=== PATIENT | male | born 1945 | race Caucasian/White ===

== ENCOUNTER 2020-10-29 12:53 | Outpatient (REF) | payer MEDICARE, SELFPAY ==
[2020-10-29 13:44] LABS: MANUAL DIFF FLAG NO
[2020-10-29 13:56] LABS: Basophils Percent Auto 0.9 % (0-2); Eosinophils Absolute Auto 0.1 X10*3/uL (0.0-0.4); Eosinophils Percent Auto 2.3 % (0-4); Hematocrit 36.8 % (42-52); Imm Gran Abs Auto 0.01 X10*3/uL (0.00-0.03); Imm Gran Pct Auto 0.2 % (0.0-0.4); Lymphocytes Absolute Auto 1.2 X10*3/uL (1.2-4.9); Lymphocytes Percent Auto 27.5 % (20-40); Mean Corpuscular HGB Conc 32.6 g/dl (31.0-36.0); Mean Corpuscular Hemoglobin 30.7 pg (27.0-33.0); Mean Corpuscular Volume 94.1 fL (80-98); Mean Platelet Volume 11.3 fL (9.4-12.4); Monocytes Absolute Auto 0.6 X10*3/uL (0.1-1.2); Monocytes Percent Auto 12.7 % (2-11); Neutrophils Absolute Auto 2.5 X10*3/uL (2.0-8.3); Neutrophils Percent Auto 56.4 % (45-73); Platelet Count 174 X10*3/uL (160-400); Red Blood Count 3.91 X10*6/uL (4.60-5.80); Red Cell Distribution Width 13.7 % (11.0-16.0); White Blood Count 4.4 X10*3/uL (4.8-10.8)
[2020-10-29 14:21] LABS: Albumin Level 4.1 g/dL (3.5-5.0); Anion Gap 14 (12-20); Blood Urea Nitrogen 46 mg/dL (9-16); Calcium 9.1 mg/dL (8.4-10.2); Carbon Dioxide 26 mmol/L (22-29); Chloride 105 mmol/L (96-108); Estimated Glomerular Filt Rate 29; Magnesium 2.1 mg/dL (1.6-2.6); Phosphorus 3.6 mg/dL (2.7-4.5); Potassium 5.4 mmol/l (3.3-5.1); Sodium 140 mmol/L (135-145)
== END 2020-10-29 12:54 | disposition home or self-care (01) ==
LOC: HO.10HDL 12:53
PROVIDERS: Absent Provider Internal Medicine Medical Oncology; PCP Internal Medicine Medical Oncology; Referring Provider Urology; Visit Provider Internal Medicine Hypertension Specialist
DX: N18.9 Chronic kidney disease, unspecified (principal); D63.8 Anemia in other chronic diseases classified elsewhere
CPT/HCPCS: 36415; 80051; 82040; 82310; 82565; 83735; 84100; 84520; 85025

== ENCOUNTER 2020-12-22 11:56 | Outpatient (REF) | payer MEDICARE, SELFPAY ==
[2020-12-22 13:44] LABS: MANUAL DIFF FLAG NO
[2020-12-22 14:11] LABS: Basophils Percent Auto 0.9 % (0-2); Eosinophils Absolute Auto 0.1 X10*3/uL (0.0-0.4); Eosinophils Percent Auto 2.2 % (0-4); Hematocrit 36.9 % (42-52); Hemoglobin 12.1 g/dl (14.0-18.0); Imm Gran Abs Auto 0.01 X10*3/uL (0.00-0.03); Imm Gran Pct Auto 0.2 % (0.0-0.4); Lymphocytes Absolute Auto 1.2 X10*3/uL (1.2-4.9); Lymphocytes Percent Auto 26.2 % (20-40); Mean Corpuscular HGB Conc 32.8 g/dl (31.0-36.0); Mean Corpuscular Hemoglobin 31.2 pg (27.0-33.0); Mean Corpuscular Volume 95.1 fL (80-98); Mean Platelet Volume 11.4 fL (9.4-12.4); Monocytes Absolute Auto 0.5 X10*3/uL (0.1-1.2); Monocytes Percent Auto 10.9 % (2-11); Neutrophils Absolute Auto 2.7 X10*3/uL (2.0-8.3); Neutrophils Percent Auto 59.6 % (45-73); Platelet Count 157 X10*3/uL (160-400); Red Blood Count 3.88 X10*6/uL (4.60-5.80); Red Cell Distribution Width 13.6 % (11.0-16.0); White Blood Count 4.6 X10*3/uL (4.8-10.8)
[2020-12-22 14:51] LABS: Anion Gap 11 (12-20); Blood Urea Nitrogen 46 mg/dL (9-16); Calcium 8.8 mg/dL (8.4-10.2); Carbon Dioxide 25 mmol/L (22-29); Chloride 106 mmol/L (96-108); Estimated Glomerular Filt Rate 31; Potassium 4.3 mmol/L (3.3-5.1); Sodium 138 mmol/L (135-145)
[2020-12-22 14:54] LABS: Prostate Specific Antigen 4.12 ng/mL (<0.05-4.0)
== END 2020-12-22 11:57 | disposition home or self-care (01) ==
LOC: HO.10HDL 11:56
PROVIDERS: Absent Provider Urology; Referring Provider Internal Medicine Medical Oncology; Visit Provider Internal Medicine Hypertension Specialist
DX: N18.9 Chronic kidney disease, unspecified (principal); D63.8 Anemia in other chronic diseases classified elsewhere; R97.20 Elevated prostate specific antigen [PSA]; Z12.5 Encounter for screening for malignant neoplasm of prostate
CPT/HCPCS: 36415; 80051; 82310; 82565; 84153; 84520; 85025

== ENCOUNTER 2021-02-09 09:57 | Outpatient (REF) | payer MEDICARE, SELFPAY ==
[2021-02-09 13:43] LABS: MANUAL DIFF FLAG NO
[2021-02-09 13:47] LABS: Eosinophils Absolute Auto 0.2 X10*3/uL (0.0-0.4); Eosinophils Percent Auto 5.8 % (0-4); Hematocrit 35.3 % (42-52); Hemoglobin 11.5 g/dl (14.0-18.0); Imm Gran Abs Auto 0.01 X10*3/uL (0.00-0.03); Imm Gran Pct Auto 0.2 % (0.0-0.4); Lymphocytes Absolute Auto 1.2 X10*3/uL (1.2-4.9); Lymphocytes Percent Auto 29.3 % (20-40); Mean Corpuscular HGB Conc 32.6 g/dl (31.0-36.0); Mean Corpuscular Hemoglobin 31.3 pg (27.0-33.0); Mean Corpuscular Volume 95.9 fL (80-98); Mean Platelet Volume 11.1 fL (9.4-12.4); Monocytes Absolute Auto 0.4 X10*3/uL (0.1-1.2); Monocytes Percent Auto 9.6 % (2-11); Neutrophils Absolute Auto 2.3 X10*3/uL (2.0-8.3); Neutrophils Percent Auto 54.1 % (45-73); Platelet Count 158 X10*3/uL (160-400); Red Blood Count 3.68 X10*6/uL (4.60-5.80); White Blood Count 4.2 X10*3/uL (4.8-10.8)
[2021-02-09 14:14] LABS: Anion Gap 15 (12-20); Blood Urea Nitrogen 40 mg/dL (9-16); Calcium 8.9 mg/dL (8.4-10.2); Carbon Dioxide 25 mmol/L (22-29); Chloride 106 mmol/L (96-108); Estimated Glomerular Filt Rate 28; Potassium 4.8 mmol/L (3.3-5.1); Sodium 141 mmol/L (135-145)
[2021-02-09 14:16] LABS: Valproate 36.3 mcg/mL (50.0-100.0)
[2021-02-09 14:29] LABS: Alanine Aminotransferase 25 U/L (0-40); Albumin Level 3.9 g/dL (3.5-5.0); Alkaline Phosphatase 76 U/L (39-117); Aspartate Amino Transferase 30 U/L (5-37); Bilirubin Direct 0.2 mg/dL (0.0-0.5); Bilirubin Total 0.7 mg/dL (0.0-1.0); Total Protein 6.2 g/dL (6.5-8.0)
== END 2021-02-09 09:58 | disposition home or self-care (01) ==
LOC: HO.10HDL 09:57
PROVIDERS: Absent Provider Psychiatry & Neurology Psychiatry; Referring Provider Internal Medicine Medical Oncology; Visit Provider Internal Medicine Hypertension Specialist
DX: N18.9 Chronic kidney disease, unspecified (principal); D63.8 Anemia in other chronic diseases classified elsewhere
CPT/HCPCS: 36415; 80051; 80076; 80164; 80175; 82310; 82565; 84520; 85025

== ENCOUNTER 2021-05-17 12:28 | Outpatient (REF) | payer MEDICARE, SELFPAY ==
[2021-05-17 13:34] LABS: MANUAL DIFF FLAG NO
[2021-05-17 13:43] LABS: Basophils Absolute Auto 0.1 X10*3/uL (0.0-0.2); Basophils Percent Auto 1.1 % (0-2); Eosinophils Absolute Auto 0.3 X10*3/uL (0.0-0.4); Eosinophils Percent Auto 5.5 % (0-4); Hematocrit 33.7 % (42-52); Hemoglobin 10.9 g/dl (14.0-18.0); Imm Gran Abs Auto 0.02 X10*3/uL (0.00-0.03); Imm Gran Pct Auto 0.4 % (0.0-0.4); Lymphocytes Absolute Auto 1.3 X10*3/uL (1.2-4.9); Lymphocytes Percent Auto 24.7 % (20-40); Mean Corpuscular HGB Conc 32.3 g/dl (31.0-36.0); Mean Corpuscular Hemoglobin 31.1 pg (27.0-33.0); Mean Corpuscular Volume 96.3 fL (80-98); Mean Platelet Volume 10.8 fL (9.4-12.4); Monocytes Absolute Auto 0.6 X10*3/uL (0.1-1.2); Monocytes Percent Auto 10.7 % (2-11); Neutrophils Percent Auto 57.6 % (45-73); Platelet Count 159 X10*3/uL (160-400); Red Cell Distribution Width 14.1 % (11.0-16.0); White Blood Count 5.2 X10*3/uL (4.8-10.8)
[2021-05-17 14:12] LABS: Anion Gap 12 (12-20); Blood Urea Nitrogen 37 mg/dL (9-16); Calcium 8.8 mg/dL (8.4-10.2); Carbon Dioxide 25 mmol/L (22-29); Chloride 110 mmol/L (96-108); Estimated Glomerular Filt Rate 27; Potassium 5.2 mmol/L (3.3-5.1); Sodium 142 mmol/L (135-145)
[2021-05-17 14:26] LABS: Prostate Specific Antigen 3.14 ng/mL (<0.05-4.0)
== END 2021-05-17 12:29 | disposition home or self-care (01) ==
LOC: HO.10HDL 12:28
PROVIDERS: Urology; PCP Internal Medicine Medical Oncology; Visit Provider Internal Medicine Hypertension Specialist
DX: Z12.5 Encounter for screening for malignant neoplasm of prostate (principal); R97.20 Elevated prostate specific antigen [PSA]; N18.9 Chronic kidney disease, unspecified; D63.8 Anemia in other chronic diseases classified elsewhere
CPT/HCPCS: 36415; 80051; 82310; 82565; 84153; 84520; 85025

== ENCOUNTER 2021-08-01 12:33 | Outpatient (REF) | payer MEDICARE, SELFPAY ==
--- NOTE | ~2021-08-01 | US_ITS ---
EXAMINATION: US EXTRACRANIAL CAROTID DUPLEX, BILATERAL CLINICAL INFORMATION: Vertigo COMPARISON: None TECHNIQUE: Real-time ultrasound and Doppler techniques (integrating B-mode 2-D vascular images, Doppler spectral analysis and color-flow Doppler imaging) were utilized to interrogate the extracranial carotid arteries, the vertebral arteries and proximal subclavian arteries bilaterally. The degree of stenosis is determined by criteria similar to NASCET. FINDINGS: Right Side: 1. There is no significant atherosclerotic plaque seen in the bifurcation/proximal ICA region. 2. The common carotid artery PSV proximally is 76.2 cm/s and distally 83.3 cm/s. 3. The proximal internal carotid artery velocities are 76.8 cm/s systolic and 22.9 cm/s diastolic. 4. The proximal external carotid artery PSV is 85.6 cm/s. 5. The vertebral artery shows antegrade flow. 6. The subclavian artery waveforms are normal. Left Side: 1. There is no significant atherosclerotic plaque seen in the bifurcation/proximal ICA region. 2. The common carotid artery PSV proximally is 87.9 cm/s and distally 89.1 cm/s. 3. The proximal internal carotid artery velocities are 73.3 cm/s systolic and 25.2 cm/s diastolic. 4. The proximal external carotid artery PSV is 80.9 cm/s. 5. The vertebral artery shows antegrade flow. 6. The subclavian artery waveforms are normal. US/US carotid duplex BI IMPRESSION: 1. RIGHT: Normal right internal carotid artery without atherosclerotic plaque or hemodynamically significant stenosis. 2. LEFT: Normal left internal carotid artery without atherosclerotic plaque or hemodynamically significant stenosis.
== END 2021-08-01 12:34 | disposition home or self-care (01) ==
LOC: HO.US 12:33
PROVIDERS: Visit Provider Psychiatry & Neurology Neurology
DX: R42 Dizziness and giddiness (principal)
CPT/HCPCS: 93880

== ENCOUNTER 2021-10-28 12:45 | Outpatient (REF) | payer MEDICARE, SELFPAY ==
[2021-10-28 14:00] LABS: Hematocrit 34.7 % (42.0-52.0); Hemoglobin 11.3 g/dl (14.0-18.0); Mean Corpuscular HGB Conc 32.6 g/dl (31.0-36.0); Mean Corpuscular Hemoglobin 31.1 pg (27.0-33.0); Mean Corpuscular Volume 95.6 fL (80.0-98.0); Mean Platelet Volume 10.6 fL (9.4-12.4); Platelet Count 177 X10*3/uL (160-400); Red Blood Count 3.63 X10*6/uL (4.60-5.80); Red Cell Distribution Width 14.1 % (11.0-16.0); White Blood Count 5.4 X10*3/uL (4.8-10.8)
[2021-10-28 14:26] LABS: Alanine Aminotransferase 21 U/L (0-40); Albumin Level 3.8 g/dL (3.5-5.0); Alkaline Phosphatase 66 U/L (39-117); Anion Gap 11 (12-20); Aspartate Amino Transferase 16 U/L (5-37); Bilirubin Total 0.3 mg/dL (0.0-1.0); Blood Urea Nitrogen 40 mg/dL (9-16); Calcium 9.3 mg/dL (8.4-10.2); Carbon Dioxide 26 mmol/L (22-29); Chloride 109 mmol/L (96-108); Estimated Glomerular Filt Rate 26; Glucose Random 72 mg/dL (60-115); Potassium 5.2 mmol/L (3.3-5.1); Sodium 141 mmol/L (135-145); Total Protein 6.4 g/dL (6.5-8.0)
[2021-10-31 16:26] LABS: Calcium (PTHI) 9.6 mg/dL (8.6-10.3); PTHI 25 pg/mL (14-64)
== END 2021-10-28 12:46 | disposition home or self-care (01) ==
LOC: HO.10HDL 12:45
PROVIDERS: Absent Provider Internal Medicine Medical Oncology; Visit Provider Internal Medicine Hypertension Specialist
DX: N18.4 Chronic kidney disease, stage 4 (severe) (principal)
CPT/HCPCS: 36415; 80053; 83970; 85027

== ENCOUNTER 2021-11-09 09:43 | Outpatient (REF) | payer MEDICARE, SELFPAY ==
[2021-11-09 10:55] LABS: COVID-19 Test Negative (Negative)
== END 2021-11-09 09:44 | disposition home or self-care (01) ==
LOC: HO.LAB 09:43
PROVIDERS: Visit Provider Internal Medicine
DX: Z20.822 Contact with and (suspected) exposure to COVID-19 (principal)
CPT/HCPCS: 36415; 87635; C9803

== ENCOUNTER 2021-11-25 09:40 | Outpatient (REF) | payer MEDICARE, SELFPAY ==
[2021-11-25 10:47] LABS: Binax Internal Control QC Valid; Binax Now Covid-19 Ag Negative (Negative)
== END 2021-11-25 09:41 | disposition home or self-care (01) ==
LOC: HO.LAB 09:40
PROVIDERS: Visit Provider Internal Medicine
DX: Z20.822 Contact with and (suspected) exposure to COVID-19 (principal)
CPT/HCPCS: 36415; C9803

== ENCOUNTER 2021-12-01 10:50 | Outpatient (REF) | payer MEDICARE, SELFPAY ==
[2021-12-01 12:38] LABS: COVID-19 Test Negative (Negative)
== END 2021-12-01 10:51 | disposition home or self-care (01) ==
LOC: HO.LAB 10:50
PROVIDERS: Visit Provider Internal Medicine
DX: Z20.822 Contact with and (suspected) exposure to COVID-19 (principal)
CPT/HCPCS: 87635; C9803

== ENCOUNTER 2021-12-09 14:46 | Outpatient (REF) | payer MEDICARE, SELFPAY ==
[2021-12-09 15:06] LABS: Binax Internal Control QC Valid; Binax Now Covid-19 Ag Negative (Negative)
== END 2021-12-09 14:47 | disposition home or self-care (01) ==
LOC: HO.LAB 14:46
PROVIDERS: Visit Provider Internal Medicine
DX: Z20.822 Contact with and (suspected) exposure to COVID-19 (principal)
CPT/HCPCS: C9803

== ENCOUNTER 2021-12-15 13:18 | Outpatient (REF) | payer MEDICARE, SELFPAY ==
[2021-12-15 14:07] LABS: COVID-19 Test Negative (Negative); IDNOW Serial# 16C4AD1C
== END 2021-12-15 13:19 | disposition home or self-care (01) ==
LOC: HO.LAB 13:18
PROVIDERS: Visit Provider Internal Medicine
DX: Z20.822 Contact with and (suspected) exposure to COVID-19 (principal)
CPT/HCPCS: 87635; C9803

== ENCOUNTER 2021-12-28 14:32 | Outpatient (REF) | payer MEDICARE, SELFPAY ==
[2021-12-28 14:56] LABS: COVID-19 Test Negative (Negative)
== END 2021-12-28 14:33 | disposition home or self-care (01) ==
LOC: HO.LAB 14:32
PROVIDERS: PCP Internal Medicine Medical Oncology; Visit Provider Internal Medicine
DX: Z20.822 Contact with and (suspected) exposure to COVID-19 (principal)
CPT/HCPCS: 87635; C9803

== ENCOUNTER 2022-01-18 12:37 | Outpatient (REF) | payer MEDICARE, SELFPAY ==
[2022-01-18 13:48] LABS: Hematocrit 36.3 % (42.0-52.0); Hemoglobin 11.8 g/dl (14.0-18.0); Mean Corpuscular HGB Conc 32.5 g/dl (31.0-36.0); Mean Corpuscular Hemoglobin 31.6 pg (27.0-33.0); Mean Corpuscular Volume 97.1 fL (80.0-98.0); Platelet Count 169 X10*3/uL (160-400); Red Blood Count 3.74 X10*6/uL (4.60-5.80); Red Cell Distribution Width 14.2 % (11.0-16.0); White Blood Count 6.7 X10*3/uL (4.8-10.8)
[2022-01-18 14:12] LABS: Alanine Aminotransferase 16 U/L (0-40); Albumin Level 3.9 g/dL (3.5-5.0); Alkaline Phosphatase 60 U/L (39-117); Anion Gap 9 (12-20); Aspartate Amino Transferase 15 U/L (5-37); Bilirubin Total 0.4 mg/dL (0.0-1.0); Blood Urea Nitrogen 40 mg/dL (9-16); Calcium 9.5 mg/dL (8.4-10.2); Carbon Dioxide 28 mmol/L (22-29); Chloride 109 mmol/L (96-108); Estimated Glomerular Filt Rate 26; Glucose Random 79 mg/dL (60-115); Potassium 4.8 mmol/L (3.3-5.1); Sodium 141 mmol/L (135-145); Total Protein 6.3 g/dL (6.5-8.0)
[2022-01-19 14:33] LABS: Calcium (PTHI) 9.5 mg/dL (8.6-10.3); PTHI 50 pg/mL (14-64)
== END 2022-01-18 12:38 | disposition home or self-care (01) ==
LOC: HO.10HDLR 12:37
PROVIDERS: Absent Provider Internal Medicine Medical Oncology; Visit Provider Internal Medicine Hypertension Specialist
DX: N18.4 Chronic kidney disease, stage 4 (severe) (principal)
CPT/HCPCS: 36415; 80053; 83970; 85027

== ENCOUNTER 2022-02-10 09:36 | Outpatient (REF) | payer SELFPAY ==
--- NOTE | 2022-02-10 13:24 | MHC.AU.HFA ---
Hearing Instrument Fitting- Adult- Binaural Date of Visit: 02/10/22 Hearing Instruments Dispensed: Right Ear: Turret Lathe Tender: Phonak Model: Audeo P90-R Serial Number: [id number] Repair Warranty: 11/15/2024 Loss and Damage Warranty: 11/15/2024 Battery Size: Rechargeable Type of Wax Guard: Cerushield Left Ear: Turret Lathe Tender: Phonak Model: Audeo P90-R Serial Number: [id number] Repair Warranty: 11/15/2024 Loss and Damage Warranty: 11/15/2024 Battery Size: Rechargeable Type of Wax Guard: Cerushield Summary of Fitting: Dr. Zavala was seen today for a hearing aid fitting/transfer of care. He brings with him today a pair of Phonak Audeo P90-R hearing aids that he received from a friend that is an ENT physician in [place]. These hearing aids are new and have not yet been programmed for him. He is an experienced hearing aid user and has previously used [facility] hearing aids. He provided an audiogram from 02/06/[address] Woodard's office. Hearing aids were set up, programmed to his hearing, set to 100% target gain, and feedback measures were run. He reports comfortable fit and sound quality. Counseled on proper care and use of the hearing aids, including insertion/removal, cleaning, wax guard changing, hearings reporter use, etc. Paired to his cell phone for streaming and the [employer] tre. Recommendations: Recommendations: Hearing instrument care and maintenance were discussed and practiced. Hearing Instrument maintenance in 6 months, or sooner if needed. Please call our clinic with any questions or concerns. 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
== END 2022-02-10 09:37 | disposition home or self-care (01) ==
LOC: HO.HAP 09:36
PROVIDERS: Visit Provider Internal Medicine Medical Oncology
DX: Z46.1 Encounter for fitting and adjustment of hearing aid (principal)
CPT/HCPCS: V5011

== ENCOUNTER 2022-04-10 11:31 | Outpatient (REF) | payer MEDICARE, SELFPAY ==
[2022-04-10 13:06] LABS: MANUAL DIFF FLAG NO
[2022-04-10 13:11] LABS: Basophils Absolute Auto 0.1 X10*3/uL (0.0-0.2); Basophils Percent Auto 1.2 % (0-2); Eosinophils Absolute Auto 0.2 X10*3/uL (0.0-0.4); Eosinophils Percent Auto 3.2 % (0-4); Hematocrit 38.5 % (42.0-52.0); Hemoglobin 12.4 g/dl (14.0-18.0); Imm Gran Abs Auto 0.02 X10*3/uL (0.00-0.03); Imm Gran Pct Auto 0.4 % (0.0-0.4); Lymphocytes Absolute Auto 1.9 X10*3/uL (1.2-4.9); Lymphocytes Percent Auto 38.1 % (20-40); Mean Corpuscular HGB Conc 32.2 g/dl (31.0-36.0); Mean Corpuscular Hemoglobin 30.9 pg (27.0-33.0); Mean Platelet Volume 10.8 fL (9.4-12.4); Monocytes Absolute Auto 0.6 X10*3/uL (0.1-1.2); Monocytes Percent Auto 11.4 % (2-11); Neutrophils Absolute Auto 2.3 x10*3/uL (2.0-8.3); Neutrophils Percent Auto 45.7 % (45-73); Platelet Count 172 X10*3/uL (160-400); Red Blood Count 4.01 X10*6/uL (4.60-5.80); Red Cell Distribution Width 14.1 % (11.0-16.0); White Blood Count 4.9 X10*3/uL (4.8-10.8)
[2022-04-10 13:26] LABS: Alanine Aminotransferase 27 U/L (0-40); Albumin Level 4.1 g/dL (3.5-5.0); Alkaline Phosphatase 58 U/L (39-117); Anion Gap 12 (12-20); Aspartate Amino Transferase 18 U/L (5-37); Bilirubin Total 0.5 mg/dL (0.0-1.0); Blood Urea Nitrogen 38 mg/dL (9-16); Calcium 10.1 mg/dL (8.4-10.2); Carbon Dioxide 27 mmol/L (22-29); Chloride 107 mmol/L (96-108); Cholesterol 225 mg/dL; Estimated Glomerular Filt Rate 24; Glucose Fasting 92 mg/dL (60-99); HDL Cholesterol 68 mg/dL; LDL Cholesterol Calculated 135 mg/dl; Potassium 5.3 mmol/L (3.3-5.1); Sodium 141 mmol/L (135-145); Total Protein 6.8 g/dL (6.5-8.0); Triglycerides 114 mg/dL
[2022-04-10 13:50] LABS: Prostate Specific Antigen 3.16 ng/mL (<0.05-4.0)
== END 2022-04-10 11:32 | disposition home or self-care (01) ==
LOC: HO.10HDL 11:31
PROVIDERS: Visit Provider Internal Medicine Medical Oncology
DX: Z12.5 Encounter for screening for malignant neoplasm of prostate (principal); N18.9 Chronic kidney disease, unspecified; N40.1 Benign prostatic hyperplasia with lower urinary tract symptoms; R63.4 Abnormal weight loss
CPT/HCPCS: 36415; 80053; 80061; 84153; 85025

== ENCOUNTER 2022-06-23 12:35 | Outpatient (REF) | payer MEDICARE, SELFPAY | END 2022-06-23 12:36 | disposition home or self-care (01) | LOC: HO.HAP 12:35 | PROVIDERS: Visit Provider Internal Medicine Medical Oncology | DX: Z13.89 Encounter for screening for other disorder (principal) ==

== ENCOUNTER 2022-06-26 09:38 | Outpatient (REF) | payer SELFPAY | END 2022-06-26 09:39 | disposition home or self-care (01) | LOC: HO.HAP 09:38 | PROVIDERS: Visit Provider Internal Medicine Medical Oncology | DX: Z46.1 Encounter for fitting and adjustment of hearing aid (principal); H90.3 Sensorineural hearing loss, bilateral | CPT/HCPCS: V5267 ==

== ENCOUNTER 2022-06-26 10:33 | Outpatient (REF) | payer MEDICARE, SELFPAY ==
[2022-06-26 13:36] LABS: MANUAL DIFF FLAG NO
[2022-06-26 13:50] LABS: Basophils Percent Auto 0.8 % (0-2); Eosinophils Absolute Auto 0.2 X10*3/uL (0.0-0.4); Eosinophils Percent Auto 4.7 % (0-4); Hematocrit 36.4 % (42.0-52.0); Hemoglobin 11.8 g/dl (14.0-18.0); Imm Gran Abs Auto 0.02 X10*3/uL (0.00-0.03); Imm Gran Pct Auto 0.4 % (0.0-0.4); Lymphocytes Absolute Auto 1.2 X10*3/uL (1.2-4.9); Lymphocytes Percent Auto 24.7 % (20-40); Mean Corpuscular HGB Conc 32.4 g/dl (31.0-36.0); Mean Corpuscular Hemoglobin 31.5 pg (27.0-33.0); Mean Corpuscular Volume 97.1 fL (80.0-98.0); Mean Platelet Volume 11.2 fL (9.4-12.4); Monocytes Absolute Auto 0.5 X10*3/uL (0.1-1.2); Monocytes Percent Auto 10.4 % (2-11); Neutrophils Absolute Auto 2.9 x10*3/uL (2.0-8.3); Platelet Count 151 X10*3/uL (160-400); Red Blood Count 3.75 X10*6/uL (4.60-5.80); Red Cell Distribution Width 14.4 % (11.0-16.0); White Blood Count 4.9 X10*3/uL (4.8-10.8)
[2022-06-26 14:05] LABS: Alanine Aminotransferase 24 U/L (0-40); Alkaline Phosphatase 56 U/L (39-117); Anion Gap 16 (12-20); Aspartate Amino Transferase 23 U/L (5-37); Bilirubin Total 0.4 mg/dL (0.0-1.0); Blood Urea Nitrogen 41 mg/dL (9-16); Calcium 9.6 mg/dL (8.4-10.2); Carbon Dioxide 25 mmol/L (22-29); Chloride 107 mmol/L (96-108); Cholesterol 202 mg/dL; Estimated Glomerular Filt Rate 27; Glucose Random 100 mg/dL (60-115); HDL Cholesterol 74 mg/dL; LDL Cholesterol Calculated 116 mg/dl; Potassium 5.1 mmol/L (3.3-5.1); Sodium 143 mmol/L (135-145); Total Protein 6.4 g/dL (6.5-8.0); Triglycerides 62 mg/dL
[2022-06-26 14:28] LABS: Prostate Specific Antigen 3.53 ng/mL (<0.05-4.0)
== END 2022-06-26 10:34 | disposition home or self-care (01) ==
LOC: HO.10HDL 10:33
PROVIDERS: Absent Provider Internal Medicine Hypertension Specialist; Referring Provider Urology; Visit Provider Internal Medicine Medical Oncology
DX: N18.9 Chronic kidney disease, unspecified (principal); N40.1 Benign prostatic hyperplasia with lower urinary tract symptoms; N13.8 Other obstructive and reflux uropathy; Z86.2 Personal history of diseases of the blood and blood-forming organs and certain disorders involving the immune mechanism; Z12.5 Encounter for screening for malignant neoplasm of prostate
CPT/HCPCS: 36415; 80053; 80061; 84153; 85025

== ENCOUNTER 2022-07-18 14:12 | Outpatient (REF) | payer MEDICARE, SELFPAY | END 2022-07-18 14:13 | disposition home or self-care (01) | LOC: HO.HAP 14:12 | PROVIDERS: Visit Provider Internal Medicine Medical Oncology | DX: Z13.89 Encounter for screening for other disorder (principal) ==

== ENCOUNTER 2022-07-19 13:22 | Outpatient (REF) | payer MEDICARE, SELFPAY | END 2022-07-19 13:23 | disposition home or self-care (01) | LOC: HO.HAP 13:22 | PROVIDERS: Visit Provider Internal Medicine Medical Oncology | DX: Z13.89 Encounter for screening for other disorder (principal) ==

== ENCOUNTER 2022-10-10 08:50 | Outpatient (REF) | payer SELFPAY ==
--- NOTE | 2022-10-10 17:14 | MHC.AU.HFU ---
Hearing Instrument Follow-Up- Binaural Date of Visit: 10/10/22 Right Ear: Senior Project Architect: Phonak Audeo P 90-R Serial #[id number] Repair Warranty: 11/15/2024 Loss and Damage Warranty: 11/15/2024 Service Plan: None Battery Size: Rechargeable Type of Dome: Medium vented Type of Wax Guard: Cerushield Dispensed By: [employer] Date of Fitting: ? Left Ear: Senior Project Architect: Phonak Audeo P 90-R Serial #[id number] Repair Warranty: 11/15/2024 Loss and Damage Warranty: 11/15/2024 Service Plan: NONE Battery Size: Rechargeable Type of Dome: Medium vented Type of Wax Guard: Dispensed By: [employer] Date of Fitting: ? Follow-Up Summary: Patient comes in today with 3 concerns. 1) The alignment of the wax guards does not stay straight many times and he has to use a pin to straighten them to change 2) the retention tail comes off easily, and 3) the aids seem to be moving out of the ear recently and the left ear is sore. Changed wax guards, domes, and retention tails today. Discussed the cleaning regiment again and how to try to reduce the chance of moving wax guard out of alignment. Otoscopy showed both ears have domes stuck deep in the canals. The left canal is very red an inflamed and question if 2 domes are stuck. Called Dr. Woodard's office and patient was told to go straight to Dr. Woodard's office when leaving our office for removal of the domes. Discussed need when dome is not on the aid to make sure it is not in the ear still and need to make sure dome is securely on the manager ems before placing in the ear. Recommendations:Recommendations: Please contact our clinic with any questions or concerns. Diagnosis Code(s): Primary Diagnosis: H90.3 Bilateral Sensorineural Hearing Loss Signature: Provider: Godfrey Joyner, [facility]
== END 2022-10-10 08:51 | disposition home or self-care (01) ==
LOC: HO.HAP 08:50
PROVIDERS: Visit Provider Internal Medicine Medical Oncology
DX: Z13.89 Encounter for screening for other disorder (principal)

== ENCOUNTER 2022-10-19 12:56 | Outpatient (REF) | payer MEDICARE, SELFPAY ==
[2022-10-19 13:40] LABS: MANUAL DIFF FLAG NO
[2022-10-19 13:43] LABS: Basophils Absolute Auto 0.1 X10*3/uL (0.0-0.2); Eosinophils Absolute Auto 0.1 X10*3/uL (0.0-0.4); Eosinophils Percent Auto 2.2 % (0-4); Hematocrit 36.6 % (42.0-52.0); Hemoglobin 12.2 g/dl (14.0-18.0); Imm Gran Abs Auto 0.01 X10*3/uL (0.00-0.03); Imm Gran Pct Auto 0.2 % (0.0-0.4); Lymphocytes Absolute Auto 1.5 X10*3/uL (1.2-4.9); Lymphocytes Percent Auto 29.5 % (20-40); Mean Corpuscular HGB Conc 33.3 g/dl (31.0-36.0); Mean Corpuscular Hemoglobin 32.3 pg (27.0-33.0); Mean Corpuscular Volume 96.8 fL (80.0-98.0); Monocytes Absolute Auto 0.4 X10*3/uL (0.1-1.2); Monocytes Percent Auto 8.6 % (2-11); Neutrophils Absolute Auto 2.9 x10*3/uL (2.0-8.3); Neutrophils Percent Auto 58.5 % (45-73); Platelet Count 172 X10*3/uL (160-400); Red Blood Count 3.78 X10*6/uL (4.60-5.80); Red Cell Distribution Width 14.7 % (11.0-16.0)
[2022-10-19 14:44] LABS: Alanine Aminotransferase 23 U/L (0-40); Albumin Level 3.7 g/dL (3.5-5.0); Alkaline Phosphatase 59 U/L (39-117); Anion Gap 10 (12-20); Aspartate Amino Transferase 21 U/L (5-37); Bilirubin Total 0.4 mg/dL (0.0-1.0); Blood Urea Nitrogen 40 mg/dL (9-16); Calcium 9.5 mg/dL (8.4-10.2); Carbon Dioxide 29 mmol/L (22-29); Chloride 102 mmol/L (96-108); Cholesterol 220 mg/dL; Estimated Glomerular Filt Rate 26; Glucose Random 170 mg/dL (60-115); HDL Cholesterol 76 mg/dL; LDL Cholesterol Calculated 125 mg/dl; Potassium 4.4 mmol/L (3.3-5.1); Prostate Specific Antigen 3.88 ng/mL (<0.05-4.0); Sodium 137 mmol/L (135-145); Total Protein 6.1 g/dL (6.5-8.0); Triglycerides 96 mg/dL
== END 2022-10-19 12:57 | disposition home or self-care (01) ==
LOC: HO.10HDL 12:56
PROVIDERS: Absent Provider Internal Medicine Hypertension Specialist; Visit Provider Internal Medicine Medical Oncology
DX: Z12.5 Encounter for screening for malignant neoplasm of prostate (principal); N40.1 Benign prostatic hyperplasia with lower urinary tract symptoms; N18.9 Chronic kidney disease, unspecified
CPT/HCPCS: 36415; 80053; 80061; 84153; 85025

== ENCOUNTER 2022-10-24 11:55 | Outpatient (REF) | payer MEDICARE, SELFPAY ==
[2022-10-24 14:33] LABS: Estimated Average Glucose 108 mg/dL; Hemoglobin A1c % 5.4 %
[2022-10-24 14:49] LABS: Glucose Fasting 84 mg/dL (60-99)
== END 2022-10-24 11:56 | disposition home or self-care (01) ==
LOC: HO.10HDL 11:55
PROVIDERS: Absent Provider Internal Medicine Hypertension Specialist; Visit Provider Internal Medicine Medical Oncology
DX: R73.09 Other abnormal glucose (principal)
CPT/HCPCS: 36415; 82947; 83036

== ENCOUNTER 2022-12-15 09:57 | Day surgery (SDC) | payer MEDICARE, SELFPAY ==
--- NOTE | 2022-12-14 13:21 | P.CONAN_ITS ---
Documented by User: Elly Epps NP 12/14/22 13:27 HPI - Anesthesia Eval Consult details Narrative: 77yo M for Colonoscopy [facility] Past Medical History Medical History (Updated 12/14/22 @ 13:22 by Elly Epps NP) Anemia BPH (benign prostatic hyperplasia) CRI (chronic renal insufficiency) Depression Surgical History Surgical History (Updated 12/14/22 @ 13:22 by Elly Epps NP) H/O colonoscopy H/O inguinal hernia repair Social History Social History Patient Tobacco Use Status: Never used Tobacco Use of substances other than those prescribed or required for medical reasons: No Are you DNR?: No Advance Directives: No Advance Directives Information Provided: Yes Meds Allergies Allergy/AdvReac Type Severity Reaction Status Date / Time No Known Allergies Allergy Verified 12/14/22 13:22 Home Medications Medication Instructions Recorded Confirmed Last Taken Type Colace 100 mg 12/14/22 Unknown History Trintellix 10 mg 12/14/22 Unknown History divalproex 250 mg tablet,delayed mg PO 12/14/22 12/14/22 Unknown History release divalproex 250 mg tablet,delayed mg PO 12/14/22 12/14/22 Unknown History release finasteride 5 mg tablet 1 tab PO DAILY 12/14/22 12/14/22 Unknown History multivitamin 12/14/22 Unknown History tamsulosin 0.4 mg capsule 1 cap PO BID 12/14/22 12/14/22 Unknown History Exam Exam Date and Time: December 14, 2022 1321 Pertinent Lab Results Pertinent Lab Results: Laboratory Tests 10/19/22 10/19/22 13:05 13:05 WBC 5.0 Hgb 12.2 L Hct 36.6 L Plt Count 172 Sodium 137 Potassium 4.4 Chloride 102 Carbon Dioxide 29 BUN 40 H Creatinine 2.48 H Assessment and Plan Assessment Anesthesia Assessment: Chart Reviewed Documented by User: Sanjay Saba MD 12/15/22 13:22 [facility] Past Medical History Medical History (Updated 12/14/22 @ 13:22 by Elly Epps NP) Anemia BPH (benign prostatic hyperplasia) CRI (chronic renal insufficiency) Depression Functional capacity: independent ambulation Family History Family history of problems with anesthesia: No Surgical History Surgical History (Updated 12/14/22 @ 13:22 by Elly Epps NP) H/O colonoscopy H/O inguinal hernia repair History of Problems with Anesthesia: No Social History Social History Patient Tobacco Use Status: Never used Tobacco Use of substances other than those prescribed or required for medical reasons: No Are you DNR?: No Advance Directives: No Advance Directives Information Provided: Yes Meds Allergies Allergy/AdvReac Type Severity Reaction Status Date / Time No Known Allergies Allergy Verified 12/14/22 13:22 Home Medications Medication Instructions Recorded Confirmed Last Taken Type Colace 100 mg 12/14/22 Unknown History Trintellix 10 mg 12/14/22 Unknown History divalproex 250 mg tablet,delayed mg PO 12/14/22 12/14/22 Unknown History release divalproex 250 mg tablet,delayed mg PO 12/14/22 12/14/22 Unknown History release finasteride 5 mg tablet 1 tab PO DAILY 12/14/22 12/14/22 Unknown History multivitamin 12/14/22 Unknown History tamsulosin 0.4 mg capsule 1 cap PO BID 12/14/22 12/14/22 Unknown History Exam Airway Mallampati Class: III TM Dist: >3cm Neck ROM: Full Loose/Missing/Broken Teeth: Yes Heart: S1,S2 Lungs: b/l breath sounds Assessment and Plan Assessment Anesthesia Assessment: Anesthesia Plan Discussed Final Anesthetic Review Family History of Problems with Anesthesia: No History of Problems with Anesthesia: No NPO: Yes ASA Class: II Final Preanesthetic Review: Meds/Allgs Chart Reviewed, Consent Obtained/Reviewed and Anes Risks/Benef Reviewed Patient Risk: Intermediate Procedure Risk: Intermediate Anesthetic Plan Anesthetic Plan: MAC: Disposition: Standard PACU
[2022-12-15 10:28] VITALS: BMI 22.2
[2022-12-15 10:34] VITALS: BP 122/79; PULSE 65; RESP 22; TEMP 36.6; O2SAT 100
[2022-12-15] MEDS: Lactated Ringers 1,000 ML 100 ML IVCONT (10:51)
--- NOTE | 2022-12-15 13:13 | P.BOP_ITS ---
Brief Operative Note Date of Service: 12/15/22 Pre-op diagnosis: Screening Post-op diagnosis: other (Colon polyp) Procedure: Colonoscopy to the cecum and TI with hot snare polypectomy Surgeon: Ari Rodríguez Anesthesia: MAC Was an Shift Supervisor Rn used for this Procedure?: No Estimated blood loss (mL): 0 Pathology: other (A. Transverse colon polyp) Condition: stable Disposition: PACU
[2022-12-15 13:21] VITALS: BP 89/54; PULSE 59; RESP 15; TEMP 36.3; O2SAT 99
[2022-12-15 13:36] VITALS: BP 112/66; PULSE 57; RESP 16; TEMP 36.4; O2SAT 99
[2022-12-15 13:51] VITALS: BP 116/70; PULSE 53; RESP 16; TEMP 36.5; O2SAT 99
[2022-12-15 14:06] VITALS: BP 118/75; PULSE 51; RESP 16; TEMP 36.5; O2SAT 99
--- NOTE | 2022-12-16 05:03 | OP_ITS ---
SURGEON: Ari Rodríguez MD INDICATIONS: The patient presents for evaluation of colorectal cancer screening and personal history of tubular adenomas of colon. Full consent was obtained from him for the procedure, including risks of bleeding and perforation. PREOPERATIVE DIAGNOSIS: POSTOPERATIVE DIAGNOSIS: PROCEDURE PERFORMED: Colonoscopy to the cecum and terminal ileum with hot snare polypectomy. ESTIMATED BLOOD LOSS: COMPLICATIONS: ANESTHESIA: Medications used, monitored anesthesia care. ASSISTANTS: SPECIMENS: PREOPERATIVE DIAGNOSES: Colorectal cancer screening and personal history of tubular adenomas of colon. POSTOPERATIVE DIAGNOSES: Colorectal cancer screening and personal history of tubular adenomas of colon, colon polyp, diverticulosis, internal hemorrhoids. PROCEDURE IN DETAIL: The patient was placed in left lateral decubitus position. The digital rectal exam revealed no abnormalities. The Olympus video pediatric colonoscope was entered into the rectum and advanced to the cecum. Advancement was difficult and required abdominal wall pressure. He did have a somewhat redundant colon, and there were some areas of liquid stools, which had to be irrigated and suctioned away as best as possible. However, once in the cecum, I did identify a normal-appearing cecal pouch with appendiceal orifice and a normal-appearing ileocecal valve. The terminal ileum was cannulated and appeared normal. The scope was withdrawn back in the colon. The entire cecum and ileocecal valve appeared normal. The scope was slowly withdrawn assessing all mucosal surfaces carefully. Again, there were some areas of liquid stool which were irrigated and suctioned away as best as possible. I did visualize an approximately 10 mm grossly adenomatous polyp in the transverse colon, which was removed by hot snare polypectomy and recovered by suction. The polypectomy site appeared clean, without any sign of residual polyp nor bleeding. I did not visualize any other polyps, colitis, or angiodysplasia. There was a mild amount of sigmoid diverticulosis. At 20 cm were 2 previously placed submucosal ink markings with a scar in between the 2 markings consistent with a previous polypectomy site. In the rectum the scope was retroflexed visualizing internal hemorrhoids, but no other pathology. The scope was straightened and withdrawn from the patient. He tolerated the procedure well and was returned to the recovery area in stable condition. IMPRESSION: 1. Colon polyp 2. Diverticulosis. 3. Internal hemorrhoids. PLAN: The results of the pathology will be checked. He was advised not to use any aspirin nor NSAIDS for 1 week. Given today's findings, his previous history, and the somewhat difficult exam with somewhat of a limited prep, I recommended a repeat colonoscopy in 3 years for further screening and surveillance. At that point he will be close to 82 years old and we would need to take his clinical condition into account as well. He will otherwise see me on a p.r.n. basis. This has been discussed with his . MD LUIS CARLOS Urena/SONNY / [id number] MTDD
== END 2022-12-15 14:49 | disposition home or self-care (01) ==
PROVIDERS: PCP Internal Medicine Medical Oncology; Visit Provider Internal Medicine
PROC: 0DJD8ZZ Inspection of Lower Intestinal Tract, Via Natural or Artificial Opening Endoscopic (ICD-10-PCS; CPT 45378; principal; 2022-12-15 11:10)
DX: Z12.11 Encounter for screening for malignant neoplasm of colon (principal); Z86.010 Personal history of colon polyps; D12.3 Benign neoplasm of transverse colon; K57.30 Diverticulosis of large intestine without perforation or abscess without bleeding; K64.8 Other hemorrhoids; N18.9 Chronic kidney disease, unspecified; N40.0 Benign prostatic hyperplasia without lower urinary tract symptoms; D64.9 Anemia, unspecified; F32.A Depression, unspecified; Z79.899 Other long term (current) drug therapy
CPT/HCPCS: 45385; 88305

== ENCOUNTER 2023-01-09 11:44 | Outpatient (REF) | payer SELFPAY | END 2023-01-09 11:45 | disposition home or self-care (01) | LOC: HO.HAP 11:44 | PROVIDERS: Visit Provider Internal Medicine Medical Oncology | DX: Z46.1 Encounter for fitting and adjustment of hearing aid (principal); H90.3 Sensorineural hearing loss, bilateral | CPT/HCPCS: V5267 ==

== ENCOUNTER 2023-01-10 13:11 | Outpatient (REF) | payer MEDICARE, SELFPAY ==
[2023-01-10 14:41] LABS: MANUAL DIFF FLAG NO
[2023-01-10 14:53] LABS: Basophils Absolute Auto 0.1 X10*3/uL (0.0-0.2); Eosinophils Absolute Auto 0.2 X10*3/uL (0.0-0.4); Hematocrit 38.6 % (42.0-52.0); Hemoglobin 12.6 g/dl (14.0-18.0); Imm Gran Abs Auto 0.02 X10*3/uL (0.00-0.03); Imm Gran Pct Auto 0.4 % (0.0-0.4); Lymphocytes Absolute Auto 1.4 X10*3/uL (1.2-4.9); Lymphocytes Percent Auto 27.3 % (20-40); Mean Corpuscular HGB Conc 32.6 g/dl (31.0-36.0); Mean Corpuscular Hemoglobin 31.1 pg (27.0-33.0); Mean Corpuscular Volume 95.3 fL (80.0-98.0); Monocytes Absolute Auto 0.6 X10*3/uL (0.1-1.2); Neutrophils Absolute Auto 2.7 x10*3/uL (2.0-8.3); Neutrophils Percent Auto 55.3 % (45-73); Platelet Count 182 X10*3/uL (160-400); Red Blood Count 4.05 X10*6/uL (4.60-5.80); White Blood Count 4.9 X10*3/uL (4.8-10.8)
[2023-01-10 15:32] LABS: Alanine Aminotransferase 31 U/L (0-40); Albumin Level 3.9 g/dL (3.5-5.0); Alkaline Phosphatase 53 U/L (39-117); Anion Gap 13 (12-20); Aspartate Amino Transferase 23 U/L (5-37); Bilirubin Total 0.6 mg/dL (0.0-1.0); Blood Urea Nitrogen 36 mg/dL (9-16); Calcium 9.6 mg/dL (8.4-10.2); Carbon Dioxide 28 mmol/L (22-29); Chloride 108 mmol/L (96-108); Cholesterol 215 mg/dL; Estimated Glomerular Filt Rate 29; Glucose Fasting 82 mg/dL (60-99); HDL Cholesterol 68 mg/dL; LDL Cholesterol Calculated 133 mg/dl; Potassium 5.7 mmol/L (3.3-5.1); Sodium 143 mmol/L (135-145); Total Protein 6.3 g/dL (6.5-8.0); Triglycerides 73 mg/dL
== END 2023-01-10 13:12 | disposition home or self-care (01) ==
LOC: HO.10HDL 13:11
PROVIDERS: Absent Provider Internal Medicine Hypertension Specialist; Visit Provider Internal Medicine Medical Oncology
DX: E78.5 Hyperlipidemia, unspecified (principal); N18.9 Chronic kidney disease, unspecified; Z86.2 Personal history of diseases of the blood and blood-forming organs and certain disorders involving the immune mechanism
CPT/HCPCS: 36415; 80053; 80061; 85025

== ENCOUNTER 2023-01-26 12:43 | Outpatient (REF) | payer MEDICARE, SELFPAY ==
[2023-01-26 15:09] LABS: Anion Gap 14 (12-20); Blood Urea Nitrogen 39 mg/dL (9-16); Calcium 9.6 mg/dL (8.4-10.2); Carbon Dioxide 26 mmol/L (22-29); Chloride 106 mmol/L (96-108); Estimated Glomerular Filt Rate 27; Potassium 5.3 mmol/L (3.3-5.1); Sodium 141 mmol/L (135-145)
== END 2023-01-26 12:44 | disposition home or self-care (01) ==
LOC: HO.10HDL 12:43
PROVIDERS: Referring Provider Internal Medicine Medical Oncology; Visit Provider Internal Medicine Hypertension Specialist
DX: N18.4 Chronic kidney disease, stage 4 (severe) (principal)
CPT/HCPCS: 36415; 80051; 82310; 82565; 84520

== ENCOUNTER 2023-05-09 12:39 | Outpatient (REF) | payer MEDICARE, SELFPAY ==
[2023-05-09 13:29] LABS: MANUAL DIFF FLAG NO
[2023-05-09 13:37] LABS: Basophils Percent Auto 0.8 % (0-2); Eosinophils Absolute Auto 0.1 X10*3/uL (0.0-0.4); Eosinophils Percent Auto 1.8 % (0-4); Hematocrit 33.7 % (42.0-52.0); Imm Gran Abs Auto 0.01 X10*3/uL (0.00-0.03); Imm Gran Pct Auto 0.2 % (0.0-0.4); Lymphocytes Absolute Auto 1.3 X10*3/uL (1.2-4.9); Lymphocytes Percent Auto 25.8 % (20-40); Mean Corpuscular HGB Conc 32.6 g/dl (31.0-36.0); Mean Corpuscular Hemoglobin 31.3 pg (27.0-33.0); Mean Corpuscular Volume 95.7 fL (80.0-98.0); Mean Platelet Volume 11.1 fL (9.4-12.4); Monocytes Absolute Auto 0.6 X10*3/uL (0.1-1.2); Monocytes Percent Auto 11.9 % (2-11); Neutrophils Absolute Auto 2.9 x10*3/uL (2.0-8.3); Neutrophils Percent Auto 59.5 % (45-73); Platelet Count 158 X10*3/uL (160-400); Red Blood Count 3.52 X10*6/uL (4.60-5.80); Red Cell Distribution Width 14.2 % (11.0-16.0); White Blood Count 4.9 X10*3/uL (4.8-10.8)
[2023-05-09 14:23] LABS: Alanine Aminotransferase 24 U/L (0-40); Albumin Level 3.7 g/dL (3.5-5.0); Alkaline Phosphatase 63 U/L (39-117); Anion Gap 13 (12-20); Aspartate Amino Transferase 21 U/L (5-37); Bilirubin Total 0.4 mg/dL (0.0-1.0); Blood Urea Nitrogen 39 mg/dL (9-16); Calcium 9.5 mg/dL (8.4-10.2); Carbon Dioxide 23 mmol/L (22-29); Chloride 111 mmol/L (96-108); Cholesterol 199 mg/dL; Estimated Glomerular Filt Rate 28; Glucose Fasting 93 mg/dL (60-99); HDL Cholesterol 66 mg/dL; LDL Cholesterol Calculated 117 mg/dl; Potassium 4.9 mmol/L (3.3-5.1); Sodium 142 mmol/L (135-145); Total Protein 6.2 g/dL (6.5-8.0); Triglycerides 83 mg/dL
[2023-05-09 14:33] LABS: Prostate Specific Antigen 2.91 ng/mL (<0.05-4.0)
== END 2023-05-09 12:40 | disposition home or self-care (01) ==
LOC: HO.10HDL 12:39
PROVIDERS: Absent Provider Internal Medicine Hypertension Specialist; Visit Provider Internal Medicine Medical Oncology
DX: E78.5 Hyperlipidemia, unspecified (principal); N18.9 Chronic kidney disease, unspecified; N40.1 Benign prostatic hyperplasia with lower urinary tract symptoms; Z12.5 Encounter for screening for malignant neoplasm of prostate; Z86.2 Personal history of diseases of the blood and blood-forming organs and certain disorders involving the immune mechanism
CPT/HCPCS: 36415; 80053; 80061; 84153; 85025

== ENCOUNTER 2023-08-16 12:29 | Outpatient (REF) | payer MEDICARE, SELFPAY ==
[2023-08-16 13:14] LABS: MANUAL DIFF FLAG NO
[2023-08-16 14:00] LABS: Basophils Absolute Auto 0.1 X10*3/uL (0.0-0.2); Eosinophils Absolute Auto 0.1 X10*3/uL (0.0-0.4); Eosinophils Percent Auto 1.6 % (0-4); Hematocrit 35.4 % (42.0-52.0); Hemoglobin 11.4 g/dl (14.0-18.0); Imm Gran Abs Auto 0.01 X10*3/uL (0.00-0.03); Imm Gran Pct Auto 0.2 % (0.0-0.4); Lymphocytes Absolute Auto 1.3 X10*3/uL (1.2-4.9); Lymphocytes Percent Auto 25.6 % (20-40); Mean Corpuscular HGB Conc 32.2 g/dl (31.0-36.0); Mean Corpuscular Hemoglobin 31.3 pg (27.0-33.0); Mean Corpuscular Volume 97.3 fL (80.0-98.0); Mean Platelet Volume 11.2 fL (9.4-12.4); Monocytes Absolute Auto 0.5 X10*3/uL (0.1-1.2); Monocytes Percent Auto 10.3 % (2-11); Neutrophils Absolute Auto 3.1 x10*3/uL (2.0-8.3); Neutrophils Percent Auto 61.3 % (45-73); Platelet Count 161 X10*3/uL (160-400); Red Blood Count 3.64 X10*6/uL (4.60-5.80); Red Cell Distribution Width 14.4 % (11.0-16.0)
[2023-08-16 14:27] LABS: Alanine Aminotransferase 18 U/L (0-40); Albumin Level 3.9 g/dL (3.5-5.0); Alkaline Phosphatase 67 U/L (39-117); Anion Gap 14 (12-20); Aspartate Amino Transferase 20 U/L (5-37); Bilirubin Total 0.4 mg/dL (0.0-1.0); Blood Urea Nitrogen 44 mg/dL (9-16); Calcium 9.3 mg/dL (8.4-10.2); Carbon Dioxide 23 mmol/L (22-29); Chloride 110 mmol/L (96-108); Estimated Glomerular Filt Rate 30; Glucose Random 84 mg/dL (60-115); Potassium 5.3 mmol/L (3.3-5.1); Sodium 142 mmol/L (135-145); Total Protein 6.6 g/dL (6.5-8.0)
[2023-08-17 16:58] LABS: Calcium (PTHI) 9.1 mg/dL (8.6-10.3); PTHI 39 pg/mL (16-77)
== END 2023-08-16 12:30 | disposition home or self-care (01) ==
LOC: HO.LAB 12:29
PROVIDERS: PCP Internal Medicine Medical Oncology; Referring Provider Internal Medicine Hypertension Specialist; Visit Provider Internal Medicine Medical Oncology
DX: N18.9 Chronic kidney disease, unspecified (principal); Z86.2 Personal history of diseases of the blood and blood-forming organs and certain disorders involving the immune mechanism
CPT/HCPCS: 36415; 80053; 83970; 85025

== ENCOUNTER 2023-09-11 13:06 | Outpatient (REF) | payer SELFPAY | END 2023-09-11 13:07 | disposition home or self-care (01) | LOC: HO.HAP 13:06 | PROVIDERS: Visit Provider Internal Medicine Medical Oncology | DX: Z46.1 Encounter for fitting and adjustment of hearing aid (principal) | CPT/HCPCS: 92593; V5267 ==

== ENCOUNTER 2023-09-20 14:53 | Outpatient (REF) | payer SELFPAY | END 2023-09-20 14:54 | disposition home or self-care (01) | LOC: HO.HAP 14:53 | PROVIDERS: Visit Provider Internal Medicine Medical Oncology | DX: Z13.89 Encounter for screening for other disorder (principal) ==

== ENCOUNTER 2023-09-21 16:24 | Outpatient (REF) | payer SELFPAY | END 2023-09-21 16:25 | disposition home or self-care (01) | LOC: HO.HAP 16:24 | PROVIDERS: Visit Provider Internal Medicine Medical Oncology | DX: Z46.1 Encounter for fitting and adjustment of hearing aid (principal); H90.3 Sensorineural hearing loss, bilateral | CPT/HCPCS: 92593 ==

== ENCOUNTER 2023-11-17 13:51 | Emergency (ER) | payer MEDICARE, SELFPAY ==
--- NOTE | ~2023-11-17 | XR_ITS ---
EXAMINATION: XR SHOULDER, LEFT CLINICAL INFORMATION: Trauma COMPARISON: None available. TECHNIQUE: Three views of the left shoulder. FINDINGS: There is an acute, comminuted fracture of the proximal humeral neck and metaphysis, including a transverse fracture plane. There is mild lateral and anterior displacement of the distal bone, with mild apex lateral angulation. There is surrounding soft tissue swelling. Anatomic glenohumeral joint articulation. Mild acromioclavicular arthritis. No abnormal soft tissue calcification. No displaced acute rib fractures are identified. XR/XR shoulder LT min 2V IMPRESSION: Acute, comminuted mildly displaced fracture of the proximal humeral neck and metaphysis, detailed above.
[2023-11-17 15:39] VITALS: BP 113/68; PULSE 70; RESP 16; TEMP 36.4; O2SAT 96; BMI 22.7
--- NOTE | 2023-11-17 15:42 | ED_ITS ---
HPI - General Adult General Chief complaint: Extremity Injury, Upper Stated complaint: L shoulder injury Time Seen by Provider: 11/17/23 17:06 Source: patient, RN notes reviewed and old records reviewed Mode of arrival: ambulatory Limitations: no limitations History of Present Illness HPI narrative: 78-year-old male presents for evaluation of left shoulder pain. patient reports that he fell yesterday while ice-skating he landed onto his left shoulder and did not strike his head complaints a 10/10 pain while trying to lift his left arm he states that he has no pain while at rest no other injuries he has reduced range of motion of the left shoulder Related Data Home Medications Medication Instructions Recorded Confirmed Colace 100 mg 12/14/22 Trintellix 10 mg 12/14/22 divalproex 250 mg tablet,delayed mg PO 12/14/22 12/14/22 release divalproex 250 mg tablet,delayed mg PO 12/14/22 12/14/22 release finasteride 5 mg tablet 1 tab PO DAILY 12/14/22 12/14/22 multivitamin 12/14/22 tamsulosin 0.4 mg capsule 1 cap PO BID 12/14/22 12/14/22 Previous Rx's Medication Instructions Recorded oxycodone 5 mg tablet 5 mg PO Q6H PRN pain #12 tabs 11/17/23 Allergies Allergy/AdvReac Type Severity Reaction Status Date / Time No Known Allergies Allergy Verified 11/17/23 15:39 Review of Systems Constitutional: Constitutional: Denies chills, Denies frequent falls and Denies headache(s) Eyes: Eyes: Denies blurry vision ENT: Denies headache(s) Cardiovascular: Cardiovascular: Denies chest pain and Denies dyspnea Respiratory: Respiratory: Denies cough and Denies dyspnea Musculoskeletal: Musculoskeletal: Denies back pain, Reports arthralgias, Reports joint swelling and Reports limited range of motion Integumentary/Breasts: Skin/Breast: Denies rash Neurologic: Denies frequent falls and Denies headache(s) [facility] Past Medical History Medical History (Updated 11/17/23 @ 17:22 by Domingo Regalado) Anemia BPH (benign prostatic hyperplasia) Depression CRI (chronic renal insufficiency) Surgical History (Updated 12/14/22 @ 13:22 by Elly Epps NP) H/O inguinal hernia repair H/O colonoscopy Social History Social History Patient Tobacco Use Status: Never used Tobacco Physical Exam ED Vital Signs: Vital Signs - 24 hr 11/17/23 15:39 Temperature 97.6 F Pulse Rate 70 Respiratory Rate 16 Blood Pressure 113/68 Pulse Oximetry 96 Oxygen Delivery Method Room Air BMI result Body Mass Index 22.7 Const General: healthy appearing, comfortable, no acute distress, alert and awake Nutritional Appearance: well nourished Orientation/consciousness: patient oriented x3 HENMT Head: Yes normocephalic and Yes atraumatic Eyes Eyelids: Yes eyelids normal Conjunctivae: conjunctivae normal Sclerae: sclerae normal Corneas: corneas normal Pupils: Equal, round and reactive pupils present EOM: EOMs intact bilaterally Neck Neck: Yes full ROM Resp Effort & Inspection: normal respiratory effort, able to speak in complete sentences and not labored GI Inspection: No distended Palpation (GI): Soft to palpation, not firm, nontender, no guarding and not rigid Skin General skin exam: no rashes or lesions noted and elasticity normal Neuro General: patient oriented x3 Cranial nerves: Yes Equal, round and reactive pupils present and Yes Bilaterally intact EOM present Cognition (Neuro): normal cognition Extrem Other: patient has ecchymosis of the ventral surface of the left upper arm. he is tender to the left proximal humerus on the anterior side. There is minimal left posterior shoulder tenderness. He is unable to raise left upper extremity above his shoulder. no left elbow or wrist tenderness. Radial pulses 2+ will Course Course Course Narrative: RME- 78-year-old male presents for evaluation of left shoulder injury after falling while ice skating yesterday. He is tender over the left bicipital groove. no tenderness over the clavicle. Plan for x-ray of the left shoulder. No head strike Medical Decision Making Medical Decision Making MDM Narrative: 78-year-old male presents for evaluation of a fall. He injured his left shoulder, will obtain x-rays Differential Diagnosis Differential Diagnoses: The differential diagnosis associated with the presentation includes shoulder sprain shoulder pain shoulder fracture Shoulder dislocation rotator cuff injury Consult Healthcare Provider Management of the patient was discussed with: Senior Database Programmer (Ivan Motta who recommends a sling and follow-up) Independent Interpretation I performed an independent interpretation of an: Plain X-Ray ( left proximal humerus fracture) Discharge Plan Discharge Clinical Impression: Closed fracture of left proximal humerus Patient Disposition: Home, Self-Care Instructions: Arm Fracture in Adults (ED) Additional Instructions: you have a fracture of your proximal humerus wear the sling at all times during the day but you may take it off at night use ibuprofen/ Tylenol for pain you may use oxycodone for more severe breakthrough pain. This may make you sleepy, do not drink alcohol or drive after taking if your pain is well controlled with Motrin and/or Tylenol you do not have to take any of the oxycodone Prescriptions: New oxycodone 5 mg tablet 5 mg PO Q6H PRN (Reason: pain) Qty: 12 0RF Rx Instructions: Partial Fill upon patient request. No Action divalproex 250 mg tablet,delayed release (DR/EC) PO divalproex 250 mg tablet,delayed release (DR/EC) PO tamsulosin 0.4 mg capsule 1 cap PO BID finasteride 5 mg tablet 1 tab PO DAILY Colace 100 mg Trintellix 10 mg multivitamin Referrals: Ivan Motta PA-C [Physician Ehs Manager] - ( left proximal humerus fracture)
== END 2023-11-17 17:46 | disposition home or self-care (01) ==
PROVIDERS: Emergency Provider Emergency Medicine; PCP Internal Medicine Medical Oncology
DX: S42.292A Other displaced fracture of upper end of left humerus, initial encounter for closed fracture (principal); M25.512 Pain in left shoulder; Y93.21 Activity, ice skating; Y93.9 Activity, unspecified; Y92.9 Unspecified place or not applicable; Y99.9 Unspecified external cause status
CPT/HCPCS: 73030; 99282; 99283

== ENCOUNTER 2023-11-26 08:39 | Outpatient (REF) | payer MEDICARE, SELFPAY ==
--- NOTE | ~2023-11-26 | XR_ITS ---
EXAMINATION: XR SHOULDER, LEFT CLINICAL INFORMATION: Pain in left shoulder COMPARISON: Left shoulder 11/17/2023 TECHNIQUE: Neutral AP and scapular Y views of the left shoulder. FINDINGS: Again noted is a comminuted fracture of the proximal humeral neck and metaphysis including a transverse fracture plane. There is widening of the lucent fracture cleft. There is no change in position or alignment of the fracture fragments. Interval decrease in soft tissue swelling. Anatomic glenohumeral joint articulation maintained. Minimal degenerative change of the acromioclavicular joint. No abnormal soft tissue calcifications. No displaced rib fractures are identified. XR/XR shoulder LT min 2V IMPRESSION: Comminuted fracture of the proximal left humerus without change in position or alignment of the fracture fragments.
== END 2023-11-26 08:40 | disposition home or self-care (01) ==
LOC: HO.HOSX 08:39
PROVIDERS: Visit Provider Physician Assistant
DX: S42.292A Other displaced fracture of upper end of left humerus, initial encounter for closed fracture (principal)
CPT/HCPCS: 73030; 99202

== ENCOUNTER 2023-11-26 14:12 | Outpatient (AMB) | payer MEDICARE, SELFPAY ==
[2023-11-26 14:22] VITALS: BMI 22.7
--- NOTE | 2023-11-26 14:22 | MHC.OFFVIS ---
Intake Vital Signs 11/26/23 14:22 Height 5 ft 10 in Weight 158 lb BMI 22.7 Intake Visit Reasons: FC-Closed fracture of left proximal humerus Intake Note: Todd holcomb 78 year old male presents today for an ER follow up of left proximal humerus fx, DOI 11/16/23. Patient reports while attempting to ice skate, he had a fall directly on his left shoulder. He presented to [facility] the following day where xrays were taken and placed in a sling. Currently pain is located primarily in his shoulder and will radiate up his neck. States bruising on his arm. Finds some relief with taking Tylenol and oxycodone 5 mg, as well as icing and heat. Allergies No Known Allergies Allergy (Verified 11/26/23 14:27) HPI FC-Closed fracture of left proximal humerus HPI Details 78-year-old male who presents to the office today for an ER follow-up of left shoulder injury s/p attempting to ice skate when he sustained a fall on his left shoulder, 11/16/23. He was seen at ED the next day where x-rays were performed and he was placed in a sling. He currently states he has pain in his shoulder which radiates up to his neck. He also c/o bruising on his arm. He finds mild relief with Tylenol, oxycodone, icing and heat. [facility] Medical History (Updated 11/26/23 @ 15:57 by Ivan Motta PA-C) Anemia BPH (benign prostatic hyperplasia) Depression CRI (chronic renal insufficiency) Surgical History H/O inguinal hernia repair H/O colonoscopy Social History (Updated 11/26/23 @ 14:30 by BING Chen) Patient Tobacco Use Status: Never used Tobacco Current occupational status: retired Current occupation: right hand dominant Review of Systems Const All systems reviewed & are unremarkable except as noted in HPI and below Physical Exam Vital Signs: BMI result Body Mass Index 22.7 Const General: cooperative and no acute distress Orientation/consciousness: patient oriented x3 Resp Effort & Inspection: normal respiratory effort and able to speak in complete sentences Cardio Peripheral pulses: Peripheral pulses 2+ throughout Neuro General: patient oriented x3 Extrem Other: Left shoulder: Normal to inspection. Diffuse Swelling and tenderness over the proximal humerus which extends down the arm. Anterior deltoid sensation intact. Elbow and wrist ROM intact. NVI. Office Procedures Fracture Care Fracture Billing Code: Fracture Billing Code Assessment & Plan Assessment & Plan (1) Closed fracture of left proximal humerus: Code(s): S42.A - Unspecified fracture of upper end of left humerus, initial encounter for closed fracture Qualifiers: Encounter type: initial encounter Fracture morphology: other fracture Fracture alignment: displaced Qualified Code(s): S42.292A - Other displaced fracture of upper end of left humerus, initial encounter for closed fracture Plan He will begin working on gentle ROM exercises at home such as pendulum and scapular activation. He will avoid any type of lifting, pushing, pulling or carrying greater than a cellphone and he will use the sling for safety and comfort. He will see us back in 4-6 weeks with new x-rays, sooner if needed. Orders: Orders XR shoulder LT min 2V Today M25.512 - Pain in left shoulder Patient Instructions: Scribed for Ivan Motta PA-C, by Jesus Manuel Bourgeois medical administrative, on 11/26/2023 at 2:15 PM EST. I, Ivan Motta PA-C, have personally reviewed and agree with the information entered by the scribe. Coding Level of Care Code New Pt Level 3 (97152) Diagnoses Other closed displaced fracture of proximal end of left humerus, initial encounter S42.292A Encounter type: initial encounter Fracture morphology: other fracture Fracture alignment: displaced CPT Codes Fracture Care - Fracture Billing Code: Fracture Billing Code ([id number])
== END 2023-11-26 15:24 | disposition home or self-care (01) ==
PROVIDERS: PCP Internal Medicine Medical Oncology; Visit Provider Physician Assistant
DX: S42.292A Other displaced fracture of upper end of left humerus, initial encounter for closed fracture (principal); V00.211A Fall from ice-skates, initial encounter
CPT/HCPCS: 99203

== ENCOUNTER 2023-12-13 11:10 | Outpatient (REF) | payer MEDICARE, SELFPAY ==
[2023-12-13 13:52] LABS: MANUAL DIFF FLAG NO
[2023-12-13 14:03] LABS: Basophils Percent Auto 0.5 % (0-2); Eosinophils Absolute Auto 0.1 X10*3/uL (0.0-0.4); Eosinophils Percent Auto 3.1 % (0-4); Hematocrit 32.7 % (42.0-52.0); Hemoglobin 10.9 g/dl (14.0-18.0); Imm Gran Abs Auto 0.02 X10*3/uL (0.00-0.03); Imm Gran Pct Auto 0.5 % (0.0-0.4); Lymphocytes Absolute Auto 1.3 X10*3/uL (1.2-4.9); Lymphocytes Percent Auto 31.3 % (20-40); Mean Corpuscular HGB Conc 33.3 g/dl (31.0-36.0); Mean Corpuscular Hemoglobin 31.8 pg (27.0-33.0); Mean Corpuscular Volume 95.3 fL (80.0-98.0); Mean Platelet Volume 11.2 fL (9.4-12.4); Monocytes Absolute Auto 0.6 X10*3/uL (0.1-1.2); Monocytes Percent Auto 15.3 % (2-11); Neutrophils Absolute Auto 2.1 x10*3/uL (2.0-8.3); Neutrophils Percent Auto 49.3 % (45-73); Platelet Count 193 X10*3/uL (160-400); Red Blood Count 3.43 X10*6/uL (4.60-5.80); Red Cell Distribution Width 14.6 % (11.0-16.0); White Blood Count 4.2 X10*3/uL (4.8-10.8)
[2023-12-13 14:11] LABS: Alanine Aminotransferase 15 U/L (0-40); Albumin Level 3.6 g/dL (3.5-5.0); Alkaline Phosphatase 100 U/L (39-117); Anion Gap 14 (12-20); Aspartate Amino Transferase 20 U/L (5-37); Bilirubin Total 0.3 mg/dL (0.0-1.0); Blood Urea Nitrogen 58 mg/dL (9-16); Calcium 9.2 mg/dL (8.4-10.2); Carbon Dioxide 24 mmol/L (22-29); Chloride 108 mmol/L (96-108); Estimated Glomerular Filt Rate 25; Glucose Random 99 mg/dL (60-115); Potassium 4.4 mmol/L (3.3-5.1); Sodium 142 mmol/L (135-145); Total Protein 6.6 g/dL (6.5-8.0)
[2023-12-13 14:35] LABS: Prostate Specific Antigen 4.02 ng/mL (<0.05-4.0)
[2023-12-13 14:37] LABS: Parathyroid Hormone Intact 67.4 pg/mL (8.7-77.1)
== END 2023-12-13 11:11 | disposition home or self-care (01) ==
LOC: HO.10HDL 11:10
PROVIDERS: Visit Provider Internal Medicine Medical Oncology
DX: Z12.5 Encounter for screening for malignant neoplasm of prostate (principal); N18.9 Chronic kidney disease, unspecified; D63.1 Anemia in chronic kidney disease; F33.41 Major depressive disorder, recurrent, in partial remission; N40.1 Benign prostatic hyperplasia with lower urinary tract symptoms
CPT/HCPCS: 36415; 80053; 83970; 84153; 85025

== ENCOUNTER 2023-12-31 09:43 | Outpatient (REF) | payer MEDICARE, SELFPAY ==
--- NOTE | ~2023-12-31 | XR_ITS ---
EXAMINATION: XR SHOULDER, LEFT CLINICAL INFORMATION: Pain in left shoulder COMPARISON: Left shoulder 11/26/2023, 11/17/2023 TECHNIQUE: AP external rotation, Grashey, scapular Y, and axillary views of the left shoulder. FINDINGS: There is no change in position or alignment of the comminuted fracture the proximal humeral neck and metaphysis including a transverse fracture plane. There has been exuberant callus formation about the fracture. Interval decrease in associated soft tissue swelling. Glenohumeral and acromioclavicular alignment is anatomic with normal glenohumeral joint space. Mild degenerative change of the acromioclavicular joint. No abnormal soft tissue calcifications. XR/XR shoulder LT min 2V IMPRESSION: Healing comminuted fracture of the proximal left humerus.
== END 2023-12-31 09:44 | disposition home or self-care (01) ==
LOC: HO.HOSX 09:43
PROVIDERS: Visit Provider Physician Assistant
DX: M25.512 Pain in left shoulder (principal)
CPT/HCPCS: 73030; 99212

== ENCOUNTER 2023-12-31 14:00 | Outpatient (AMB) | payer MEDICARE, SELFPAY ==
--- NOTE | 2023-12-31 14:23 | A.OFFVIS_ITS ---
Intake Vital Signs 12/31/23 14:31 Height 5 ft 10 in Weight 158 lb BMI 22.7 Intake Visit Reasons: OV-left pro humerus fx w rays Intake Note: Todd holcomb 78 year old male presents today for a follow up of left proximal humerus fx, DOI 11/16/23. Patient reports still having some dull pain however it os tolerable. When he is resting he has no pain. Patient would like to know if he is able to do his own at home exercies or if he needs to go to a [facility] for PT. Allergies No Known Allergies Allergy (Verified 12/31/23 14:26) HPI OV-left pro humerus fx w rays HPI Details 78 yo male returns to the office today l eft proximal humerus fracture. She states he has been doing well and increasing activity as tolerated. He has been working on his own home exercises and denies pain. [facility] Medical History (Updated 01/01/24 @ 12:59 by Ivan Motta PA-C) Anemia BPH (benign prostatic hyperplasia) Depression CRI (chronic renal insufficiency) Surgical History H/O inguinal hernia repair H/O colonoscopy Social History (Updated 12/31/23 @ 14:28 by Nidia Bishop) Alcohol intake: current Patient Tobacco Use Status: Never used Tobacco Current occupational status: retired Current occupation: right hand dominant Review of Systems Const All systems reviewed & are unremarkable except as noted in HPI and below Physical Exam Vital Signs: BMI result Body Mass Index 22.7 Extrem Other: Left shoulder without pain to palpation. He has full ROm in all planes without pain. He is able to activate RTC strength. NVI. Results Reviewed Results Reviewed: Xrays were obtained in the office today and personally reviewed by me of the left shoulder show callus formation with stable fracture pattern Assessment & Plan Assessment & Plan (1) Closed fracture of left proximal humerus: Code(s): S42.202A - Unspecified fracture of upper end of left humerus, initial encounter for closed fracture Qualifiers: Encounter type: subsequent encounter Fracture alignment: displaced Fracture morphology: other fracture Fracture healing: with routine healing Qualified Code(s): S42.292D - Other displaced fracture of upper end of left humerus, subsequent encounter for fracture with routine healing Plan: He will continue to increase activities as tolerated, I did educate him the fracture is not usually strong to support weight or impact until about 3 months post injury. He was given a HEP to work on at home. I will see him back in 6 weeks with xrays, sooner if needed. Orders: Orders XR shoulder LT min 2V 12/31/23 M25.512 - Pain in left shoulder Coding Level of Care Code Global (51345) Diagnoses Other closed displaced fracture of proximal end of left humerus with routine samara bhatti, subsequent encounter S42.292D Encounter type: subsequent encounter Fracture alignment: displaced Fracture morphology: other fracture Fracture healing: with routine healing
[2023-12-31 14:31] VITALS: BMI 22.7
== END 2023-12-31 14:50 | disposition home or self-care (01) ==
PROVIDERS: PCP Internal Medicine Medical Oncology; Visit Provider Physician Assistant
DX: S42.292D Other displaced fracture of upper end of left humerus, subsequent encounter for fracture with routine healing (principal)
CPT/HCPCS: 99213

== ENCOUNTER 2024-01-09 10:58 | Outpatient (REF) | payer MEDICARE, SELFPAY ==
--- NOTE | ~2024-01-09 | MM_ITS ---
EXAMINATION: BONE DENSITOMETRY CLINICAL INDICATION: Other specified disorders of bone density and structure. COMPARISON: This is the patient's baseline examination. TECHNIQUE: Using a [employer] DXA System (software version: 13.1) manufactured by [employer], dual-energy x-ray absorptiometry was performed of the lumbar spine and left hip. The images are of good technical quality. Summary results are attached. FINDINGS: LEFT FEMUR, NECK: BMD 0.783 g/cm2, Z-score -0.6, T-score -2.2, osteopenia. LEFT FEMUR, TOTAL: BMD 0.783 g/cm2, Z-score -1.1, T-score -2.2, osteopenia. AP SPINE L1-L4: BMD 1.200 g/cm2, Z-score 0.7, T-score -0.2, normal. IDENTIFIED RISK FACTORS: Kidney disease, history of fracture (adult). HISTORY OF FRACTURE: Humerus. MEDICATIONS: Multivitamin. MM/XR DEXA axial skeleton IMPRESSION: 1. DIAGNOSIS: Osteopenia based on the lowest T-score value of -2.2 in the femoral neck and total femur applying World Health Organization criteria. 2. 10-YEAR FRACTURE RISK PREDICTION, FRAX: Major osteoporotic fracture (clinical spine, forearm, hip or shoulder) 12.2%. Hip fracture 4.5%. 3. Treatment Recommendations: NOF guidelines recommend consideration for treatment in postmenopausal women and men age 50 and older presenting with the following: -A hip or vertebral (clinical or morphometric) fracture. -T-score less than or equal to -2.5 at the femoral neck or spine after appropriate evaluation to exclude secondary causes. -Low bone mass at the hip or spine and a 10-year fracture probability by FRAX of greater than or equal to 3% for hip fracture or greater than or equal to 20% for major osteoporotic fracture based on the [place] adapted WHO algorithm. 4. Other Recommendations: All treatment decisions require clinical judgment and consideration of individual patient factors, including patient preferences, comorbidities, previous drug use, risk factors not captured in the FRAX model (e.g. frailty, falls, vitamin D deficiency, increased bone turnover, interval significant decline in bone density) and possible under or overestimation of fracture risk by FRAX. Additional medical evaluation for secondary cause of low bone mineral density may be appropriate. FUTURE SCAN RECOMMENDATION: People with diagnosed cases of osteoporosis or at high risk for fracture should have regular bone mineral density tests. For patients eligible for Medicare, routine testing is allowed once every 2 years. The testing frequency can be increased to one year for patients who have rapidly progressing disease, those who are receiving or discontinuing medical therapy to restore bone mass, or have additional risk factors.
== END 2024-01-09 10:59 | disposition home or self-care (01) ==
LOC: HO.MAMMO 10:58
PROVIDERS: PCP Internal Medicine Medical Oncology; Visit Provider Internal Medicine Medical Oncology
DX: Z13.820 Encounter for screening for osteoporosis (principal); M85.80 Other specified disorders of bone density and structure, unspecified site; S62.90XA Unspecified fracture of unspecified hand, initial encounter for closed fracture; N28.9 Disorder of kidney and ureter, unspecified
CPT/HCPCS: 77080

== ENCOUNTER 2024-01-18 12:08 | Outpatient (REF) | payer MEDICARE, SELFPAY ==
[2024-01-18 13:21] LABS: MANUAL DIFF FLAG NO
[2024-01-18 13:35] LABS: Basophils Absolute Auto 0.1 X10*3/uL (0.0-0.2); Eosinophils Absolute Auto 0.1 X10*3/uL (0.0-0.4); Eosinophils Percent Auto 1.7 % (0-4); Hematocrit 35.2 % (42.0-52.0); Hemoglobin 11.8 g/dl (14.0-18.0); Imm Gran Abs Auto 0.02 X10*3/uL (0.00-0.03); Imm Gran Pct Auto 0.3 % (0.0-0.4); Lymphocytes Percent Auto 32.6 % (20-40); Mean Corpuscular HGB Conc 33.5 g/dl (31.0-36.0); Mean Corpuscular Hemoglobin 31.3 pg (27.0-33.0); Mean Corpuscular Volume 93.4 fL (80.0-98.0); Monocytes Absolute Auto 0.7 X10*3/uL (0.1-1.2); Monocytes Percent Auto 11.9 % (2-11); Neutrophils Absolute Auto 3.2 x10*3/uL (2.0-8.3); Neutrophils Percent Auto 52.5 % (45-73); Platelet Count 159 X10*3/uL (160-400); Red Blood Count 3.77 X10*6/uL (4.60-5.80); Red Cell Distribution Width 14.6 % (11.0-16.0); White Blood Count 6.1 X10*3/uL (4.8-10.8)
[2024-01-18 14:09] LABS: Alanine Aminotransferase 20 U/L (0-40); Alkaline Phosphatase 99 U/L (39-117); Anion Gap 14 (12-20); Aspartate Amino Transferase 21 U/L (5-37); Bilirubin Total 0.2 mg/dL (0.0-1.0); Blood Urea Nitrogen 58 mg/dL (9-16); Calcium 9.6 mg/dL (8.4-10.2); Carbon Dioxide 24 mmol/L (22-29); Chloride 109 mmol/L (96-108); Estimated Glomerular Filt Rate 29; Glucose Random 88 mg/dL (60-115); Potassium 5.4 mmol/L (3.3-5.1); Sodium 142 mmol/L (135-145); Total Protein 6.9 g/dL (6.5-8.0)
[2024-01-18 14:24] LABS: Parathyroid Hormone Intact 63.6 pg/mL (8.7-77.1)
[2024-01-18 14:26] LABS: Prostate Specific Antigen 4.01 ng/mL (<0.05-4.0)
== END 2024-01-18 12:09 | disposition home or self-care (01) ==
LOC: HO.10HDL 12:08
PROVIDERS: Visit Provider Internal Medicine Medical Oncology
DX: Z12.5 Encounter for screening for malignant neoplasm of prostate (principal); N18.9 Chronic kidney disease, unspecified; F33.41 Major depressive disorder, recurrent, in partial remission; N40.1 Benign prostatic hyperplasia with lower urinary tract symptoms; D63.1 Anemia in chronic kidney disease
CPT/HCPCS: 36415; 80053; 83970; 84153; 85025

== ENCOUNTER 2024-01-21 14:22 | Outpatient (AMB) | payer MEDICARE, SELFPAY ==
[2024-01-21 14:23] VITALS: BP 110/72; PULSE 70; O2SAT 99; BMI 22.7
--- NOTE | 2024-01-21 14:23 | HO.NEPHOV ---
HPI HPI Comments History of Present Illness Details 78 yr old man with a h/o [place] use in the past with CKD Here for semi annual follow up Baseline cr is 2.1 Bumped to 2.5 last month and returned to 2.15 No new issues Admits to eating cashews. Recent K is 5.4 PFSH Medical History Anemia BPH (benign prostatic hyperplasia) Depression CRI (chronic renal insufficiency) Surgical History H/O inguinal hernia repair H/O colonoscopy Family History (Updated 01/21/24 @ 14:26 by Isidra Bowers) Brother Chronic kidney disease Social History Alcohol intake: current Patient Tobacco Use Status: Never used Tobacco Current occupational status: retired Current occupation: right hand dominant Vital Signs 01/21/24 14:23 Height 5 ft 10 in Weight 158 lb BMI 22.7 BP 110/72 Blood Pressure Location Lt brachial Position Sitting Pulse 70 Pulse Source Pulse Oximeter Pulse Oximetry (%) 99 Oxygen Delivery Method Room Air Physical Exam Vital Signs: Last Vital Signs Pulse 70 01/21/24 14:23 BP 110/72 01/21/24 14:23 Pulse Ox 99 01/21/24 14:23 Oxygen Delivery Method Room Air 01/21/24 14:23 BMI result Body Mass Index 22.7 Const General: comfortable Nutritional Appearance: well nourished Orientation/consciousness: patient oriented x3 HEENT Head: No normal to inspection Mouth: moist mucous membranes Neck Neck: Yes supple and Yes no JVD Resp Auscultation: clear to auscultation bilaterally, no rales and rub present Cardio Jugular venous distension: no JVD Palpation: no palpable S3 and no palpable S4 Heart sounds: no rubs GI Palpation (GI): Soft to palpation and nontender Percussion: No Fluid wave present General: Yes no CVA tenderness Back/Spine/Pelvis Back: no CVA tenderness Skin General skin exam: no rashes or lesions noted Neuro General: patient oriented x3 Extrem General: Yes no pedal edema and No clubbing Assessment & Plan Assessment & Plan (1) CRI (chronic renal insufficiency): Code(s): N18.9 - Chronic kidney disease, unspecified Plan 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 in [facility] past Renal function is stable Continue to avoid nephrotoxins including NSAIDS Mild hyperkalemia Stay on low K diet Avoid cashews Mild stable anemia No indication for OLIVIER BP is acceptable Coding Level of Care Code Est Pt Level 4 (58249) Diagnoses CRI (chronic renal insufficiency) N18.9 Results Reviewed Nephrology Results: Hgb 11.8 g/dl (14.0-18.0) L 01/18/24 WBC 6.1 X10*3/uL (4.8-10.8) 01/18/24 Plt Count 159 X10*3/uL (160-400) L 01/18/24 Sodium 142 mmol/L (135-145) 01/18/24 Potassium 5.4 mmol/L (3.3-5.1) H 01/18/24 Chloride 109 mmol/L (96-108) H 01/18/24 Carbon Dioxide 24 mmol/L (22-29) 01/18/24 BUN 58 mg/dL (9-16) H 01/18/24 Creatinine 2.19 mg/dL (0.5-1.4) H 01/18/24 Calcium 9.6 mg/dL (8.4-10.2) 01/18/24 PTH Intact 63.6 pg/mL (8.7-77.1) 01/18/24
== END 2024-01-21 14:47 | disposition home or self-care (01) ==
PROVIDERS: PCP Internal Medicine Medical Oncology; Visit Provider Internal Medicine Hypertension Specialist
DX: N18.9 Chronic kidney disease, unspecified (principal)
CPT/HCPCS: 99214

== ENCOUNTER → 2024-01-21 14:22 | Outpatient (BNVA) | payer MEDICARE, SELFPAY | PROVIDERS: PCP Internal Medicine Medical Oncology; Visit Provider Internal Medicine Hypertension Specialist | DX: N18.9 Chronic kidney disease, unspecified (principal) | CPT/HCPCS: 99212 ==

== ENCOUNTER 2024-02-13 12:42 | Outpatient (REF) | payer MEDICARE, SELFPAY ==
--- NOTE | ~2024-02-13 | XR_ITS ---
EXAMINATION: XR SHOULDER, LEFT CLINICAL INFORMATION: Pain COMPARISON: 12/31/2023 TECHNIQUE: AP external rotation, Grashey, scapular Y, and axillary views of the left shoulder. FINDINGS: Extensive chronic post traumatic change to the proximal left humerus with an old angulated fracture with extensive callus formation noted. Left shoulder joint however is not dislocated. There is no evidence of an acute fracture, dislocation or destructive process. XR/XR shoulder LT min 2V IMPRESSION: Healed proximal left humeral injury. No acute findings.
== END 2024-02-13 12:43 | disposition home or self-care (01) ==
LOC: HO.HOSX 12:42
PROVIDERS: Visit Provider Physician Assistant
DX: M25.512 Pain in left shoulder (principal); S42.292D Other displaced fracture of upper end of left humerus, subsequent encounter for fracture with routine healing; X58.XXXD Exposure to other specified factors, subsequent encounter
CPT/HCPCS: 73030; 99212

== ENCOUNTER 2024-02-13 13:09 | Outpatient (AMB) | payer MEDICARE, SELFPAY ==
--- NOTE | 2024-02-13 13:31 | A.OFFVIS_ITS ---
Intake Vital Signs 02/13/24 13:33 Height 5 ft 10 in Weight 158 lb BMI 22.7 Intake Visit Reasons: OV - left proximal humerus fx, DOI 11/16/23 Intake Note: Todd is a 78 year old right hand dominant male presents today for a follow up of left proximal humerus fx, DOI 11/16/23. Patient reports doing his at home exercise provide him with relief. Allergies No Known Allergies Allergy (Verified 02/13/24 13:33) HPI OV - left proximal humerus fx, DOI 11/16/23 HPI Details 78-year-old right hand dominant male who returns to the office today for a follow-up of left shoulder fracture, 11/16/23. He states he has no pain and is doing well overall. He denies any weakness with lifting objects. He continues to do exercises at home with benefits. [facility] Medical History Anemia BPH (benign prostatic hyperplasia) Depression CRI (chronic renal insufficiency) Surgical History H/O inguinal hernia repair H/O colonoscopy Family History (Updated 01/21/24 @ 14:26 by Isidra Bowers) Brother Chronic kidney disease Social History Alcohol intake: current Patient Tobacco Use Status: Never used Tobacco Current occupational status: retired Current occupation: right hand dominant Review of Systems Const All systems reviewed & are unremarkable except as noted in HPI and below Physical Exam Vital Signs: BMI result Body Mass Index 22.7 Extrem Other: Left shoulder without pain to palpation. He has full ROm in all planes without pain. He is able to activate RTC strength. NVI. Results Reviewed Results Reviewed: Xrays were obtained in the office today and personally reviewed by me of the left shoulder show callus formation with stable fracture pattern Assessment & Plan Assessment & Plan (1) Closed fracture of left proximal humerus: Code(s): S42.202A - Unspecified fracture of upper end of left humerus, initial encounter for closed fracture Qualifiers: Encounter type: subsequent encounter Fracture alignment: displaced Fracture healing: with routine healing Fracture morphology: other fracture Qualified Code(s): S42.292D - Other displaced fracture of upper end of left humerus, subsequent encounter for fracture with routine healing Plan He will increase activity as tolerated as long as he is pain free. He will continue with his home exercises program and if he experiences any type of pain, discomfort, or concerns, he can contact the office, otherwise follow-up as needed. Orders: Orders XR shoulder LT min 2V Today M25.512 - Pain in left shoulder Patient Instructions: Scribed for Ivan Motta PA-C, by Jesus Manuel Bourgeois front office medical assistant, on 02/13/2024 at 1:00 PM EST. I, Ivan Motta PA-C, have personally reviewed and agree with the information entered by the scribe. Coding Level of Care Code Global (97213) Diagnoses Other closed displaced fracture of proximal end of left humerus with routine healing, subsequent encounter S42.292D Encounter type: subsequent encounter Fracture alignment: displaced Fracture healing: with routine healing Fracture morphology: other fracture
[2024-02-13 13:33] VITALS: BMI 22.7
== END 2024-02-13 13:59 | disposition home or self-care (01) ==
PROVIDERS: PCP Internal Medicine Medical Oncology; Visit Provider Physician Assistant
DX: S42.292D Other displaced fracture of upper end of left humerus, subsequent encounter for fracture with routine healing (principal)
CPT/HCPCS: 99213

== ENCOUNTER 2024-03-24 14:43 | Outpatient (REF) | payer SELFPAY ==
--- NOTE | 2024-03-25 08:00 | MHC.AU.HA3 ---
Hearing Instrument Follow-Up- Binaural Date of Visit: 03/24/24 Right Ear: Travis, Model, Color, Serial Number: Fabricio Galavizo P 90-R SN: [id number] Resistor Winder Repair Warranty: 11/15/2024 Resistor Winder Loss and Damage Warranty: 11/15/2024 [facility] Service Plan: None Battery Size: Rechargeable Blood Bank Order Control Clerk/Slim Tube: Earmold/Dome/CShell/SlimTip:Medium vented dome with retention tail Type of Wax Guard: CeruShield Dispensed By: ENT physician in [place] Date of Fitting: Programmed at [facility] on 02/10/2022 Left Ear: Travis, Model, Color, Serial Number: Fabricio Galavizo P 90-R SN: [id number] Resistor Winder Repair Warranty: 11/15/2024 Resistor Winder Loss and Damage Warranty: 11/15/2024 [facility] Service Plan: NONE Battery Size: Rechargeable Blood Bank Order Control Clerk/Slim Tube: Earmold/Dome/CShell/SlimTip: Medium vented dome with retention tail Type of Wax Guard: CeruShield Dispensed By: ENT physician in [place] Date of Fitting: Programmed at [facility] on 02/10/2022 Follow-Up Summary: Left hearing aid dropped off reporting not working. Blood Bank Order Control Clerk . Cleaned hearing aid. Replaced rim fire charger operator, dome, and retention tail. Listening check demonstrated hearing aid amplifying clearly. Recommendations: Hearing instrument follow-up or maintenance as needed. Please contact our clinic with any questions or concerns. Diagnosis Code(s): Primary Diagnosis: H90.3 Bilateral Sensorineural Hearing Loss Signature: Provider: Godfrey Saldivar, [facility]
== END 2024-03-24 14:44 | disposition home or self-care (01) ==
LOC: HO.HAP 14:43
PROVIDERS: Visit Provider Internal Medicine Medical Oncology
DX: Z46.1 Encounter for fitting and adjustment of hearing aid (principal); H90.3 Sensorineural hearing loss, bilateral
CPT/HCPCS: 92593

== ENCOUNTER 2024-04-28 10:42 | Outpatient (REF) | payer MEDICARE, SELFPAY ==
[2024-04-28 13:13] LABS: MANUAL DIFF FLAG NO
[2024-04-28 13:15] LABS: Basophils Absolute Auto 0.1 X10*3/uL (0.0-0.2); Basophils Percent Auto 1.2 % (0-2); Eosinophils Absolute Auto 0.2 X10*3/uL (0.0-0.4); Hematocrit 36.2 % (42.0-52.0); Imm Gran Abs Auto 0.02 X10*3/uL (0.00-0.03); Imm Gran Pct Auto 0.4 % (0.0-0.4); Lymphocytes Absolute Auto 1.5 X10*3/uL (1.2-4.9); Lymphocytes Percent Auto 26.2 % (20-40); Mean Corpuscular HGB Conc 33.1 g/dl (31.0-36.0); Mean Corpuscular Hemoglobin 31.5 pg (27.0-33.0); Mean Platelet Volume 11.1 fL (9.4-12.4); Monocytes Absolute Auto 0.6 X10*3/uL (0.1-1.2); Monocytes Percent Auto 10.9 % (2-11); Neutrophils Absolute Auto 3.3 x10*3/uL (2.0-8.3); Neutrophils Percent Auto 58.3 % (45-73); Platelet Count 180 X10*3/uL (160-400); Red Blood Count 3.81 X10*6/uL (4.60-5.80); Red Cell Distribution Width 14.7 % (11.0-16.0); White Blood Count 5.6 X10*3/uL (4.8-10.8)
[2024-04-28 13:38] LABS: Anion Gap 17 (12-20); Blood Urea Nitrogen 49 mg/dL (9-16); Calcium 9.5 mg/dL (8.4-10.2); Carbon Dioxide 22 mmol/L (22-29); Chloride 110 mmol/L (96-108); Estimated Glomerular Filt Rate 27; Potassium 5.1 mmol/L (3.3-5.1); Sodium 144 mmol/L (135-145)
[2024-04-28 13:43] LABS: Alanine Aminotransferase 26 U/L (0-40); Albumin Level 3.9 g/dL (3.5-5.0); Alkaline Phosphatase 74 U/L (39-117); Anion Gap 13 (12-20); Aspartate Amino Transferase 26 U/L (5-37); Bilirubin Total 0.4 mg/dL (0.0-1.0); Blood Urea Nitrogen 47 mg/dL (9-16); Calcium 9.6 mg/dL (8.4-10.2); Carbon Dioxide 22 mmol/L (22-29); Chloride 111 mmol/L (96-108); Estimated Glomerular Filt Rate 27; Glucose Random 88 mg/dL (60-115); Potassium 4.9 mmol/L (3.3-5.1); Sodium 141 mmol/L (135-145); Total Protein 6.9 g/dL (6.5-8.0)
[2024-04-30 11:09] LABS: Percent Free Prostate Spec Ag 38 % (calc) (>25)
== END 2024-04-28 10:43 | disposition home or self-care (01) ==
LOC: HO.10HDL 10:42
PROVIDERS: Referring Provider Internal Medicine Medical Oncology; Visit Provider Internal Medicine Hypertension Specialist
DX: N18.9 Chronic kidney disease, unspecified (principal)
CPT/HCPCS: 36415; 80051; 80053; 82310; 82565; 84154; 84520; 85025

== ENCOUNTER 2024-05-09 10:33 | Outpatient (REF) | payer MEDICARE, SELFPAY | END 2024-05-09 10:34 | disposition home or self-care (01) | LOC: HO.SH 10:33 | PROVIDERS: Visit Provider Internal Medicine Medical Oncology | DX: Z01.118 Encounter for examination of ears and hearing with other abnormal findings (principal); H90.3 Sensorineural hearing loss, bilateral | CPT/HCPCS: 92557 ==

== ENCOUNTER 2024-05-09 11:41 | Outpatient (REF) | payer SELFPAY ==
--- NOTE | 2024-05-09 13:10 | MHC.AU.HA3 ---
Hearing Instrument Follow-Up- Binaural Date of Visit: 05/09/24 Right Ear: Travis, Model, Color, Serial Number: Fabricio Galavizo P 90-R SN: [id number] Carburetor Expert Repair Warranty: 11/15/2024 Carburetor Expert Loss and Damage Warranty: 11/15/2024 [facility] Service Plan: None Battery Size: Rechargeable Air Pollution Control Engineer/Slim Tube: 2M Earmold/Dome/CShell/SlimTip:Medium vented dome with retention tail Type of Wax Guard: CeruStop Dispensed By: ENT physician in [place] Date of Fitting: [place] [facility] [place] Left Ear: Travis, Model, Color, Serial Number: Fabricio Galavizo P 90-R SN: [id number] Carburetor Expert Repair Warranty: 11/15/2024 Carburetor Expert Loss and Damage Warranty: 11/15/2024 [facility] Service Plan: None Battery Size: Rechargeable Air Pollution Control Engineer/Slim Tube: 2M Earmold/Dome/CShell/SlimTip: Medium vented dome with retention tail Type of Wax Guard: CeruStop Dispensed By: ENT physician in [place] Date of Fitting: Program[place] [facility] [place] Follow-Up Summary: Routine hearing aid maintenance and reprogramming following updated hearing test. Recently noticing difficulty with clarity of speech. Cleaned both hearing aids. Changed to 5 receivers (with CeruStop) due to continued difficulty changing CeruShields. Provided package of CeruStops and instructed on how to change. Replaced domes and retention tails. Ran through [employer]. Updated firmware. Reprogrammed using real ear measures, as not originally performed when first fit. Noted improvement in sound quality at real ear settings. Recommendations: Hearing instrument follow-up or maintenance as needed. Please contact our clinic with any questions or concerns. Diagnosis Code(s): Primary Diagnosis: H90.3 Bilateral Sensorineural Hearing Loss Signature: Provider: Godfrey Saldivar, [facility]3]-A
== END 2024-05-09 11:42 | disposition home or self-care (01) ==
LOC: HO.HAP 11:41
PROVIDERS: Visit Provider Internal Medicine Medical Oncology
DX: Z46.1 Encounter for fitting and adjustment of hearing aid (principal); H90.3 Sensorineural hearing loss, bilateral
CPT/HCPCS: 92593

== ENCOUNTER 2024-06-25 12:47 | Outpatient (REF) | payer MEDICARE, SELFPAY ==
[2024-06-27 04:28] LABS: Free Prostate Spec Ag 3.5 ng/mL; Percent Free Prostate Spec Ag NOT CALCULATED % (calc) (>25); Prostate Specific Ag Total 10.3 ng/mL (< OR = 4.0)
== END 2024-06-25 12:48 | disposition home or self-care (01) ==
LOC: HO.10HDL 12:47
PROVIDERS: Visit Provider Internal Medicine Medical Oncology
DX: Z12.5 Encounter for screening for malignant neoplasm of prostate (principal); N40.1 Benign prostatic hyperplasia with lower urinary tract symptoms; R97.20 Elevated prostate specific antigen [PSA]
CPT/HCPCS: 36415; 84154

== ENCOUNTER 2024-06-30 12:57 | Outpatient (REF) | payer MEDICARE, SELFPAY ==
[2024-07-01 10:58] LABS: Free Prostate Spec Ag 3.2 ng/mL; Percent Free Prostate Spec Ag 35 % (calc) (>25); Prostate Specific Ag Total 9.1 ng/mL (< OR = 4.0)
== END 2024-06-30 12:58 | disposition home or self-care (01) ==
LOC: HO.10HDL 12:57
PROVIDERS: Visit Provider Internal Medicine Medical Oncology
DX: Z12.5 Encounter for screening for malignant neoplasm of prostate (principal); N40.1 Benign prostatic hyperplasia with lower urinary tract symptoms
CPT/HCPCS: 36415; 84154

== ENCOUNTER 2024-07-25 14:22 | Outpatient (REF) | payer SELFPAY | END 2024-07-25 14:23 | disposition home or self-care (01) | LOC: HO.HAP 14:22 | PROVIDERS: Visit Provider Internal Medicine Medical Oncology | DX: Z13.89 Encounter for screening for other disorder (principal) ==

== ENCOUNTER 2024-07-31 11:23 | Outpatient (AMB) | payer MEDICARE, SELFPAY ==
[2024-07-31 11:21] VITALS: BP 102/70; PULSE 68; O2SAT 99; BMI 22.8
--- NOTE | 2024-07-31 11:21 | HO.NEPHOV_ITS ---
Vital Signs 07/31/24 11:21 Height 5 ft 10 in Weight 159 lb BMI 22.8 BP 102/70 Blood Pressure Location Rt brachial Position Sitting Pulse 68 Pulse Source Pulse Oximeter Pulse Oximetry (%) 99 Oxygen Delivery Method Room Air Intake Visit Reasons: CRI/ conf Blending Technician Required: No Accompanied by: Self / Same As Patient Allergies No Known Allergies Allergy (Verified 07/31/24 11:24) Medication List - Last Reconciled 07/31/24 by Sam Killian MD [Colace 100 mg] divalproex ER 1,000 mg PO BEDTIME lamotrigine 75 mg PO DAILY [multivitamin ] pramipexole 0.25 mg PO QPM tamsulosin 0.4 mg PO .nightly vortioxetine (Trintellix) 10 mg PO DAILY HPI Comments Details: 78 yr old man with a h/o [place] use in the past with CKD Here for semi annual follow up Baseline cr is 2.1 Bumped to 2.5 last month and returned to 2.15 No new issues REcent elevation in PSA Being followed by urology- Had MRI [facility] Medical History Anemia BPH (benign prostatic hyperplasia) Depression CRI (chronic renal insufficiency) Surgical History H/O inguinal hernia repair H/O colonoscopy Family History Brother Chronic kidney disease Social History Alcohol intake: current Patient Tobacco Use Status: Never used Tobacco Current occupational status: retired Current occupation: right hand dominant Physical Exam Vital Signs: Last Vital Signs Pulse 68 07/31/24 11:21 BP 102/70 07/31/24 11:21 Pulse Ox 99 07/31/24 11:21 Oxygen Delivery Method Room Air 07/31/24 11:21 BMI result Body Mass Index 22.8 Const General: comfortable; No acute distress Orientation/consciousness: patient oriented x3 Eyes General: appearance normal, both eyes and all related structures Visual [place]: normal visual [place] by confrontation Neck Neck: Yes supple and Yes no JVD Resp Effort & Inspection: normal respiratory effort and respiratory effort not decreased Auscultation: rhonchi Cardio Palpation: no palpable S3 and no palpable S4 Heart sounds: no rubs GI Inspection: Yes normal to inspection Palpation (GI): Soft to palpation Percussion: Yes normal to percussion Auscultation: normal bowel sounds General: Yes no CVA tenderness Back/Spine/Pelvis Back: no CVA tenderness Skin General skin exam: no petechiae and no purpura Neuro General: patient oriented x3 and no focal motor deficits Extrem General: No clubbing and No edema Results Reviewed Nephrology Results: Hgb 12.0 g/dl (14.0-18.0) L 04/28/24 WBC 5.6 X10*3/uL (4.8-10.8) 04/28/24 Plt Count 180 X10*3/uL (160-400) 04/28/24 Sodium 141 mmol/L (135-145) 04/28/24 Potassium 4.9 mmol/L (3.3-5.1) 04/28/24 Chloride 111 mmol/L (96-108) H 04/28/24 Carbon Dioxide 22 mmol/L (22-29) 04/28/24 BUN 47 mg/dL (9-16) H 04/28/24 Creatinine 2.39 mg/dL (0.5-1.4) H 04/28/24 Calcium 9.6 mg/dL (8.4-10.2) 04/28/24 PTH Intact 63.6 pg/mL (8.7-77.1) 01/18/24 Assessment & Plan Assessment & Plan (1) CRI (chronic renal insufficiency): Code(s): N18.9 - Chronic kidney disease, unspecified Category: Medical (2) Renal cyst: Code(s): N28.1 - Cyst of kidney, acquired Category: Medical Plan 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
== END 2024-07-31 11:47 | disposition home or self-care (01) ==
PROVIDERS: PCP Internal Medicine Medical Oncology; Visit Provider Internal Medicine Hypertension Specialist
DX: N18.9 Chronic kidney disease, unspecified (principal); N28.1 Cyst of kidney, acquired
CPT/HCPCS: 99214

== ENCOUNTER → 2024-07-31 11:23 | Outpatient (BNVA) | payer MEDICARE, SELFPAY | PROVIDERS: PCP Internal Medicine Medical Oncology; Visit Provider Internal Medicine Hypertension Specialist | DX: N18.9 Chronic kidney disease, unspecified (principal); N28.1 Cyst of kidney, acquired | CPT/HCPCS: 99212 ==

== ENCOUNTER 2024-07-31 12:22 | Outpatient (REF) | payer SELFPAY | END 2024-07-31 12:23 | disposition home or self-care (01) | LOC: HO.HAP 12:22 | PROVIDERS: Visit Provider Internal Medicine Medical Oncology | DX: Z46.1 Encounter for fitting and adjustment of hearing aid (principal) | CPT/HCPCS: V5267 ==

== ENCOUNTER 2024-08-05 10:39 | Outpatient (REF) | payer MEDICARE, SELFPAY ==
--- NOTE | ~2024-08-05 | US_ITS ---
EXAMINATION: US RETROPERITONEAL LIMITED (RENAL ONLY) CLINICAL INFORMATION: Chronic kidney disease, unspecified. COMPARISON: Renal ultrasound 04/24/2019 and 07/08/2018. TECHNIQUE: Real-time imaging of the kidneys. FINDINGS: RIGHT KIDNEY: 10.3 x 5.0 x 5.3 cm (SAG x AP x TRV). The kidney is normal in size and contour. Renal cortical thickness is normal. No renal calculi or hydronephrosis. Benign-appearing cysts measuring up to 3.2 cm. Followup imaging is not routinely recommended for benign appearing cysts.. LEFT KIDNEY: 10.7 x 5.5 x 5.1 cm (SAG x AP x TRV). The kidney is normal in size and contour. Renal cortical thickness is normal. No renal calculi or hydronephrosis. Benign-appearing cysts measuring up to 4.3 cm. Followup imaging is not routinely recommended for benign appearing cysts.. ADDITIONAL FINDINGS: Incidentally seen right hepatic lobe 2.3 cm cyst. US/US renal BI IMPRESSION: Bilateral benign-appearing renal cysts. Followup imaging is not routinely recommended for benign appearing cysts. Electronically signed by: Magda Montiel MD 08/19/2024 02:36 PM EDT
== END 2024-08-05 10:40 | disposition home or self-care (01) ==
LOC: HO.US 10:39
PROVIDERS: Visit Provider Internal Medicine Hypertension Specialist
DX: N18.9 Chronic kidney disease, unspecified (principal); N28.1 Cyst of kidney, acquired
CPT/HCPCS: 76775

== ENCOUNTER 2024-08-29 12:27 | Outpatient (REF) | payer MEDICARE, SELFPAY ==
[2024-08-29 13:22] LABS: MANUAL DIFF FLAG NO
[2024-08-29 13:31] LABS: Basophils Absolute Auto 0.1 X10*3/uL (0.0-0.2); Basophils Percent Auto 1.3 % (0-2); Eosinophils Absolute Auto 0.1 X10*3/uL (0.0-0.4); Eosinophils Percent Auto 2.6 % (0-4); Hematocrit 35.5 % (42.0-52.0); Hemoglobin 11.8 g/dl (14.0-18.0); Imm Gran Abs Auto 0.02 X10*3/uL (0.00-0.03); Imm Gran Pct Auto 0.4 % (0.0-0.4); Lymphocytes Absolute Auto 1.5 X10*3/uL (1.2-4.9); Lymphocytes Percent Auto 33.4 % (20-40); Mean Corpuscular HGB Conc 33.2 g/dl (31.0-36.0); Mean Corpuscular Hemoglobin 31.6 pg (27.0-33.0); Mean Corpuscular Volume 94.9 fL (80.0-98.0); Mean Platelet Volume 10.6 fL (9.4-12.4); Monocytes Absolute Auto 0.5 X10*3/uL (0.1-1.2); Monocytes Percent Auto 11.6 % (2-11); Neutrophils Absolute Auto 2.3 x10*3/uL (2.0-8.3); Neutrophils Percent Auto 50.7 % (45-73); Platelet Count 168 X10*3/uL (160-400); Red Blood Count 3.74 X10*6/uL (4.60-5.80); Red Cell Distribution Width 14.6 % (11.0-16.0); White Blood Count 4.6 X10*3/uL (4.8-10.8)
[2024-08-29 14:10] LABS: Alanine Aminotransferase 27 U/L (0-40); Albumin Level 3.9 g/dL (3.5-5.0); Alkaline Phosphatase 64 U/L (39-117); Anion Gap 9 (12-20); Aspartate Amino Transferase 24 U/L (5-37); Bilirubin Total 0.4 mg/dL (0.0-1.0); Blood Urea Nitrogen 56 mg/dL (9-16); Calcium 9.6 mg/dL (8.4-10.2); Carbon Dioxide 26 mmol/L (22-29); Chloride 110 mmol/L (96-108); Cholesterol 206 mg/dL (<200); Estimated Glomerular Filt Rate 25; Glucose Fasting 93 mg/dL (60-99); HDL Cholesterol 76 mg/dL (>40); LDL Cholesterol Calculated 115 mg/dL (<100); Potassium 4.3 mmol/L (3.3-5.1); Sodium 141 mmol/L (135-145); Total Protein 6.6 g/dL (6.5-8.0); Triglycerides 79 mg/dL (<150)
[2024-09-01 13:27] LABS: Free Prostate Spec Ag 3.7 ng/mL; Percent Free Prostate Spec Ag NOT CALCULATED % (calc) (>25); Prostate Specific Ag Total 10.9 ng/mL (< OR = 4.0)
== END 2024-08-29 12:28 | disposition home or self-care (01) ==
LOC: HO.10HDL 12:27
PROVIDERS: Visit Provider Internal Medicine Medical Oncology
DX: N18.9 Chronic kidney disease, unspecified (principal); N40.1 Benign prostatic hyperplasia with lower urinary tract symptoms; E78.5 Hyperlipidemia, unspecified; R97.20 Elevated prostate specific antigen [PSA]; Z86.2 Personal history of diseases of the blood and blood-forming organs and certain disorders involving the immune mechanism
CPT/HCPCS: 36415; 80053; 80061; 84154; 85025

== ENCOUNTER 2024-09-11 16:07 | Outpatient (REF) | payer SELFPAY | END 2024-09-11 16:08 | disposition home or self-care (01) | LOC: HO.HAP 16:07 | PROVIDERS: Visit Provider Internal Medicine Medical Oncology | DX: Z46.1 Encounter for fitting and adjustment of hearing aid (principal); H90.3 Sensorineural hearing loss, bilateral | CPT/HCPCS: 92593; V5267 ==

== ENCOUNTER 2024-11-03 12:42 | Outpatient (REF) | payer SELFPAY ==
--- OUTSIDE RECORDS SUMMARY | 2024-11-03 12:45 | XMS_ITS ---
Author Organization Ari Hatch III, MD Address [address] [place] [address] Care Team Providers Care Cyber Instructor Name Role Phone Ari Hatch Primary Care Provider [phone] Allergies Allergen (clinical drug ingredient) Drug/Non Drug [...] Date Provider Diagnosis Ari Hatch III, MD [address] [place] [address] [place] [address] 09/02/2024 Ari Hatch Anemia in chronic ki [...] Reason: Ro utine check-up Provider Name:Ari Hatch, 01/30/2025 02:00:00 PM, [address] [place] [address] [place], [place], [address], Progress Notes * Todd ZAVALADOB: [birth year] (79 yo M)Acc No.[id number]:09/02/2024 Progress Notes Patient:?Todd ZAVALA Provider:?Ari Hatch MD :1945???Age:79 Y???Sex:Male Darvin e:09/02/2024 Address:[address] [place] [address], [id number] Subjective: * Chief Complaints: * ???CKDDepressionHearing loss Benign prostatic hypertrophyElevated PSAAnemia * HPI: ???COVID-19 Screening:?Questions?Have you experienced fever, chills, cough, sore throat, shortness of breath, difficulty breathing, muscle aches, loss of taste or smell??No ?Have you been exposed to the virus within the last 10 days??No ?Have you travelled internationally in the last 10 days??No ?Have you been exposed to COVID-19 in the past??Yes ???:?The patient, a 79-year-old male, reported that his [...] experiencing some contraction in his hands. * ROS:?General/Constitutional:?pain?only normal aches and pains.?Chills?denies.?Fatigue?admits.?Fever?denies.?ENT:?Decreased hearing?in both ears.?Respiratory:?Cough?denies.?Cardiovascular:?Chest pain with exertion?denies.?Dyspnea on exertion?denies.?Shortness of breath?denies.?Gastrointestinal:?Constipation?occasional.?Decreased appetite?denies.?Diarrhea?denies.?Heartburn?denies.?Nausea?denies.?Rectal bleeding?denies.?Vomiting?denies.?Hematology:?bruising?denies.?petechiae?denies.?Swollen glands?none have been noted.?Genitourinary:?Frequent urination?denies.?Musculoskeletal:?Muscle aches?denies.?Painful joints?denies.?Sciatica?denies.?Weakness?denies.?Skin:?Itching?denies.?Rash?denies.?Skin lesion(s)?denies.?Neurologic:?Difficulty speaking?denies.?Dizziness?denies.?Headache?denies.?Low back pain?denies.?Psychiatric:?Depressed mood?which is mild.? * Medical History:? * Surgical History:?inguinal h ernia repair left 2018inguinal hernia repair right 1995dental surgery 2018colonoscopy Dr. harry No history * Hospitalization/Major Diagno stic Procedure:?[facility] 03/2018No history * Family History:?Father: dece ased 38 yrs, Congestive heart failure, Polio, diagnosed with CVD.?Mother: 93 yrs, Stroke, atrial fibrillation, Dementia, diagnosed with CVD.?Siblings: , Brother have A-fib. Osteoarthritis. Hx of substance abuse, COPD, Lung nodule..?Maternal uncle: artial fibrillation, stroke.?Maternal aunt: artial fibrillation, stroke.?1 brother(s) , 1 sister(s) . 2 daughter(s) - healthy. .? His sister have Hypertension. His brother , suffers from obesity and diabetes mellitus, a fibrillation, COPD, Alcoholism. He recently had a total knee replacement. His brother has a history of mental illness as well. His sister, Siobhan is a retired emr analyst and horse show judge. She has hypertension and she is overweight, Thyroid nodule, Benign gland. Uncle passed of throat cancer, Bladder cancer. * Social History:?Tobacco Use:?Tobacco Use/Smoking?Patient is a?nonsmoker ?Additional Findings: Tobacco Non-User?Aggressive non-smoker ???He was born in [facility]. He has been to [place] for several years. It is his third marriage. He has 2 children, Alanna and Fabiola who are healthy and well. He has 2 grandchildren. * Medications:?TakingMultivita min - Tablet 1 tablet Orally Once a [...] reviewed and reconciled with the patient * Allergies:?Abilify: Side Eff ectsno[Allergies Verified] Objective: * Vitals:?Ht: 69, Wt:159, BMI: 23.48, BP:95/61, HR:72, Temp:98.1, Wt-k.12. * ???Past Orders: Lab:Complete Blood Count Aut o Diff * Collection Date 08/29/2024 04/28/2024 01/18/2024 Collection Time 12:40 PM 10:47 AM 12:20 PM Order Date 08/29/2024 04/28/2024 01/18/2024 White Blood Count 4.6?L (Ref Range: 4.8-10.8 X10*3/uL) 5.6 (Ref Range: 4.8-10.8 X10*3/uL) 6.1 (Ref Range: 4.8-10.8 X10*3/uL) Red Blood Count 3.74?L (Ref Range: 4.60-5.80 X10*6/uL) 3.81?L (Ref Range: 4.60-5.80 X10*6/uL) 3.77?L (Ref Range: 4.60-5.80 X10*6/uL) Hemoglobin 11.8?L (Ref Range: 14.0-18.0 g/dl) 12.0?L (Ref Range: 14.0-18.0 g/dl) 11.8?L (Ref Range: 14.0-18.0 g/dl) Hematocrit 35.5?L (Ref Range: 42.0-52.0 %) 36.2?L (Ref Range: 42.0-52.0 %) 35.2?L (Ref Range: 42.0-52.0 %) Mean Corpuscular Volume [...] 160-400 X10*3/uL) 180 (Ref Range: 160-400 X10*3/uL) 159?L (Ref Range: 160-400 X10*3/uL) Mean Platelet Volume [...] (Ref Range: 20-40 %) Monocytes Percent Auto 11.6?H (Ref Range: 2-11 %) 10.9 (Ref Range: 2-11 %) 11.9?H (Ref Range: 2-11 %) Eosinophils Percent Auto [...] X10*3/uL) 0.000 (Ref Range: 0.0-0.012 X10*3/uL) * Lab:Jada Grfifith * Collection Date 08/29/2024 05/09/2023 01/10/2023 Collection [...] Total Protein 6.6 (Ref Range: 6.5-8.0 g/dL) 6.2?L (Ref Range: 6.5-8.0 g/dL) 6.3?L (Ref Range: 6.5-8.0 g/dL) Albumin Level 3.9 (Ref Range: 3.5-5.0 g/dL) 3.7 (Ref Range: 3.5-5.0 g/dL) 3.9 (Ref Range: 3.5-5.0 g/dL) Alkaline Phosphatase 64 (Ref Range: 39-117 U/L) 63 (Ref Range: 39-117 U/L) 53 (Ref Range: 39-117 U/L) Potassium 4.3 (Ref Range: 3.3-5.1 mmol/L) 4.9 (Ref Range: 3.3-5.1 mmol/L) 5.7?H (Ref Range: 3.3-5.1 mmol/L) Chloride 110?H (Ref Range: 96-108 mmol/L) 111?H (Ref Range: 96-108 mmol/L) 108 (Ref Range: 96-108 mmol/L) Carbon Dioxide 26 (Ref Range: 22-29 mmol/L) 23 (Ref Range: 22-29 mmol/L) 28 (Ref Range: 22-29 mmol/L) Anion Gap 9?L (Ref Range: 12-20) 13 (Ref Range: 12-20) 13 (Ref Range: 12-20) Blood Urea Nitrogen 56?H (Ref Range: 9-16 mg/dL) 39?H (Ref Range: 9-16 mg/dL) 36?H (Ref Range: 9-16 mg/dL) Creatinine 2.48?H (Ref Range: 0.5-1.4 mg/dL) 2.25?H (Ref Range: 0.5-1.4 mg/dL) 2.24?H (Ref Range: 0.5-1.4 mg/dL) Estimated Glomerular Filt [...] Range: mg/dL) 73 (Ref Range: mg/dL) Cholesterol 206?H (Ref Range: <200 mg/dL) 199 (Ref Range: mg/dL) 215 (Ref Range: mg/dL) LDL Cholesterol Calculated 115?H (Ref Range: <100 mg/dL) 117 (Ref Range: mg/dl) 133 (Ref Range: mg/dl) HDL Cholesterol 76 (Ref Range: >40 mg/dL) 66 (Ref Range: mg/dL) 68 (Ref Range: mg/dL) * Lab:PSA Free and Total * Collection Date 08/29/2024 06/30/2024 06/25/2024 Collection Time 12:40 PM 12:59 PM 12:52 PM Order Date 08/29/2024 06/30/2024 06/25/2024 Prostate Specific Ag Total 10.9?A (Ref Range: < OR = 4.0 ng/mL) 9.1?A (Ref Range: < OR = 4.0 ng/mL) 10.3?A (Ref Range: < OR = 4.0 ng/mL) Percent Free Prostate Spec Ag NOT CALCULATED (Ref Range: >25 % (calc)) 35 (Ref Range: >25 % (calc)) NOT CALCULATED (Ref Range: >25 % (calc)) Free Prostate Spec Ag 3.7 (Ref Range: ng/mL) 3.2 (Ref Range: ng/mL) 3.5 (Ref Range: ng/mL) ???Imaging:US renal BI (Order Date - 08/05/2024) (Performed Date - 08/05/2024) * Examination: ???General Examination: ?GENERAL APPEARANCE:?pleasant, well nourished, well developed, in no acute distress, calm and relaxed, overweight, man.?HEAD:?atraumatic, normocephalic.?EYES:?eomi, perrla, anicteric, conjugate.?EARS:?normal, Wearing hearing aids.?NOSE:?septum intact.?ORAL CAVITY:?normal, unremarkable.?NECK/THYROID:?no jugular venous distention, no carotid bruit, thyroid normal.?LYMPH NODES:?no enlarged lymph nodes,spleen normal.?SKIN:?no suspicious lesions, anicteric.?HEART:?no clicks, gallops, murmurs, or rubs, regular rhythm, S1, S2 normal, no s3, or vascular bruits.?LUNGS:?clear to auscultation .?BREASTS:??no masses palpable bilaterally.?ABDOMEN:?bowel sounds normal, no ascites, no organomegaly, no mass.?RECTAL EXAM:?not examined.?MUSCULOSKELETAL:?extremities unremarkable, no clubbing, cyanosis or edema, Mild Dupuytren's contracture left palm.?PERIPHERAL PULSES:?normal.?NEUROLOGIC:?alert and oriented, cranial nerves 2-12 grossly intact, deep tendon reflexes 2+ symmetrical, motor strength normal upper and lower extremities, sensory exam intact.?PSYCH:?alert, oriented.? Assessment: * Assessment: 1.?Chronic kidney disease, u nspecified CKD stage - N18.9 (Primary)???Notes :His current BUN is 56 with a creatinine of 2.48.? His GFR is slightly diminished.? He remains under the care of nephrology.???2.?Anemia in chronic kidney disease - D63.1???Notes :He has a mild normochromic normocytic anemia of chronic renal disease.? Treatment is not necessary at this time.???3.?Dupuytren's contracture - M72.0???Notes :1 tendon is mildly foreshortened.? He is asymptomatic.???4.?History of anemia - Z86.2???Notes :He has a mild anemia of chronic renal failure which requires no treatment.???5.?Recurrent major depressive disorder, in partial remission - F33.41???Notes :He and his psychiatrist or trying to optimize his antidepressant regimen.His depression currently feels slightly worse. He has the capacity to guaranntee is anxious not to harm himself.???6.?Benign prostatic hyperplasia with lower urinary tract symptoms - N40.1???Notes :Eron bandages nocturia once or night. We have discussed lifestyle modification as a way to reduce nocturia.???7.?History of herniated intervertebral disc - Z87.39???Notes :This is an old problem. He has occasional twinges of back pain and is avoiding heavy lifting. 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 Free PSA has been requested.??? Plan: * Treatment: 2.?Others? Continue Trintellix Tablet, 10 MG, 1 tablet, Orally, at bed time;?Continue Pramipexole Dihydrochloride Tablet, 0.125 MG, 1 tablet in the morning and 2 tablets in the evening, Orally;?Continue Tamsulosin HCl Capsule, 0.4 MG, 1 capsule, Orally, Twice a day;?Continue lamoTRIgine Tablet, 25 MG, 1 tablet, Orally, 25 mg in the morning and 50mg in the evening;?Continue Colace Capsule, 100 MG, 1 capsule as needed, Orally, Twice a day;?Continue Divalproex Sodium Tablet Delayed Release, 250 MG, 1 tablet, Orally, One in the morning, 3 at bed time.?? * Procedure Codes:? * Follow Up:?January (Reason: Ro utine check-up) * Images: * Sign off status: Completed true * Provider:?Ari Hatch MD Date:?08/19 Generated for Printi ng/Faxing/eTransmitting on:?11/03/2024 12:45 PM EST History and Physical Notes * HPI (History of Present Illness) Category Sub-Category Detail Notes COVID-19 Screening Questions Have you had any new onset fever, chills, cough, congestion, sore throat, shortness of breath, muscle aches?: No Have you been exposed to the virus withi n the last 10 days?: No Have you travelled internationally in [facility] last 10 days?: No Have you been [...]
--- OUTSIDE RECORDS SUMMARY | 2024-11-03 12:45 | XMS_ITS ---
Author Organization Ari Hatch III, MD Address [address] [place] [address] [place] [address] Care Team Providers Care Engineering Lab Technician Name Role Phone Ari Hatch Primary Care Provider [phone] REASON FOR VISIT Prostate F/U Info Social History Sex Assigned At : Social History Observation Description Sex Assigned At Male Encounters Encounter Location Date Provider Diagnosis Air Hatch III, MD [address] [place] [address] [place] [address] 08/01/2024 Ari Hatch Plan Of Treatment Next Appt Details Provider Name:Ari Hatch, 01/30/2025 02:00:00 PM, [address] [place] [address] [place] [facility], [address], Progress Notes * Todd ZAVALADOB: [birth year] (79 yo M)Acc No.[id number]:08/01/2024 Patient:?Todd Zavala :1945???Age:79 Y???Sex:Male Address:[place], [address] * true * Date:? Generated for Printi ng/Faesag/eTransmitting on:?11/03/2024 12:45 PM EST
--- OUTSIDE RECORDS SUMMARY | 2024-11-03 12:45 | XMS_ITS ---
Author Organization Ari Hatch III, MD Address [address] [place] [address] [place] [address] Care Team Providers Care Roller Bearing Inspector Name Role Phone Ari Hatch Primary Care Provider REASON FOR VISIT ? changes to be made to his order from Dr Hatch Social History Sex Assigned At : Social History Observation Description Sex Assigned At Male Encounters Encounter Location Date Provider Diagnosis Ari Hatch III, MD [address] [place] [address] [place] [address] 08/04/2024 Ari Hatch Chronic kidney disea se, [...] 08/04/2024 Next Appt Details Provider Name:Ari Hatch, 01/30/2025 02:00:00 PM, [address] [place] [address] [place], [place], [address], Progress Notes * Todd ZAVALA JDOB: [birth year] (79 yo M)Acc No.[id number]:08/04/2024 Patient:?Todd Zavala :1945???Age:79 Y???Sex:Male Address:[address] [place] [address], [place], [address] Subjective: * Chief Complaints: * ? changes to be made to h is order from Dr Hatch * Medical History:? * Surgical History:? * Hospitalization/Major Diagno stic Procedure:? * Medications:? Objective: Assessment: * Assessment: 1.?Chronic kidney disease, u nspecified CKD stage - N18.9?2.?History of anemia - Z86.2?3.?Benign prostatic hyperplasia with lower urinary tract symptoms - N40.1?4.?Hyperlipidemia, unspecified hyperlipidemia type - E78.5?5.?Elevated PSA - R97.20? Plan: * Treatment: 2.?History of anemia?LAB: PROFILE, FASTING (COMPREHENSIVE METABOLIC) ?LAB: LIPID PANEL ?LAB: CBC w DIFF ?LAB: PSA Free and Total 3.?Benign prostatic hyperpla marlen with lower urinary tract symptoms?LAB: PROFILE, FASTING (COMPREHENSIVE METABOLIC) ?LAB: LIPID PANEL ?LAB: CBC w DIFF ?LAB: PSA Free and Total 4.?Hyperlipidemia, unspecifi ed hyperlipidemia type?LAB: PROFILE, FASTING (COMPREHENSIVE METABOLIC) ?LAB: LIPID PANEL ?LAB: CBC w DIFF ?LAB: PSA Free and Total 5.?Elevated PSA?LAB: PROFILE, FASTING (COMPREHENSIVE METABOLIC) ?LAB: LIPID PANEL ?LAB: CBC w DIFF ?LAB: PSA Free and Total * Procedure Codes:? * true * Date:? Generated for Victor Manuel roth/Costa/Jose on:?11/03/2024 12:45 PM EST
--- OUTSIDE RECORDS SUMMARY | 2024-11-03 12:46 | XMS_ITS | Patient Health Record ---
Author Organization [facility] Address [address] [place] [address] Care Team Providers Care Block Cutter Name Role Phone Ari Hatch MD Primary Care Provider Unavailab Ari Francois Unavailable [phone] ALLERGIES No Known Allergies REASON FOR REFERRAL No Information MEDICATIONS Medication SIG (Take, Route, Frequency, Duration) Notes Start Date End Date Status Multivitamin Adult - as directed Orally Once a day Active Colace 100 MG 1 capsule as needed Orally BID Active Trintellix 10 MG 1 tablet Orally Once a day for 30 day(s) Active Tamsulosin HCl 0.4 MG 1 capsule Orally t wice a day Active Finasteride 5 MG 1 tablet Orally Once a day for 30 day(s) Active lamoTRIgine 150 MG 1 tablet Orally QPM Active Divalproex Sodium 500 MG as directed Orally BID Active IMMUNIZATIONS Vaccine Route Administration Date Status Comme nts Influenza Unknown 07/20/2018 Administered Influenza Unknown 09/20/2022 Administered SOCIAL HISTORY Tobacco Use: Social History Observation Description Date Details (start date - stop date) Never Smoker NA - NA Sex Assigned At : Social History Observation Description Sex Assigned At Unknown Tobacco Use/Smoking Question Answer Notes Patient is a nonsmoker Alcohol Screen Question Answer Notes Did you have a drink contain ing alcohol in the past year? Yes How often did you have a dri nk containing alcohol in the past year? Monthly or less (1 point) How many drinks did you have on a typical day when you were drinking in the past year? 1 or 2 drinks (0 point) How often did you have 6 or more drinks on one occasion in the past year? Never (0 point) Points 1 Interpretation Negative PROBLEMS Problem Type ICD Code Onset Dates Problem Status W/U Status Risk SNOMED Code Notes Problem Encounter for screening for malignant neoplasm of colon (Z12.11) Active confirmed 090135150 Problem History of adenomatous polyp of colon (Z86.010) Active confirmed History o f adenomatous polyp of colon (858531047) Problem Diverticulosis of large intestine without perforation or abscess without bleeding (K57.30) Active confirmed Diverticul ar disease of colon (819621561) PLAN OF TREATMENT Future Test Test Name Order Date COLONOSCOPY 02/13/2019 COLONOSCOPY 10/18/2022 Insurance Providers Payer Name Payer Address Payer Phone Subscriber Number Group Number Insured Name Patient Relationship to Insured Coverage Start Date Coverage End Date MEDICARE OF [place] [address] [place] [address] [id number] AGAPITO CROCKER Self - patient is the insured MED[employer] ATTN CLAIMS [address] [place] [address] [id number] AGAPITO CROCKER Self - patient is the insured MEDICAL (GENERAL) HISTORY Medical History History ICD Code Chronic renal insufficiency-sees Dr. Mai rondon- Depression Denies SD,DM,CVA,Lung disease BPH Anemia Screening Colonoscopy 05/2019 --3 tubular adenomas were removed, with 2 of them being > 1 cm. The polypectomy site in the distal sigmoid colon was marked with submucosal ink. Surgical History Surgery Date(Month/Year) INGUINAL HERNIA REPAIR LEFT 2017 INGUINAL HERNIA REPAIR RIGHT 1994
--- OUTSIDE RECORDS SUMMARY | 2024-11-03 12:46 | XMS_ITS | Patient Health Record ---
Author Organization Ari Hatch III, MD Address [address] [place] [address] Care Team Providers Care Outside Sales Professional Name Role Phone Ari Hatch Primary Care Provider Allergies Allergen (clinical drug ingredient) Drug/Non Drug Allergy documented on EMR Reaction Allergy Type Onset Date Status aripiprazole Abilify Unknown Drug Allergy Acti ve Results Component Value Reference Range Notes URINE DIP STICK Reviewed date:01/29/2024 02:58:48 PM Interpretation: Performing Lab: Notes/Report: SG 1.010 1.005 - 1.025 pH 7.0 5.0 - 9.0 DENY Negative Negative - NIT Negative Negative - PRO 15 Negative - Trace GLU Negative Negative - KET Negative Negative - UBG 0.2 0.1 - 1.8 VICK Negative 0.2 - 1.3 BLD Negative Negative - Parathyroid Hormone Intact Reviewed date:01/24/2024 08:56:03 PM Interpretation: Performing Lab:[facility], [address] [place] [phone] Notes/Report: FAX [id number] Parathyroid Hormone Intact 63.6 8.7-77.1 pg/mL PSA Free and Total Reviewed date:07/06/2024 06:43:25 AM Interpretation: Performing Lab:[facility], [address] [place] [phone] Notes/Report: Prostate Specific Ag Total 9.1 < OR = 4.0 ng/mL Percent Free Prostate Spec Ag 35 >25 % (calc) PSA(ng/mL) Free PSA(%) Estimated(x) Probability of Cancer(as%) 0-2.5 (*) Approx. 1 2.6-4.0(1) 0-27(2) 24(3) 4.1-10(4) 0-10 56 11-15 28 16-20 20 21-25 16 >or =26 8 >10(+) N/A >50 References:(1)Chelo holcomb et al.:Urology 60: 469-474 (2001) (2)Lake et al.:J.Urol 168: 922-925 (2001) Free PSA(%) Sensitivity(%) Specificity(%) < or = 25 85 19 < or = 30 93 9 (3)Catalona et al.:SOFIE 277: 2276-3537 (1996) (4)Catalona et al.:SOFIE 279: 1376-4550 (1997) (x)These estimates vary with age, ethnicity, family history and BERNIE results. (*)The diagnostic usefulness of % Free PSA has not been established in patients with total PSA below 2.6 ng/mL (+)In men with PSA above 10 ng/mL, prostate cancer risk is determined by total PSA alone. The Total PSA value from this assay system is standardized against the equimolar PSA standard. The test result will be approximately 20% higher when compared to the WHO-standardized Total PSA (Siemens assay). Comparison of serial PSA results should be interpreted with this fact in mind. PSA was performed using the Leonard Oxly Immunoassay method. Values obtained from different assay methods cannot be used interchangeably. PSA levels, regardless of value, should not be interpreted as absolute evidence of the presence or absence of disease. THIS TEST WAS PERFORMED AT: [facility] [address] [place] [phone] ADAM ORLANDO MD Free Prostate Spec Ag 3.2 Complete Blood Count Auto Di ff Reviewed date:12/15/2023 11:45:30 AM Interpretation: Performing Lab:[facility], [address] [place] [phone] Notes/Report: White Blood Count 4.2 4.8-10.8 X10*3/uL Red Blood Count 3.43 4.60-5.80 X10*6/uL Hemoglobin 10.9 14.0-18.0 g/dl Hematocrit 32.7 42.0-52.0 % Mean Corpuscular Volume 95.3 80.0-98.0 fL Mean Corpuscular Hemoglobin 31.8 27.0-33.0 pg Mean Corpuscular HGB Conc 33.3 31.0-36.0 g/dl Red Cell Distribution Width 14.6 11.0-16.0 % Platelet Count 193 160-400 X10*3/uL Mean Platelet Volume 11.2 9.4-12.4 fL Neutrophils Percent Auto 49.3 45-73 % Imm Gran Pct Auto 0.5 0.0-0.4 % Lymphocytes Percent Auto 31.3 20-40 % Monocytes Percent Auto 15.3 2-11 % Eosinophils Percent Auto 3.1 0-4 % Basophils Percent Auto 0.5 0-2 % NRBC Pct Auto 0.0 0.0-0.2 /100WBC Neutrophils Absolute Auto 2.1 2.0-8.3 x10*3/uL Imm Gran Abs Auto 0.02 0.00-0.03 X10*3/uL Lymphocytes Absolute Auto 1.3 1.2-4.9 X10*3/uL Monocytes Absolute Auto 0.6 0.1-1.2 X10*3/uL Eosinophils Absolute Auto 0.1 0.0-0.4 X10*3/uL Basophils Absolute Auto 0.0 0.0-0.2 X10*3/uL NRBC Abs Auto 0.000 0.0-0.012 X10*3/uL Comprehensive Met. Panel Reviewed date:12/15/2023 11:45:30 AM Interpretation: Performing Lab:[facility], [address] [place] [phone] Notes/Report: Sodium 142 135-145 mmol/L Potassium 4.4 3.3-5.1 mmol/L Chloride 108 96-108 mmol/L Carbon Dioxide 24 22-29 mmol/L Anion Gap 14 12-20 Blood Urea Nitrogen 58 9-16 mg/dL Creatinine 2.54 0.5-1.4 mg/dL Estimated Glomerular Filt Rate 25 NOTE: For -[place] individuals, multiply the result by 1.210. Chronic Kidney Disease: Estimated GFR < 60 mL/min/1.73m2 Severe Kidney Disease: Estimated GFR < 15 mL/min/1.73m2 Glucose Random 99 60-115 mg/dL Calcium 9.2 8.4-10.2 mg/dL Bilirubin Total 0.3 0.0-1.0 mg/dL Aspartate Amino Transferase 20 5-37 U/L Alanine Aminotransferase 15 0-40 U/L Total Protein 6.6 6.5-8.0 g/dL Albumin Level 3.6 3.5-5.0 g/dL Alkaline Phosphatase 100 39-117 U/L Prostate Specific Antigen Reviewed date:12/15/2023 11:45:30 AM Interpretation: Performing Lab:[facility], [address] [place] [phone] Notes/Report: Prostate Specific Antigen 4.02 <0.05-4.0 ng/mL PSA methodology: Foreman Alinity i Chemiluminescent Microparticle Immunoassay (CMIA) Parathyroid Hormone Intact Reviewed date:12/15/2023 11:45:30 AM Interpretation: Performing Lab:[facility], [address] [place] [phone] Notes/Report: Parathyroid Hormone Intact 67.4 8.7-77.1 pg/mL XR DEXA axial skeleton Reviewed date:01/24/2024 08:56:03 PM Interpretation: Performing Lab: Notes/Report: [facility] [place] [address] Mammography Report Signed Patient: Todd Zavala MR#: [id number] : 1945 Acct:[id number] Age/Sex: 78 / M ADM Date: 01/09/24 Loc: HO.MAMMO Attending Dr: Ari Hatch MD Ordering Physician: Ari Hatch MD Results: Date of Service: 01/09/24 Follow Up: Procedure(s): XR DEXA axial skeleton Accession Number(s): [id number] cc: Ari Hatch MD; Scot Michael MD EXAMINATION: BONE DENSITOMETRY CLINICAL INDICATION: Other specified disorders of bone density and structure. COMPARISON: This is the patient's baseline examination. TECHNIQUE: Using a Hero [employer] Management AS DXA System (software version: 13.1) manufactured by [employer], dual-energy x-ray absorptiometry was performed of the lumbar spine and left hip. The images are of good technical quality. Summary results are attached. FINDINGS: LEFT FEMUR, NECK: BMD 0.783 g/cm2, Z-score -0.6, T-score -2.2, osteopenia. LEFT FEMUR, TOTAL: BMD 0.783 g/cm2, Z-score -1.1, T-score -2.2, osteopenia. AP SPINE L1-L4: BMD 1.200 g/cm2, Z-score 0.7, T-score -0.2, normal. IDENTIFIED RISK FACTORS: Kidney disease, history of fracture (adult). HISTORY OF FRACTURE: Humerus. MEDICATIONS: Multivitamin. MM/XR DEXA axial skeleton IMPRESSION: 1. DIAGNOSIS: Osteopenia based on the lowest T-score value of -2.2 in the femoral neck and total femur applying World Health Organization criteria. 2. 10-YEAR FRACTURE RISK PREDICTION, FRAX: Major osteoporotic fracture (clinical spine, forearm, hip or shoulder) 12.2%. Hip fracture 4.5%. 3. Treatment Recommendations: NOF guidelines recommend consideration for treatment in postmenopausal women and men age 50 and older presenting with the following: -A hip or vertebral (clinical or morphometric) fracture. -T-score less than or equal to -2.5 at the femoral neck or spine after appropriate evaluation to exclude secondary causes. -Low bone mass at the hip or spine and a 10-year fracture probability by FRAX of greater than or equal to 3% for hip fracture or greater than or equal to 20% for major osteoporotic fracture based on the [place] adapted WHO algorithm. 4. Other Recommendations: All treatment decisions require clinical judgment and consideration of individual patient factors, including patient preferences, comorbidities, previous drug use, risk factors not captured in the FRAX model (e.g. frailty, falls, vitamin D deficiency, increased bone turnover, interval significant decline in bone density) and possible under or overestimation of fracture risk by FRAX. Additional medical evaluation for secondary cause of low bone mineral density may be appropriate. FUTURE SCAN RECOMMENDATION: People with diagnosed cases of osteoporosis or at high risk for fracture should have regular bone mineral density tests. For patients eligible for Medicare, routine testing is allowed once every 2 years. The testing frequency can be increased to one year for patients who have rapidly progressing disease, those who are receiving or discontinuing medical therapy to restore bone mass, or have additional risk factors. Dictated By: Todd Salguero MD Signed By: <Electronically signed by Todd Salguero MD in OV> 01/16/24 1720 DD/ 1125 TD/TT: Rn Palliative Care: [facility] [address] [place] [address] Mammography Report Signed Patient: Clint Zavala MR#: [id number] : 1945 Acct:[id number] Age/Sex: 78 / M ADM Date: 01/09/24 Loc: HO.MAMMO Attending Dr: Ari Hatch MD Ordering Physician: Ari Hatch MD Results: Date of Service: 01/09/24 Follow Up: Procedure(s): XR DEX A axial skeleton Accession Number(s): [id number] cc: Ari Hatch MD; Scot Michael MD EXAMINATION: BONE DENSITOMETRY CLINICAL INDICATION: Other specified disorders of bone density and structure. COMPARISON: This is the patient' s baseline examination. TECHNIQUE: Using a Hero [employer] Management AS DXA System (software version: 13.1) [employer], dual-energy x-ray absorptiometry was performed of the lumbar spine and left hip. The images are of good technical quality. Summary results are attached. FINDINGS: LEFT FEMUR, NECK: BMD 0.783 g/cm2, Z-score -0.6, T-score -2.2, osteopenia. LEFT FEMUR, TOTAL: BMD 0.783 g/cm2, Z-score -1.1, T-score -2.2, osteopenia. AP SPINE L1-L4: BMD 1.200 g/cm2, Z-score 0.7, T-score -0.2, normal. IDENTIFIED RISK FACTORS: Kidney disease, hist ory of fracture (adult). HISTORY OF FRACTURE: Humerus. MEDICATIONS: Multivitamin. MM/XR DEXA axial skeleton IMPRESSION: 1. DIAGNOSIS: Osteopenia based on the lowest T-score value of -2.2 in the femoral neck and total femur applying World Health Organization criteria. 2. 10-YEAR FRACTURE RISK PREDICTION, FRAX: Major osteoporotic fracture (clinical spine, forearm, hip or shoulder) 12.2%. Hip fracture 4.5%. 3. Treatment Recommendations: NOF guidelines recommend consideration for treatment in postmenopausal women and men age 50 and older presenting with the following: -A hip or vertebral (clinical or morphometric) fracture. -T-score less than o r equal to -2.5 at the femoral neck or spine after appropriate evaluati on to exclude secondary causes. -Low bone mass at th e hip or spine and a 10-year fracture probability by FRAX of greater t floyd or equal to 3% for hip fracture or greater than or equal to 20% for major osteoporotic fracture based on the [place] adapted WHO algorithm. 4. Other Recommendations: All treatment decisions require clinical judgment and consideration of individual patient factors, including patient preferences, comorbidities, previous drug use, risk factors not captured in the FRAX model (e.g. frailty, falls, vitamin D deficiency, increased bone turnover, interval significant decline in bone density) and possible under o r overestimation of fracture risk by FRAX. Additional medical evaluation for secondary cause of low bone mineral density may be appropriate. FUTURE SCAN RECOMMENDATION: People with diagnose d cases of osteoporosis or at high risk for fracture should have regular bone mineral density tests. For patients eligible for Medicar e, routine testing is allowed once every 2 years. The testing frequenc y can be increased to one year for patients who have rapidly progressing disease, those who are receiving or discontinuing medica l therapy to restore bone mass, or have additional risk factors. Dictated By: Todd Salguero MD Signed By: <Electronically signed by Todd Salguero MD in OV> 01/16/24 1720 DD/ 1125 TD/TT: Rn Palliative Care: [facility] Complete Blood Count Auto Di ff Reviewed date:01/24/2024 08:56:03 PM Interpretation: Performing Lab:[facility], [address] [place] [phone] Notes/Report: PLEASE FAX RESULT White Blood Count 6.1 4.8-10.8 X10*3/uL Red Blood Count 3.77 4.60-5.80 X10*6/uL Hemoglobin 11.8 14.0-18.0 g/dl Hematocrit 35.2 42.0-52.0 % Mean Corpuscular Volume 93.4 80.0-98.0 fL Mean Corpuscular Hemoglobin 31.3 27.0-33.0 pg Mean Corpuscular HGB Conc 33.5 31.0-36.0 g/dl Red Cell Distribution Width 14.6 11.0-16.0 % Platelet Count 159 160-400 X10*3/uL Mean Platelet Volume 11.0 9.4-12.4 fL Neutrophils Percent Auto 52.5 45-73 % Imm Gran Pct Auto 0.3 0.0-0.4 % Lymphocytes Percent Auto 32.6 20-40 % Monocytes Percent Auto 11.9 2-11 % Eosinophils Percent Auto 1.7 0-4 % Basophils Percent Auto 1.0 0-2 % NRBC Pct Auto 0.0 0.0-0.2 /100WBC Neutrophils Absolute Auto 3.2 2.0-8.3 x10*3/uL Imm Gran Abs Auto 0.02 0.00-0.03 X10*3/uL Lymphocytes Absolute Auto 2.0 1.2-4.9 X10*3/uL Monocytes Absolute Auto 0.7 0.1-1.2 X10*3/uL Eosinophils Absolute Auto 0.1 0.0-0.4 X10*3/uL Basophils Absolute Auto 0.1 0.0-0.2 X10*3/uL NRBC Abs Auto 0.000 0.0-0.012 X10*3/uL Comprehensive Met. Panel Reviewed date:01/24/2024 08:56:03 PM Interpretation: Performing Lab:[facility], [address] [place] [phone] Notes/Report: FAX [id number] Sodium 142 135-145 mmol/L Potassium 5.4 3.3-5.1 mmol/L Chloride 109 96-108 mmol/L Carbon Dioxide 24 22-29 mmol/L Anion Gap 14 12-20 Blood Urea Nitrogen 58 9-16 mg/dL Creatinine 2.19 0.5-1.4 mg/dL Estimated Glomerular Filt Rate 29 NOTE: For -[place] individuals, multiply the result by 1.210. Chronic Kidney Disease: Estimated GFR < 60 mL/min/1.73m2 Severe Kidney Disease: Estimated GFR < 15 mL/min/1.73m2 Glucose Random 88 60-115 mg/dL Calcium 9.6 8.4-10.2 mg/dL Bilirubin Total 0.2 0.0-1.0 mg/dL Aspartate Amino Transferase 21 5-37 U/L Alanine Aminotransferase 20 0-40 U/L Total Protein 6.9 6.5-8.0 g/dL Albumin Level 4.0 3.5-5.0 g/dL Alkaline Phosphatase 99 39-117 U/L Prostate Specific Antigen Reviewed date:01/24/2024 08:56:03 PM Interpretation: Performing Lab:[facility], [address] [place] [phone] Notes/Report: FAX [id number] Prostate Specific Antigen 4.01 <0.05-4.0 ng/mL PSA methodology: Foreman Alinity i Chemiluminescent Microparticle Immunoassay (CMIA) Complete Blood Count Auto Di ff Reviewed date:04/29/2024 10:20:34 AM Interpretation: Performing Lab:[facility], [address] [place] [phone] Notes/Report: White Blood Count 5.6 4.8-10.8 X10*3/uL Red Blood Count 3.81 4.60-5.80 X10*6/uL Hemoglobin 12.0 14.0-18.0 g/dl Hematocrit 36.2 42.0-52.0 % Mean Corpuscular Volume 95.0 80.0-98.0 fL Mean Corpuscular Hemoglobin 31.5 27.0-33.0 pg Mean Corpuscular HGB Conc 33.1 31.0-36.0 g/dl Red Cell Distribution Width 14.7 11.0-16.0 % Platelet Count 180 160-400 X10*3/uL Mean Platelet Volume 11.1 9.4-12.4 fL Neutrophils Percent Auto 58.3 45-73 % Imm Gran Pct Auto 0.4 0.0-0.4 % Lymphocytes Percent Auto 26.2 20-40 % Monocytes Percent Auto 10.9 2-11 % Eosinophils Percent Auto 3.0 0-4 % Basophils Percent Auto 1.2 0-2 % NRBC Pct Auto 0.0 0.0-0.2 /100WBC Neutrophils Absolute Auto 3.3 2.0-8.3 x10*3/uL Imm Gran Abs Auto 0.02 0.00-0.03 X10*3/uL Lymphocytes Absolute Auto 1.5 1.2-4.9 X10*3/uL Monocytes Absolute Auto 0.6 0.1-1.2 X10*3/uL Eosinophils Absolute Auto 0.2 0.0-0.4 X10*3/uL Basophils Absolute Auto 0.1 0.0-0.2 X10*3/uL NRBC Abs Auto 0.000 0.0-0.012 X10*3/uL Comprehensive Met. Panel Reviewed date:04/29/2024 10:20:34 AM Interpretation: Performing Lab:[facility], [address] [place] [phone] Notes/Report: Sodium 141 135-145 mmol/L Potassium 4.9 3.3-5.1 mmol/L Chloride 111 96-108 mmol/L Carbon Dioxide 22 22-29 mmol/L Anion Gap 13 12-20 Blood Urea Nitrogen 47 9-16 mg/dL Creatinine 2.39 0.5-1.4 mg/dL Estimated Glomerular Filt Rate 27 NOTE: For -[place] individuals, multiply the result by 1.210. Chronic Kidney Disease: Estimated GFR < 60 mL/min/1.73m2 Severe Kidney Disease: Estimated GFR < 15 mL/min/1.73m2 Glucose Random 88 60-115 mg/dL Calcium 9.6 8.4-10.2 mg/dL Bilirubin Total 0.4 0.0-1.0 mg/dL Aspartate Amino Transferase 26 5-37 U/L Alanine Aminotransferase 26 0-40 U/L Total Protein 6.9 6.5-8.0 g/dL Albumin Level 3.9 3.5-5.0 g/dL Alkaline Phosphatase 74 39-117 U/L PSA Free and Total Reviewed date:05/03/2024 05:16:40 AM Interpretation: Performing Lab:[facility], [address] [place] [phone] Notes/Report: Prostate Specific Ag Total 8.0 < OR = 4.0 ng/mL Percent Free Prostate Spec Ag 38 >25 % (calc) PSA(ng/mL) Free PSA(%) Estimated(x) Probability of Cancer(as%) 0-2.5 (*) Approx. 1 2.6-4.0(1) 0-27(2) 24(3) 4.1-10(4) 0-10 56 11-15 28 16-20 20 21-25 16 >or =26 8 >10(+) N/A >50 References:(1)Chelo holcomb et al.:Urology 60: 469-474 (2002) (2)Lake et al.:J.Urol 168: 922-925 (2001) Free PSA(%) Sensitivity(%) Specificity(%) < or = 25 85 19 < or = 30 93 9 (3)Lake et al.:SOFIE 277: 4504-4577 (1996) (4)Catalona et al.:SOFIE 279: 6879-4983 (1997) (x)These estimates vary with age, ethnicity, family history and BERNIE results. (*)The diagnostic usefulness of % Free PSA has not been established in patients with total PSA below 2.6 ng/mL (+)In men with PSA above 10 ng/mL, prostate cancer risk is determined by total PSA alone. The Total PSA value from this assay system is standardized against the equimolar PSA standard. The test result will be approximately 20% higher when compared to the WHO-standardized Total PSA (Siemens assay). Comparison of serial PSA results should be interpreted with this fact in mind. PSA was performed using the Leonard Oxly Immunoassay method. Values obtained from different assay methods cannot be used interchangeably. PSA levels, regardless of value, should not be interpreted as absolute evidence of the presence or absence of disease. THIS TEST WAS PERFORMED AT: [facility] [address] [phone] ADAM ORLANDO MD Free Prostate Spec Ag 3.0 PSA Free and Total Reviewed date:07/06/2024 06:43:25 AM Interpretation: Performing Lab:[facility], [address] [place] [phone] Notes/Report: Prostate Specific Ag Total 10.3 < OR = 4.0 ng/mL Percent Free Prostate Spec Ag NOT CALCULATED >25 % (calc) PSA(ng/mL) Free PSA(%) Estimated(x) Probability of Cancer(as%) 0-2.5 (*) Approx. 1 2.6-4.0(1) 0-27(2) 24(3) 4.1-10(4) 0-10 56 11-15 28 16-20 20 21-25 16 >or =26 8 >10(+) N/A >50 References:(1)Chelo taylor al.:Urology 60: 469-474 (2002) (2)Lake et al.:J.Urol 168: 922-925 (2001) Free PSA(%) Sensitivity(%) Specificity(%) < or = 25 85 19 < or = 30 93 9 (3)Catalona et al.:SOFIE 277: 3231-3926 (1996) (4)Catalona et al.:SOFIE 279: 9196-6435 (1997) (x)These estimates vary with age, ethnicity, family history and BERNIE results. (*)The diagnostic usefulness of % Free PSA has not been established in patients with total PSA below 2.6 ng/mL (+)In men with PSA above 10 ng/mL, prostate cancer risk is determined by total PSA alone. The Total PSA value from this assay system is standardized against the equimolar PSA standard. The test result will be approximately 20% higher when compared to the WHO-standardized Total PSA (Siemens assay). Comparison of serial PSA results should be interpreted with this fact in mind. PSA was performed using the Leonard Joni Immunoassay method. Values obtained from different assay methods cannot be used interchangeably. PSA levels, regardless of value, should not be interpreted as absolute evidence of the presence or absence of disease. THIS TEST WAS PERFORMED AT: [facility] [address] [place] [phone] ADAM ORLANDO MD Free Prostate Spec Ag 3.5 US renal BI Reviewed date:09/01/2024 07:04:40 AM Interpretation: Performing Lab: Notes/Report: [place] [address] Ultrasound Report Signed Patient: Todd Zavala MR#: [id number] : 1945 Acct:[id number] Age/Sex: 79 / M ADM Date: 08/05/24 Loc: HO.US Attending Dr: Sam Gilbert MD Ordering Physician: Sam Gilbert MD Date of Service: 08/05/24 Procedure(s): US renal BI Accession Number(s): [id number] cc: Sam Gilbert MD; Ari Hatch MD EXAMINATION: US RETROPERITONEAL LIMITED (RENAL ONLY) CLINICAL INFORMATION: Chronic kidney disease, unspecified. COMPARISON: Renal ultrasound 04/24/2019 and 07/08/2018. TECHNIQUE: Real-time imaging of the kidneys. FINDINGS: RIGHT KIDNEY: 10.3 x 5.0 x 5.3 cm (SAG x AP x TRV). The kidney is normal in size and contour. Renal cortical thickness is normal. No renal calculi or hydronephrosis. Benign-appearing cysts measuring up to 3.2 cm. Followup imaging is not routinely recommended for benign appearing cysts.. LEFT KIDNEY: 10.7 x 5.5 x 5.1 cm (SAG x AP x TRV). The kidney is normal in size and contour. Renal cortical thickness is normal. No renal calculi or hydronephrosis. Benign-appearing cysts measuring up to 4.3 cm. Followup imaging is not routinely recommended for benign appearing cysts.. ADDITIONAL FINDINGS: Incidentally seen right hepatic lobe 2.3 cm cyst. US/US renal BI IMPRESSION: Bilateral benign-appearing renal cysts. Followup imaging is not routinely recommended for benign appearing cysts. Electronically signed by: Magda Montiel MD 08/19/2024 02:36 PM EDT Dictated By: Magda Montiel MD Signed By: <Electronically signed by Magda Montiel MD in OV> 08/19/24 1436 DD/ 1130 TD/TT: 08/05/24 1130 Rn Palliative Care: [place] [address] Ultrasound Report Signed Patient: Clint Zavala MR#: [id number] : 1945 Acct:[id number] Age/Sex: 79 / M ADM Date: 08/05/24 Loc: HO.US Attending Dr: Sam Gilbert MD Ordering Physician: Sam Gilbert MD Date of Service: 08/05/24 Procedure(s): US sharon al BI Accession Number(s): [id number] cc: Sam Gilbert MD; Ari Hatch MD EXAMINATION: US RETROPERITONEAL LIMITED (RENAL ONLY) CLINICAL INFORMATION: Chronic kidney disea se, unspecified. COMPARISON: Renal ultrasound 04/24/2019 and 07/08/2018. TECHNIQUE: Real-time imaging of the kidneys. FINDINGS: RIGHT KIDNEY: 10.3 x 5.0 x 5.3 cm (SAG x AP x TRV). The kidney is normal in size and contour. Renal cortical thickness is normal. No renal calculi or hydronephrosis. Benign-appearing cysts measuring up to 3.2 cm. Followup imaging is not routinely recommended for benign appearing cysts.. LEFT KIDNEY: 10.7 x 5.5 x 5.1 cm (SAG x AP x TRV). The kidney is normal in size and contour. Renal cortical thickness is normal. No renal calculi or hydronephrosis. Benign-appearing cysts measuring up to 4.3 cm. Followup imaging is not routinely recommended for benign appearing cysts.. ADDITIONAL FINDINGS: Incidentally seen right hepatic lobe 2.3 cm cyst. US/US renal BI IMPRESSION: Bilateral benign-appearing renal cysts. Followup imaging is not routinely recommende d for benign appearing cysts. Electronically trena d by: Magda Montiel MD 08/19/2024 02:36 PM EDT Dictated By: Magda Montiel MD Signed By: <Electronically signed by Magda Montiel MD in OV> 08/19/24 1436 DD/ 1130 TD/TT: 08/05/24 1130 Rn Palliative Care: Complete Blood Count Auto Di ff Reviewed date:09/01/2024 07:04:40 AM Interpretation: Performing Lab:[facility], [address] [place] [phone] Notes/Report: COPY TO DR. GILBERT ALSO COPY TO DR. ACKERMAN White Blood Count 4.6 4.8-10.8 X10*3/uL Red Blood Count 3.74 4.60-5.80 X10*6/uL Hemoglobin 11.8 14.0-18.0 g/dl Hematocrit 35.5 42.0-52.0 % Mean Corpuscular Volume 94.9 80.0-98.0 fL Mean Corpuscular Hemoglobin 31.6 27.0-33.0 pg Mean Corpuscular HGB Conc 33.2 31.0-36.0 g/dl Red Cell Distribution Width 14.6 11.0-16.0 % Platelet Count 168 160-400 X10*3/uL Mean Platelet Volume 10.6 9.4-12.4 fL Neutrophils Percent Auto 50.7 45-73 % Imm Gran Pct Auto 0.4 0.0-0.4 % Lymphocytes Percent Auto 33.4 20-40 % Monocytes Percent Auto 11.6 2-11 % Eosinophils Percent Auto 2.6 0-4 % Basophils Percent Auto 1.3 0-2 % NRBC Pct Auto 0.0 0.0-0.2 /100WBC Neutrophils Absolute Auto 2.3 2.0-8.3 x10*3/uL Imm Gran Abs Auto 0.02 0.00-0.03 X10*3/uL Lymphocytes Absolute Auto 1.5 1.2-4.9 X10*3/uL Monocytes Absolute Auto 0.5 0.1-1.2 X10*3/uL Eosinophils Absolute Auto 0.1 0.0-0.4 X10*3/uL Basophils Absolute Auto 0.1 0.0-0.2 X10*3/uL NRBC Abs Auto 0.000 0.0-0.012 X10*3/uL Comprehensive [place]. Panel Fa st Reviewed date:09/01/2024 07:04:40 AM Interpretation: Performing Lab:[facility], [address] [place] [phone] Notes/Report: COPY TO DR. GILBERT ALSO COPY TO DR. ACKERMAN Sodium 141 135-145 mmol/L Potassium 4.3 3.3-5.1 mmol/L Chloride 110 96-108 mmol/L Carbon Dioxide 26 22-29 mmol/L Anion Gap 9 12-20 Blood Urea Nitrogen 56 9-16 mg/dL Creatinine 2.48 0.5-1.4 mg/dL Estimated Glomerular Filt Rate 25 NOTE: For -[place] individuals, multiply the result by 1.210. Chronic Kidney Disease: Estimated GFR < 60 mL/min/1.73m2 Severe Kidney Disease: Estimated GFR < 15 mL/min/1.73m2 Glucose Fasting 93 60-99 mg/dL Calcium 9.6 8.4-10.2 mg/dL Bilirubin Total 0.4 0.0-1.0 mg/dL Aspartate Amino Transferase 24 5-37 U/L Alanine Aminotransferase 27 0-40 U/L Total Protein 6.6 6.5-8.0 g/dL Albumin Level 3.9 3.5-5.0 g/dL Alkaline Phosphatase 64 39-117 U/L Lipid Panel Reviewed date:09/01/2024 07:04:40 AM Interpretation: Performing Lab:[facility], [address] [place] [phone] Notes/Report: COPY TO DR. GILBERT ALSO COPY TO DR. ACKERMAN Triglycerides 79 <150 mg/dL Desirable Triglyceride: less than 150 mg/dL Borderline High Triglyceride 150-199 mg/dL High Triglyceride: 200-499 mg/dL Very High Triglyceride: greater than or equal to 5OO mg/dL Cholesterol 206 <200 mg/dL Desirable Cholesterol: less than 200 mg/dL Borderline High Cholesterol: 200-239 mg/dL High Cholesterol: greater than 239 mg/dL LDL Cholesterol Calculated 115 <100 mg/dL Desirable LDL: less than 100 mg/dL Near Optimal/Above Optimal LDL: 110-129 mg/dL Borderline High LDL: 130-159 mg/dL High LDL: 160-189 mg/dL Very High LDL: greater than or equal to 190 mg/dL HDL Cholesterol 76 >40 mg/dL Desirable HDL: greater than 40 mg/dL Note: This HDL assay may give artificially low results in patients with liver disease. PSA Free and Total Reviewed date:09/02/2024 11:50:09 AM Interpretation: Performing Lab:[facility], [address] [place] [id number] Notes/Report: COPY TO DR. GILBERT ALSO COPY TO DR. ACKERMAN Prostate Specific Ag Total 10.9 < OR = 4.0 ng/mL Percent Free Prostate Spec Ag NOT CALCULATED >25 % (calc) PSA(ng/mL) Free PSA(%) Estimated(x) Probability of Cancer(as%) 0-2.5 (*) Approx. 1 2.6-4.0(1) 0-27(2) 24(3) 4.1-10(4) 0-10 56 11-15 28 16-20 20 21-25 16 >or =26 8 >10(+) N/A >50 References:(1)Chelo holcomb et al.:Urology 60: 469-474 (2002) (2)Lake et al.:J.Urol 168: 922-925 (2002) Free PSA(%) Sensitivity(%) Specificity(%) < or = 25 85 19 < or = 30 93 9 (3)Catalona et al.:SOFIE 277: 5074-7237 (1996) (4)Catalona et al.:SOFIE 279: 5169-0450 (1997) (x)These estimates vary with age, ethnicity, family history and BERNIE results. (*)The diagnostic usefulness of % Free PSA has not been established in patients with total PSA below 2.6 ng/mL (+)In men with PSA above 10 ng/mL, prostate cancer risk is determined by total PSA alone. The Total PSA value from this assay system is standardized against the equimolar PSA standard. The test result will be approximately 20% higher when compared to the WHO-standardized Total PSA (Siemens assay). Comparison of serial PSA results should be interpreted with this fact in mind. PSA was performed using the Leonard Joni Immunoassay method. Values obtained from different assay methods cannot be used interchangeably. PSA levels, regardless of value, should not be interpreted as absolute evidence of the presence or absence of disease. THIS TEST WAS PERFORMED AT: [facility] [address] [place] [phone] ADAM ORLANDO MD Free Prostate Spec Ag 3.7 Reason For Referral Reason Consult and Treat He aring Aid Adjustment Diagnosis 1 Hearing loss (H91.90 ) Referral Organization Ari Hatch III, MD Referring Provider First Name Ari Referring Provider Last Name Holden Referring Provider Speciality Internal M edicine Referred Provider [facility] er, Speech & Hearing General Notes Bingen,Suri 2023 11:59:12 AM EDT > Referral Faxed Referral Priority Routine Referral Appointment Date 05/09/2024 Medications Medication SIG (Take, Route, Frequency, Duration) Notes Start Date End Date Status Divalproex Sodium 250 MG 1 tablet Orally One in the morning, 3 at bed time Active Colace 100 MG 1 capsule as needed Orally Twice a day Active lamoTRIgine 25 MG 1 tablet Orally 25 m g in the morning and 50mg in the evening Active Tamsulosin HCl 0.4 MG 1 capsule Orally T wice a day Active Multivitamin - 1 tablet Orally Once a day Active Pramipexole Dihydrochloride 0.125 MG 1 tablet in the morning and 2 tablets in the evening Orally Active Trintellix 10 MG 1 tablet Orally at b ed time Active Immunizations Vaccine Route Administration Date Status Comme nts Influenza no Preserv 3 and > Unknown 09/12/2019 Administered PCV13 Unknown 08/02/2020 Administered Influenza no Preserv 3 and > Unknown 08/02/2020 Administered COVID- 19 Vaccine Unknown 12/14/2020 Administered 1st d ose Moderna vaccine COVID- 19 Vaccine Unknown 01/14/2021 Administered 2nd d ose moderna vaccine FLuzone HD PF Unknown 09/13/2022 Administered Tetanus and Diphtheria Toxoids Adsorbed IM Intramuscular 01/23/2023 Administered SHINGRIX Unknown 12/28/2021 Administered Zostavax Unknown 09/29/2012 Administered FLuzone HD PF Unknown 08/18/2021 Administered SHINGRIX Unknown 04/02/2022 Administered COVID- 19 Vaccine Unknown 09/16/2021 Administered COVID- 19 Vaccine Unknown 02/24/2022 Administered COVID- 19 Vaccine Unknown 09/29/2022 Administered Influenza-iiv4 p-free high dose Unknown 08/28/2023 Administered COMIRNATY Pfizer-BioNTech Unknown 08/28/2023 Administered Social History Tobacco Use: Social History Observation Description Date Details (start date - stop date) Never Smoker NA - NA Sex Assigned At : Social History Observation Description Sex Assigned At Male Tobacco Use/Smoking Question Answer Notes Patient is a nonsmoker Additional Findings: Tobacco Non-User Aggressive non-smoker Alcohol Screen Question Answer Notes Did you have a drink containing alcohol in the p ast year? No Points 0 Interpretation Negative Problems Problem Type SNOMED Code ICD Code Onset Dates Problem Status W/U Status Risk Notes Problem 891793572 Anemia in chronic kidney disease (D63.1) Active confirmed He has a mil d normochromic normocytic anemia of chronic renal disease. Treatment is not necessary at this time. Problem 392119157 Chronic kidney disease, unspecified (N18.9) Active confirmed The current BUN and creatinine have increased. The BUN earlier this year was 40 and 44, now 58.Your creatinine was 2.17, then 2.48 and now 2.54. He was referred back to nephrology. Problem Hearing loss (67440635) Hearing loss (H91.90) Active confirmed Problem 446584913 Benign prostatic hyperplasia with lower urinary tract symptoms (N40.1) Active confirmed Eron bandages nocturia once or night. We have discussed lifestyle modification as a way to reduce nocturia. Problem 489852108 Elevated PSA (R97.20) Active confirmed His PSA is 8.0. Free PSA has been requested. Problem 516435384 Chronic kidney disease, unspecified CKD stage (N18.9) Active confirmed His current BU N is 56 with a creatinine of 2.48. His GFR is slightly diminished. He remains under the care of nephrology. Problem Hearing loss (11587065) Decreased hearing, unspecified laterality (H91.90) Active confirmed His hearing los s is stable and no change in his regimen was needed today. 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 He has the capacity to guaranntee is anxious not to harm himself. Problem 182324208 History of anemia (Z86.2) Active confirmed He has a mild anemia of chronic renal failure which requires no treatment. Problem 228831418 History of herniated intervertebral disc (Z87.39) Active confirmed This is an old problem. He has occasional twinges of back pain and is avoiding heavy lifting. The problem is stable and does not require treatment this time. Problem 535594768 History of bilateral inguinal hernias (Z87.19) Active confirmed The incisions are stable and he is asymptomatic. He is voiding severe heavy lifting. Vital Signs Heart Rate 72 /min 09/02/2024 Temperature 98.1 degrees Fahrenheit 09/02/2024 Oximetry 100 % 01/29/2024 Blood pressure diastolic 61 mm Hg 09/02/2024 Height 69 in 09/02/2024 Blood pressure systolic 95 mm Hg 09/02/2024 Weight 159 lbs 09/02/2024 BMI 23.48 kg/m2 09/02/2024 Encounters Encounter Location Date Provider Diagnosis Ari Hatch III, MD [address] [place] [address] [place] [phone] 11/22/2023 Ari Hatch Closed displaced comminuted fracture of shaft of left humerus, initial encounter S42.352A ; Chronic kidney disease, unspecified CKD stage N18.9 ; History of anemia Z86.2 ; Recurrent major depressive disorder, in partial remission F33.41 ; Benign prostatic hyperplasia with lower urinary tract symptoms N40.1 ; History of herniated intervertebral disc Z87.39 ; History of bilateral inguinal hernias Z87.19 and Recurrent major depressive disorder, in full remission F33.42 Ari Hatch III, MD [address] [place] [address] [place] [phone] 12/13/2023 Ari Hatch Closed displaced comminuted fracture of shaft of left humerus, initial encounter S42.352A ; History of bilateral inguinal hernias Z87.19 ; Decreased hearing, unspecified laterality H91.90 ; Chronic kidney disease, unspecified N18.9 ; Anemia in chronic kidney disease D63.1 ; Hyperlipidemia, unspecified hyperlipidemia type E78.5 ; Recurrent major depressive disorder, in partial remission F33.41 ; Benign prostatic hyperplasia with lower urinary tract symptoms N40.1 and History of herniated intervertebral disc Z87.39 Ari Hatch III, MD [address] [place] [address] [place] [phone] 01/29/2024 Ari Hatch Chronic kidney disea se, unspecified CKD stage N18.9 ; Benign prostatic hyperplasia with lower urinary tract symptoms N40.1 ; Anemia in chronic kidney disease D63.1 ; Recurrent major depressive disorder, in partial remission F33.41 ; History of herniated intervertebral disc Z87.39 and History of bilateral inguinal hernias Z87.19 Ari Hatch III, MD [address] [place] [address] [place] [phone] 04/29/2024 Ari Hatch History of anemia Z8 6.2 ; Benign prostatic hyperplasia with lower urinary tract symptoms N40.1 ; Hyperlipidemia, unspecified hyperlipidemia type E78.5 ; Chronic kidney disease, unspecified CKD stage N18.9 ; Recurrent major depressive disorder, in partial remission F33.41 ; History of herniated intervertebral disc Z87.39 ; Decreased hearing, unspecified laterality H91.90 ; History of bilateral inguinal hernias Z87.19 and Elevated PSA R97.20 Ari Hatch III, MD [address] [place] [address] [place] [phone] 09/02/2024 Ari Hatch Anemia in chronic ki dney disease D63.1 ; Chronic kidney disease, unspecified CKD stage N18.9 ; Dupuytren's contracture M72.0 ; History of anemia Z86.2 ; Recurrent major depressive disorder, in partial remission F33.41 ; Benign prostatic hyperplasia with lower urinary tract symptoms N40.1 ; History of herniated intervertebral disc Z87.39 ; Decreased hearing, unspecified laterality H91.90 and Elevated PSA R97.20 Ari Hatch III, MD [address] [place] [address] [place] [address] 12/07/2023 Ari Hatch III, MD [address] [place] [address] [place] [address] 12/07/2023 Ari Hatch III, MD [address] [place] [address] [place] [address] 01/17/2024 Ari Hatch Chronic kidney disea se, unspecified CKD stage N18.9 ; Recurrent major depressive disorder, in partial remission F33.41 ; Benign prostatic hyperplasia with lower urinary tract symptoms N40.1 ; Chronic kidney disease, unspecified N18.9 and Anemia in chronic kidney disease D63.1 Ari Hatch III, MD [address] [place] [address] [place] [address] 05/06/2024 Ari Hatch III, MD [address] [place] [address] [place] [address] 06/23/2024 Ari Hatch Benign prostatic hyperplasia with lower urinary tract symptoms N40.1 and Elevated PSA R97.20 Ari Hatch III, MD [address] [place] [address] [place] [address] 06/30/2024 Ari Hatch Elevated PSA R97.20 Ari Hatch III, MD [address] [place] [address] [place] [address] 08/04/2024 Ari Hatch Chronic kidney disea se, unspecified CKD stage N18.9 ; History of anemia Z86.2 ; Benign prostatic hyperplasia with lower urinary tract symptoms N40.1 ; Hyperlipidemia, unspecified hyperlipidemia type E78.5 and Elevated PSA R97.20 Ari Hatch III, MD [address] [place] [address] [place] [address] 08/01/2024 Ari Hatch Assessments Encounter Date Diagnosis (ICD Code) Assessment Notes Treat ment Notes Treatment Clinical Notes 11/22/2023 Chronic kidney disease, unspecified CKD stage (ICD-10 - N18.9) The BUN is 44, creatinine 2.17 and the glomerular filtration rate is 30. His renal function is stable. He is up-to-date with nephrology. 11/22/2023 Closed displaced comminuted fracture of shaft of left humerus, initial encounter (ICD-10 - S42.352A) He has an appointment with orthopedics nnext week. He will wear thee sling over the weekend. I have refilled his oxycodone as he has significant pain with range of motion of any kind. 12/13/2023 History of bilateral inguinal hernias (ICD-10 - Z87.19) The incisions are stable and he is asymptomatic. He is voiding severe heavy lifting. 12/13/2023 Closed displaced comminuted fracture of shaft of left humerus, initial encounter (ICD-10 - S42.352A) He continues to have moderate pain. He has been to orthopedics and has a follow-up appointment. He is able to do without the sling at this time. 01/29/2024 Benign prostatic hyperplasia with lower urinary tract symptoms (ICD-10 - N40.1) He arises from sleep about once a night to urinate. We have discussed lifestyle modification as a way to reduce nocturia. 01/29/2024 Chronic kidney disease, unspecified CKD stage (ICD-10 - N18.9) His renal function is stable. The BUN is unchanged and creatinine has improved slightly. He is up-to-date with nephrology. No change in his regimen is needed today. 04/29/2024 Benign prostatic hyperplasia with lower urinary tract symptoms (ICD-10 - N40.1) Eron bandages nocturia once or night. We have discussed lifestyle modification as a way to reduce nocturia. 04/29/2024 History of anemia (ICD-10 - Z86.2) He has a mild anemia of chronic renal failure which requires no treatment. 09/02/2024 Anemia in chronic kidney disease (ICD-10 - D63.1) He has a mild normochromic normocytic anemia of chronic renal disease. Treatment is not necessary at this time. 09/02/2024 Chronic kidney disease, unspecified CKD stage (ICD-10 - N18.9) His current BUN is 56 with a creatinine of 2.48. His GFR is slightly diminished. He remains under the care of nephrology. 01/17/2024 Chronic kidney disease, unspecified CKD stage (ICD-10 - N18.9) 11/22/2023 History of anemia (ICD-10 - Z86.2) He has had the anemia of chronic renal disease. His hematocrit has increased to a current value of 38.6, which gives him an excellent red cell mass. 12/13/2023 Decreased hearing, unspecified laterality (ICD-10 - H91.90) His hearing loss is stable and no change in his regimen was needed today. 01/29/2024 Anemia in chronic kidney disease (ICD-10 - D63.1) He has a mild anemia of chronic renal disease with a hematocrit of 35% that is normochromic and normocytic. No treatment is necessary at this time. 04/29/2024 Hyperlipidemia, unspecified hyperlipidemia type (ICD-10 - E78.5) His fasting lipid profile has been stable in its target range. 09/02/2024 Dupuytren's contracture (ICD-10 - M72.0) 1 tendon is mildly foreshortened. He is asymptomatic. 01/17/2024 Recurrent major depressive disorder, in partial remission (ICD-10 - F33.41) 06/23/2024 Benign prostatic hyperplasia with lower urinary tract symptoms (ICD-10 - N40.1) 06/30/2024 Elevated PSA (ICD-10 - R97.20) 08/04/2024 Chronic kidney disease, unspecified CKD stage (ICD-10 - N18.9) 11/22/2023 Recurrent major depressive disorder, in partial remission (ICD-10 - F33.41) There is a very pleasant today. His company was enjoyable. He made several suggestions to help a run my practice. He remains depressed, however. He has a new psychiatrist as Dr. Lizarraga has retired. There is consideration of using a ketamine derivative. 12/13/2023 Chronic kidney disease, unspecified (ICD-10 - N18.9) The current BUN and creatinine have increased. The BUN earlier this year was 40 and 44, now 58.Your creatinine was 2.17, then 2.48 and now 2.54. He was referred back to nephrology. 01/29/2024 Recurrent major depressive disorder, in partial remission (ICD-10 - F33.41) He and his psychiatrist or trying to optimize his antidepressant regimen.His depression currently feels slightly worse. He has the capacity to guaranntee is anxious not to harm himself. 04/29/2024 Chronic kidney disease, unspecified CKD stage (ICD-10 - N18.9) His renal function is stable. The BUN is unchanged and creatinine has improved slightly. He is up-to-date with nephrology. No change in his regimen is needed today. 09/02/2024 History of anemia (ICD-10 - Z86.2) He has a mild anemia of chronic renal failure which requires no treatment. 01/17/2024 Benign prostatic hyperplasia with lower urinary tract symptoms (ICD-10 - N40.1) 06/23/2024 Elevated PSA (ICD-10 - R97.20) 08/04/2024 History of anemia (ICD-10 - Z86.2) 11/22/2023 Benign prostatic hyperplasia with lower urinary tract symptoms (ICD-10 - N40.1) He rises from sleep once a night to urinate. We discussed lifestyle modification as a way to reduce nocturnal urinating. 12/13/2023 Anemia in chronic kidney disease (ICD-10 - D63.1) He has a mild anemia which is likely due to the chronic renal failure. He will be observed. No treatment is necessary. His current hematocrit is 32.7 with a mean cell volume 95.3. The platelet count which was low in the past, is now normal at 193. His white blood cell count is slightly low at 4200. The differentials unremarkable. These values will be observed. 01/29/2024 History of herniated intervertebral disc (ICD-10 - Z87.39) This is an old problem. He has occasional twinges of back pain and is avoiding heavy lifting. The problem is stable and does not require treatment this time. 04/29/2024 Recurrent major depressive disorder, in partial remission (ICD-10 - F33.41) He and his psychiatrist or trying to optimize his antidepressant regimen.His depression currently feels slightly worse. He has the capacity to guaranntee is anxious not to harm himself. 09/02/2024 Recurrent major depressive disorder, in partial remission (ICD-10 - F33.41) He and his psychiatrist or trying to optimize his antidepressant regimen.His depression currently feels slightly worse. He has the capacity to guaranntee is anxious not to harm himself. 01/17/2024 Chronic kidney disease, unspecified (ICD-10 - N18.9) 08/04/2024 Benign prostatic hyperplasia with lower urinary tract symptoms (ICD-10 - N40.1) 11/22/2023 History of herniated intervertebral disc (ICD-10 - Z87.39) This is an old problem. He has occasional twinges of back pain and is avoiding heavy lifting. The problem is stable and does not require treatment this time. 12/13/2023 Hyperlipidemia, unspecified hyperlipidemia type (ICD-10 - E78.5) A fastting profile has been ordered to be done with his next blood work. 01/29/2024 History of bilateral inguinal hernias (ICD-10 - Z87.19) The incisions are stable and he is asymptomatic. He is voiding severe heavy lifting. 04/29/2024 History of herniated intervertebral disc (ICD-10 - Z87.39) This is an old problem. He has occasional twinges of back pain and is avoiding heavy lifting. The problem is stable and does not require treatment this time. 09/02/2024 Benign prostatic hyperplasia with lower urinary tract symptoms (ICD-10 - N40.1) Eron bandages nocturia once or night. We have discussed lifestyle modification as a way to reduce nocturia. 01/17/2024 Anemia in chronic kidney disease (ICD-10 - D63.1) 08/04/2024 Hyperlipidemia, unspecified hyperlipidemia type (ICD-10 - E78.5) 11/22/2023 History of bilateral inguinal hernias (ICD-10 - Z87.19) The incisions are stable and he is asymptomatic. He is voiding severe heavy lifting. 12/13/2023 Recurrent major depressive disorder, in partial remission (ICD-10 - F33.41) He and his psychiatrist or trying to optimize his antidepressant regimen.His depression currently feels slightly worse. He has the capacity to guaranntee is anxious not to harm himself. 04/29/2024 Decreased hearing, unspecified laterality (ICD-10 - H91.90) His hearing loss is stable and no change in his regimen was needed today. 09/02/2024 History of herniated intervertebral disc (ICD-10 - Z87.39) This is an old problem. He has occasional twinges of back pain and is avoiding heavy lifting. The problem is stable and does not require treatment this time. 08/04/2024 Elevated PSA (ICD-10 - R97.20) 11/22/2023 Recurrent major depressive disorder, in full remission (ICD-10 - F33.42) He has a new psychiatrist. He has been compliant with all of his medications. His depression appears to be in remission. 12/13/2023 Benign prostatic hyperplasia with lower urinary tract symptoms (ICD-10 - N40.1) He rises from sleep once a night to urinate. We discussed lifestyle modification as a way to reduce nocturnal urinating. 04/29/2024 History of bilateral inguinal hernias (ICD-10 - Z87.19) The incisions are stable and he is asymptomatic. He is voiding severe heavy lifting. 09/02/2024 Decreased hearing, unspecified laterality (ICD-10 - H91.90) His hearing loss is stable and no change in his regimen was needed today. 12/13/2023 History of herniated intervertebral disc (ICD-10 - Z87.39) This is an old problem. He has occasional twinges of back pain and is avoiding heavy lifting. The problem is stable and does not require treatment this time. 04/29/2024 Elevated PSA (ICD-10 - R97.20) His PSA is 8.0. Free PSA has been requested. 09/02/2024 Elevated PSA (ICD-10 - R97.20) His PSA is 8.0. Free PSA has been requested. Plan Of Treatment Pending Test Test Name Order Date PROFILE, FASTING (COMPREHENSIVE METABOLI C) 04/29/2024 PROFILE, FASTING (COMPREHENSIVE METABOLI C) 08/04/2024 PROFILE, RANDOM (COMPREHENSIVE METABOLIC ) 09/02/2024 LIPID PANEL 08/04/2024 PSA, TOTAL 04/29/2024 CBC w DIFF 08/04/2024 BONE DENSITY DEXA 12/13/2023 CBC WITH AUTO DIFF 09/02/2024 CBC WITH AUTO DIFF 04/29/2024 Lipid Panel 04/29/2024 PSA Free and Total 08/04/2024 Next Appt Details Provider Name:Ari Hatch, 01/30/2025 02:00:00 PM, [address] [place] [address] A[place], [place], [address], Insurance Providers Payer Name Payer Address Payer Phone Subscriber Number Group Number Insured Name Patient Relationship to Insured Coverage Start Date Coverage End Date MEDICARE NGS [address] [place] [address] [id number] Todd Zavala Self - patient is the insured [facility] [address] [place], [place] [id number] Todd Zavala Self - patient is the insured Medical (General) History Medical History History ICD Code Anemia D64.9 Depression F32.9 Nocturia R35.1 Renal cyst Q61.00 Vertigo R42 1996 L3-4 herniated disc right side benign prostatic hypertrophy CKD (chronic kidney disease) N18.9 Inflamation of the lower eye lid Hearing loss Abilify caused abnormal movement of the jaw blepharitis Adenomatous polyp of colon 2022 Surgical History Surgery Date(Month/Year) inguinal hernia repair left 2017 inguinal hernia repair right 1994 dental surgery [address] harry No history Hospitalization History Reason Date(Month/Year) [facility] 03/2018 No history
[2024-11-03 14:50] LABS: Prostate Specific Antigen 9.18 ng/mL (<0.05-4.0)
== END 2024-11-03 12:43 | disposition home or self-care (01) ==
LOC: HO.10HDL 12:42
PROVIDERS: Visit Provider Urology
DX: Z12.5 Encounter for screening for malignant neoplasm of prostate (principal); R97.20 Elevated prostate specific antigen [PSA]
CPT/HCPCS: 36415; 84153

== ENCOUNTER 2025-01-20 12:45 | Outpatient (REF) | payer MEDICARE, SELFPAY ==
[2025-01-20 13:02] LABS: MANUAL DIFF FLAG NO
[2025-01-20 13:16] LABS: Basophils Percent Auto 0.7 % (0-2); Eosinophils Absolute Auto 0.1 X10*3/uL (0.0-0.4); Eosinophils Percent Auto 2.3 % (0-4); Hematocrit 35.7 % (42.0-52.0); Hemoglobin 11.9 g/dl (14.0-18.0); Imm Gran Abs Auto 0.02 X10*3/uL (0.00-0.03); Imm Gran Pct Auto 0.4 % (0.0-0.4); Lymphocytes Absolute Auto 1.5 X10*3/uL (1.2-4.9); Lymphocytes Percent Auto 26.6 % (20-40); Mean Corpuscular HGB Conc 33.3 g/dl (31.0-36.0); Mean Corpuscular Hemoglobin 31.6 pg (27.0-33.0); Mean Corpuscular Volume 94.9 fL (80.0-98.0); Mean Platelet Volume 11.3 fL (9.4-12.4); Monocytes Absolute Auto 0.6 X10*3/uL (0.1-1.2); Monocytes Percent Auto 10.2 % (2-11); Neutrophils Absolute Auto 3.4 x10*3/uL (2.0-8.3); Neutrophils Percent Auto 59.8 % (45-73); Platelet Count 176 X10*3/uL (160-400); Red Blood Count 3.76 X10*6/uL (4.60-5.80); Red Cell Distribution Width 14.6 % (11.0-16.0); White Blood Count 5.7 X10*3/uL (4.8-10.8)
[2025-01-20 13:58] LABS: Alanine Aminotransferase 20 U/L (0-40); Albumin Level 4.1 g/dL (3.5-5.0); Alkaline Phosphatase 80 U/L (39-117); Anion Gap 11 (12-20); Aspartate Amino Transferase 26 U/L (5-37); Bilirubin Total 0.4 mg/dL (0.0-1.0); Blood Urea Nitrogen 48 mg/dL (9-16); Calcium 9.4 mg/dL (8.4-10.2); Carbon Dioxide 25 mmol/L (22-29); Chloride 110 mmol/L (96-108); Estimated Glomerular Filt Rate 30; Glucose Random 90 mg/dL (60-115); Potassium 4.7 mmol/L (3.3-5.1); Sodium 141 mmol/L (135-145); Total Protein 7.5 g/dL (6.5-8.0)
--- OUTSIDE RECORDS SUMMARY | 2025-01-20 15:47 | XMS_ITS ---
Author Organization Ari Hatch III, MD Address [address] [place] [address] [place] [address] Care Team Providers Care Outbound Telemarketer Name Role Phone Ari Hatch Primary Care Provider REASON FOR VISIT ? changes to be made to his order from Dr Hatch Social History Sex Assigned At : Social History Observation Description Sex Assigned At Male Encounters Encounter Location Date Provider Diagnosis Ari Hatch III, MD [address] [place] [address] [place] [address] 08/04/2024 Ari Hatch Chronic kidney disea se, [...] Details Provider Name:Ari Hatch, 01/30/2025 02:00:00 PM, [address] [place] [address] [place], [place], [address], Progress Notes * Todd ZAVALA JDOB: [birth year] (79 yo M)Acc No.[id number]:08/04/2024 Patient:?Todd Zavala :1945???Age:79 Y???Sex:Male Address:[address] [place] [address], [place], [address] Subjective: * Chief Complaints: * ? changes [...] * Date:? Generated for Victor Manuel roth/Costa/Jose on:?01/20/2025 03:47 PM EST
--- OUTSIDE RECORDS SUMMARY | 2025-01-20 15:47 | XMS_ITS | Encounter Summary ---
Author Organization [facility] Address [address] [place] [address] Phone Care Team Providers Care Toe Sewer Name Role Phone Ari Hatch MD Primary Care Provider [phone] Encounter Details Date Type Department Care Team (Late st Contact Info) Description 01/15/2023 Telephone [facility] [address] [place] [address] Leigh Christopher MA Social History Tobacco Use Types Packs/Day Years Used Date Smoking Tobacco: Never Smokeless Tobacco: Never Alcohol Use Standard Drinks/Week Comments Not Asked 0 (1 standard drink = 0.6 oz pur e alcohol) Sex and Gender Information Value Date Recorded Sex Assigned at Not on file Legal Sex Male 4:52 PM EST Gender Identity Not on file Sexual Orientation Not on file documented as of this encounter Miscellaneous Notes * Telephone Encounter - Leigh Christopher MA - 01/15/2023 11:25 AM EST Pt called, he is having some concerns regarding restarting his lithium. He would like to speak withyou before making any decisions. Please call him back at [phone] Thank you documented in this encounter Plan of Treatment Not on file documented as of this encounter Visit Diagnoses Not on filedocumented in this encounter Care Teams Toe Sewer Relationship Specialty Start Date End Date Ari Hatch MD [address] [place] [address] [address] [place] PCP - General Medical Oncology 12/01/21 documented as of this encounter
--- OUTSIDE RECORDS SUMMARY | 2025-01-20 15:47 | XMS_ITS | Encounter Summary ---
Author Organization [facility] Address [address] [place] [address] Phone Care Team Providers Care Drier Attendant Name Role Phone Ari Hatch MD Primary Care Provider [phone] Encounter Details Date Type Department Care Team (Late st Contact Info) Description 02/11/2021 Orders Only [facility] [address] [place] [address] Provider, MD Zuri [address] [place] [address] Social History Tobacco Use Types Packs/Day Years Used Date Smoking Tobacco: Never Assessed Sex and Gender Information Value Date Recorded Sex Assigned at Not on file Legal Sex Male 4:52 PM EST Gender Identity Not on file Sexual Orientation Not on file COVID-19 Exposure Response Date Recorded In the last month, have you been in contact with someone who was confirmed or suspected to have Coronavirus / COVID-19? No / Unsure 02/03/2021 11:16 AM EDT documented as of this encounter Plan of Treatment Not on file documented as of this encounter Procedures Procedure Name Priority Date/Time Associated Diagnosis Comments EXT RESULT ENTRY Routine 02/11/2021 documented in this encounter Results * EXT RESULT ENTRY (02/11/2021) Historical Provider LAB BLOOD ORDERABLES Viri l Result documented in this encounter Visit Diagnoses Not on filedocumented in this encounter Care Teams Drier Attendant Relationship Specialty Start Date End Date Ari Hatch MD [facility] [address] [place] PCP - General Medical Oncology 12/01/21 documented as of this encounter
--- OUTSIDE RECORDS SUMMARY | 2025-01-20 15:47 | XMS_ITS | Clinical Summary ---
Author Organization [facility] Address [address] [place] [address] Phone Care Team Providers Care Machine Setter Supervisor Name Role Phone Ari Hatch MD Primary Care Provider [phone] Allergies No known active allergies Medications divalproex (DEPAKOTE) 250 MG 24 hr tablet Take 1 tablet by mouth 1 (one) time each day in the morning 3 tabs every night Active finasteride (PROSCAR) 5 MG tablet Take 1 tablet by mouth 1 (one) time each day Active tamsulosin (FLOMAX) 0.4 MG 24 hr capsule Take 1 capsule by mouth in the morning and 1 capsule in the evening. Active Vortioxetine HBr 20 MG tablet Take 10 mg by mouth 1 (one) time each day At bed time Active docusate sodium (COLACE) 100 MG capsule Take 100 mg by mouth in the morning and 100 mg in the evening. Active lamoTRIgine (LaMICtal) 25 MG tablet TAKE 1 TABLET BY MOUTH EVERY MORNING AND 2 TABLETS AT BEDTIME 08/07/2023 Active pramipexole (MIRAPEX) 0.125 MG tablet TAKE 1 TABLET BY MOUTH EVERY MORNING AND 2 AT BEDTIME 08/07/2023 Active Active Problems Problem Noted Date Diagnosed Date Anemia of chronic disease 05/17/2021 Chronic kidney disease 05/17/2021 Left inguinal hernia 07/24/2018 Bipolar affective disorder, currently manic, severe, with psychosis 04/01/2018 Family History Relation Status Comments Father Social History Tobacco Use Types Packs/Day Years Used Date Smoking Tobacco: Never Smokeless Tobacco: Never Tobacco Cessation:Counseling Given: Not Answered Alcohol Use Standard Drinks/Week Comments Not Asked 0 (1 standard drink = 0.6 oz pur e alcohol) Sex and Gender Information Value Date Recorded Sex Assigned at Not on file Legal Sex Male 4:52 PM EST Gender Identity Not on file Sexual Orientation Not on file Last Filed Vital Signs Vital Sign Reading Time Taken Comments Blood Pressure 124/65 08/20/2023 1:29 PM EDT Pulse 65 08/20/2023 1:29 PM EDT Temperature - - Respiratory Rate - - Oxygen Saturation 98% 08/20/2023 1:29 PM EDT Inhaled Oxygen Concentration - - Weight 71.6 kg (157 lb 12.8 oz) 08/20/2023 1:29 PM EDT Height - - Body Mass Index - - Plan of Treatment Health Maintenance Due Date Last Done Comments Pneumococcal Vaccine: 65+ Ye ars (1 of 2 - PCV) 1951 Influenza Vaccine (#1) 2024 Hepatitis B Vaccine Aged Out No longe r eligible based on patient's age to complete this topic Insurance [facility] MEDICARE [facility] Care Teams Machine Setter Supervisor Relationship Specialty Start Date End Date Ari Hatch MD [address] [place] [address] [address] [place], [place] PCP - General Medical Oncology 12/01/21
--- OUTSIDE RECORDS SUMMARY | 2025-01-20 15:48 | XMS_ITS ---
Author Organization Ari Hatch III, MD Address [address] [place] [address] Care Team Providers Care Art Objects Repairer Name Role Phone Ari Hatch Primary Care Provider [phone] Allergies Allergen (clinical drug ingredient) Drug/Non Drug [...] Date Provider Diagnosis Ari Hatch III, MD [address] [place] [address] [place] [address] 09/02/2024 Ari Hatch Anemia in chronic ki [...] check-up Provider Name:Ari Hatch, 01/30/2025 02:00:00 PM, [address] [place] [address] [place], [place], [address], Progress Notes * Todd ZAVALADOB: [birth year] (79 yo M)Acc No.[id number]:09/02/2024 Progress Notes Patient:?Todd ZAVALA Provider:?Ari Hatch MD :1945???Age:79 Y???Sex:Male Darvin e:09/02/2024 Address:[address] [place] [address], [phone] Subjective: * Chief Complaints: * ???CKDDepressionHearing loss [...] harry No history * Hospitalization/Major Diagno stic Procedure:?[facility] 03/2018No history * Family History:?Father: dece [...] well. His sister, Siobhan is a retired sorting cows worker and youth court judge. She has hypertension and she is overweight, Thyroid nodule, Benign gland. Uncle passed of throat cancer, Bladder cancer. * Social History:?Tobacco Use:?Tobacco Use/Smoking?Patient is a?nonsmoker ?Additional Findings: Tobacco Non-User?Aggressive non-smoker ???He was born in [facility]. He has been to [place] for [...] 0.000 (Ref Range: 0.0-0.012 X10*3/uL) * Lab:[facility] * Collection Date 08/29/2024 05/09/2023 01/10/2023 Collection [...] Hatch MD Date:?08/19 Generated for Printi ng/Faxing/eTransmitting on:?01/20/2025 03:47 PM EST History and Physical Notes * HPI (History of Present Illness) Category Sub-Category Detail Notes COVID-19 Screening Questions Have you had any new onset fever, chills, cough, congestion, sore throat, shortness of breath, muscle aches?: No Have you been exposed to the virus withi n the last 10 days?: No Have you travelled internationally in [facility] last 10 days?: No Have you been [...]
--- OUTSIDE RECORDS SUMMARY | 2025-01-20 15:48 | XMS_ITS | Patient Health Record ---
Author Organization Ari Hatch III, MD Address [address] [place] [address] Care Team Providers Care Retail Sales Advisor Name Role Phone Ari Hatch Primary Care Provider [phone] Allergies Allergen (clinical drug ingredient) Drug/Non Drug [...] 0.2 - 1.3 BLD Negative Negative - PSA Free and Total Reviewed date:07/06/2024 06:43:25 AM Interpretation: Performing Lab:[facility], [address] [place] [phone] Notes/Report: Prostate Specific Ag Total 9.1 < [...] 30 93 9 (3)Catalona et al.:SOFIE 277: 6802-1135 (1996) (4)Catalona et al.:SOFIE 279: 5581-4002 (1997) (x)These estimates vary with age, ethnicity, [...] of disease. THIS TEST WAS PERFORMED AT: [facility] [address] [place] [phone] ADAM ORLANDO MD Free Prostate Spec Ag 3.2 Complete Blood Count Auto Di ff Reviewed date:04/29/2024 10:20:34 AM Interpretation: Performing Lab:[facility], [address] [place] [phone] Notes/Report: White Blood Count 5.6 4.8-10.8 X10*3/uL [...] Panel Reviewed date:04/29/2024 10:20:34 AM Interpretation: Performing Lab:[facility], [address] [place] [phone] Notes/Report: Sodium 141 135-145 mmol/L Potassium 4.9 3.3-5.1 mmol/L Chloride 111 96-108 mmol/L Carbon Dioxide 22 22-29 mmol/L Anion Gap 13 12-20 Blood Urea Nitrogen 47 9-16 mg/dL Creatinine 2.39 0.5-1.4 mg/dL Estimated Glomerular Filt Rate 27 NOTE: For -Ivorian individuals, multiply the result by 1.210. Chronic [...] Total Reviewed date:05/03/2024 05:16:40 AM Interpretation: Performing Lab:[facility], [address] [place] [phone] Notes/Report: Prostate Specific Ag Total 8.0 < [...] 30 93 9 (3)Catalona et al.:SOFIE 277: 3920-8298 (1996) (4)Catalona et al.:SOFIE 279: 1234-7058 (1997) (x)These estimates vary with age, ethnicity, [...] of disease. THIS TEST WAS PERFORMED AT: [facility] [address] [address] ADAM ORLANDO MD Free Prostate Spec Ag 3.0 PSA Free and Total Reviewed date:07/06/2024 06:43:25 AM Interpretation: Performing Lab:[facility], [address] [facility], [place] [address] Notes/Report: Prostate Specific Ag Total 10.3 < [...] 30 93 9 (3)Catalona et al.:SOFIE 277: 6959-6986 (1996) (4)Catalona et al.:SOFIE 279: 6726-2988 (1997) (x)These estimates vary with age, ethnicity, [...] of disease. THIS TEST WAS PERFORMED AT: [facility] [address] [place] [phone] ADAM ORLANDO MD Free Prostate Spec Ag 3.5 US renal BI Reviewed date:09/01/2024 07:04:40 AM Interpretation: Performing Lab: Notes/Report: [address] [address] Ultrasound Report Signed Patient: Todd Zavala MR#: [id number] : 1945 Acct:[id number] Age/Sex: 79 / M ADM Date: 08/05/24 Loc: .US Attending Dr: Sam Killian MD Ordering Physician: Sam Killian MD Date of Service: 08/05/24 Procedure(s): US renal BI Accession Number(s): [id number] cc: Sam Killian MD; Ari Hatch MD EXAMINATION: US RETROPERITONEAL [...] 08/19/24 1436 DD/ 1130 TD/TT: 08/05/24 1130 Student Education Specialist: [address] [place] [address] Ultrasound Report Signed Patient: Clint Zavala MR#: [id number] : 1945 Acct:[id number] Age/Sex: 79 / M ADM Date: 08/05/24 Loc: HO.US Attending Dr: aSm Killian MD Ordering Physician: Sam Killian MD Date of Service: 08/05/24 Procedure(s): US sharon al BI Accession Number(s): [id number] cc: Sam Killian MD; Ari Hatch MD EXAMINATION: US RETROPERITONEAL [...] 08/19/24 1436 DD/ 1130 TD/TT: 08/05/24 1130 Student Education Specialist: Complete Blood Count Auto Di ff Reviewed date:09/01/2024 07:04:40 AM Interpretation: Performing Lab:[facility], [address] [place] [address] Notes/Report: COPY TO DR. KILLIAN ALSO COPY TO DR. ACKERMAN White Blood [...] NRBC Abs Auto 0.000 0.0-0.012 X10*3/uL Comprehensive [place]. Panel Fa st Reviewed date:09/01/2024 07:04:40 AM Interpretation: Performing Lab:[facility], [address] [place] [address] Notes/Report: COPY TO DR. KILLIAN ALSO COPY TO DR. ACKERMAN Sodium 141 135-145 mmol/L Potassium 4.3 3.3-5.1 mmol/L Chloride 110 96-108 mmol/L Carbon Dioxide 26 22-29 mmol/L Anion Gap 9 12-20 Blood Urea Nitrogen 56 9-16 mg/dL Creatinine 2.48 0.5-1.4 mg/dL Estimated Glomerular Filt Rate 25 NOTE: For -Ivorian individuals, multiply the result by 1.210. Chronic [...] Panel Reviewed date:09/01/2024 07:04:40 AM Interpretation: Performing Lab:[address] [address] Notes/Report: COPY TO DR. KILLIAN ALSO COPY TO DR. ACKERMAN Triglycerides 79 [...] Total Reviewed date:09/02/2024 11:50:09 AM Interpretation: Performing Lab:[address] [address] Notes/Report: COPY TO DR. KILLIAN ALSO COPY TO DR. ACKERMAN Prostate Specific [...] 30 93 9 (3)Catalona et al.:SOFIE 277: 5736-3270 (1996) (4)Catalona et al.:SOFIE 279: 5531-8148 (1997) (x)These estimates vary with age, ethnicity, [...] of disease. THIS TEST WAS PERFORMED AT: [facility] [address] [address] ADAM ORLANDO MD Free Prostate Spec Ag 3.7 Complete Blood Count Auto Di ff (Not yet reviewed by provider) Interpretation: Performing Lab:[facility], [address] [place] [phone] Notes/Report: White Blood Count 5.7 4.8-10.8 X10*3/uL Red Blood Count 3.76 4.60-5.80 X10*6/uL Hemoglobin 11.9 14.0-18.0 g/dl Hematocrit 35.7 42.0-52.0 % Mean Corpuscular Volume 94.9 80.0-98.0 fL Mean Corpuscular Hemoglobin 31.6 27.0-33.0 pg Mean Corpuscular HGB Conc 33.3 31.0-36.0 g/dl Red Cell Distribution Width 14.6 11.0-16.0 % Platelet Count 176 160-400 X10*3/uL Mean Platelet Volume 11.3 9.4-12.4 fL Neutrophils Percent Auto 59.8 45-73 % Imm Gran Pct Auto 0.4 0.0-0.4 % Lymphocytes Percent Auto 26.6 20-40 % Monocytes Percent Auto 10.2 2-11 % Eosinophils Percent Auto 2.3 0-4 % Basophils Percent Auto 0.7 0-2 % NRBC Pct Auto 0.0 0.0-0.2 /100WBC Neutrophils Absolute Auto 3.4 2.0-8.3 x10*3/uL Imm Gran Abs Auto 0.02 0.00-0.03 X10*3/uL Lymphocytes Absolute Auto 1.5 1.2-4.9 X10*3/uL Monocytes Absolute Auto 0.6 0.1-1.2 X10*3/uL Eosinophils Absolute Auto 0.1 0.0-0.4 X10*3/uL Basophils Absolute Auto 0.0 0.0-0.2 X10*3/uL NRBC Abs Auto 0.000 0.0-0.012 X10*3/uL Comprehensive Met. Panel (No t yet reviewed by provider) Interpretation: Performing Lab:[facility], [address] [place] [phone] Notes/Report: Sodium 141 135-145 mmol/L Potassium 4.7 3.3-5.1 mmol/L Chloride 110 96-108 mmol/L Carbon Dioxide 25 22-29 mmol/L Anion Gap 11 12-20 Blood Urea Nitrogen 48 9-16 mg/dL Creatinine 2.16 0.5-1.4 mg/dL Estimated Glomerular Filt Rate 30 Chronic Kidney Disease: Estimated GFR < 60 mL/min/1.73m2 Severe Kidney Disease: Estimated GFR < 15 mL/min/1.73m2 Glucose Random 90 60-115 mg/dL Calcium 9.4 8.4-10.2 mg/dL Bilirubin Total 0.4 0.0-1.0 mg/dL Aspartate Amino Transferase 26 5-37 U/L Alanine Aminotransferase 20 0-40 U/L Total Protein 7.5 6.5-8.0 g/dL Albumin Level 4.1 3.5-5.0 g/dL Alkaline Phosphatase 80 39-117 U/L Prostate Specific Antigen (N ot yet reviewed by provider) Interpretation: Performing Lab:[facility], [address] [place] [phone] Notes/Report: Prostate Specific Antigen 8.70 <0.05-4.0 ng/mL PSA methodology: Foreman Alinity i Chemiluminescent Microparticle Immunoassay (CMIA) Reason For Referral Reason Consult and Treat He aring Aid Adjustment Diagnosis 1 Hearing loss (H91.90 ) Referral Organization Ari Hatch III, MD Referring Provider First Name Ari Referring Provider Last Name Holden Referring Provider Speciality Internal M edicine Referred Provider [facility] er, Speech & Hearing General Notes Suri Llanos 2023 11:59:12 AM EDT > Referral Faxed [...] Problem Status W/U Status Risk Notes Problem 644924036 Anemia in chronic kidney disease (D63.1) Active confirmed He has a mil d normochromic normocytic anemia of chronic renal disease. Treatment is not necessary at this time. Problem 360130971 Chronic kidney disease, unspecified (N18.9) Active confirmed The current BUN and creatinine have increased. The BUN earlier this year was 40 and 44, now 58.Your creatinine was 2.17, then 2.48 and now 2.54. He was referred back to nephrology. Problem Hearing loss (51715589) Hearing loss (H91.90) Active confirmed Problem 793826528 Benign prostatic hyperplasia with lower urinary tract symptoms (N40.1) Active confirmed Eron bandages nocturia once or night. We have discussed lifestyle modification as a way to reduce nocturia. Problem 935130451 Elevated PSA (R97.20) Active confirmed His PSA is 8.0. Free PSA has been requested. Problem 120399291 Chronic kidney disease, unspecified CKD stage (N18.9) Active confirmed His current BU N is 56 with a creatinine of 2.48. His GFR is slightly diminished. He remains under the care of nephrology. Problem Hearing loss (99083216) Decreased hearing, unspecified laterality (H91.90) Active confirmed His hearing los s is stable and no change in his regimen was needed today. Problem 20729125 Recurrent major depressive disorder, in partial remission (F33.41) Active confirmed He and his psychiatrist or trying to optimize his antidepressant regimen.His depression currently feels slightly worse. He has the capacity to guaranntee is anxious not to harm himself. Problem 431075989 History of anemia (Z86.2) Active confirmed He has a mild anemia of chronic renal failure which requires no treatment. Problem 902373114 History of herniated intervertebral disc (Z87.39) Active confirmed This is an old problem. He has occasional twinges of back pain and is avoiding heavy lifting. The problem is stable and does not require treatment this time. Problem 210178004 History of bilateral inguinal hernias (Z87.19) Active [...] Date Provider Diagnosis Ari Hatch III, MD [address] [place] [address] [place] [address] 01/29/2024 Ari Hatch Chronic kidney disea se, unspecified CKD stage N18.9 ; Benign prostatic hyperplasia with lower urinary tract symptoms N40.1 ; Anemia in chronic kidney disease D63.1 ; Recurrent major depressive disorder, in partial remission F33.41 ; History of herniated intervertebral disc Z87.39 and History of bilateral inguinal hernias Z87.19 Ari Hatch III, MD [address] [place] [address] [place] [address] 04/29/2024 Ari Hatch History of anemia Z8 [...] Elevated PSA R97.20 Ari Hatch III, MD [address] [place] [address] [place] [address] 09/02/2024 Ari Hatch Anemia in chronic ki [...] Elevated PSA R97.20 Ari Hatch III, MD [address] [place] [address] [place] [address] 05/06/2024 Ari Hatch III, MD [address] [place] [address] [place] [address] 06/23/2024 Ari Hatch Benign prostatic hyperplasia with lower urinary tract symptoms N40.1 and Elevated PSA R97.20 Ari Hatch III, MD [address] [place] [address] [place] [address] 06/30/2024 Ari Hatch Elevated PSA R97.20 Ari Hatch III, MD [address] [place] [address] [place] [address] 08/04/2024 Ari Hatch Chronic kidney disea se, unspecified CKD stage N18.9 ; History of anemia Z86.2 ; Benign prostatic hyperplasia with lower urinary tract symptoms N40.1 ; Hyperlipidemia, unspecified hyperlipidemia type E78.5 and Elevated PSA R97.20 Ari Hatch III, MD [address] [place] [address] [place] [address] 08/01/2024 Ari Hatch Assessments Encounter Date Diagnosis (ICD Code) Assessment Notes Treat ment Notes Treatment Clinical Notes 01/29/2024 Benign prostatic hyperplasia with lower urinary [...] He remains under the care of nephrology. 01/29/2024 Anemia in chronic kidney disease (ICD-10 [...] tendon is mildly foreshortened. He is asymptomatic. 06/23/2024 Benign prostatic hyperplasia with lower urinary tract symptoms (ICD-10 - N40.1) 06/30/2024 Elevated PSA (ICD-10 - R97.20) 08/04/2024 Chronic kidney disease, unspecified CKD stage (ICD-10 - N18.9) 01/29/2024 Recurrent major depressive disorder, in partial [...] chronic renal failure which requires no treatment. 06/23/2024 Elevated PSA (ICD-10 - R97.20) 08/04/2024 History of anemia (ICD-10 - Z86.2) 01/29/2024 History of herniated intervertebral disc (ICD-10 [...] guaranntee is anxious not to harm himself. 08/04/2024 Benign prostatic hyperplasia with lower urinary tract symptoms (ICD-10 - N40.1) 01/29/2024 History of bilateral inguinal hernias (ICD-10 [...] modification as a way to reduce nocturia. 08/04/2024 Hyperlipidemia, unspecified hyperlipidemia type (ICD-10 - E78.5) 04/29/2024 Decreased hearing, unspecified laterality (ICD-10 - [...] time. 08/04/2024 Elevated PSA (ICD-10 - R97.20) 04/29/2024 History of bilateral inguinal hernias (ICD-10 - Z87.19) The incisions are stable and he is asymptomatic. He is voiding severe heavy lifting. 09/02/2024 Decreased hearing, unspecified laterality (ICD-10 - H91.90) His hearing loss is stable and no change in his regimen was needed today. 04/29/2024 Elevated PSA (ICD-10 - R97.20) His [...] DENSITY DEXA 12/13/2023 CBC WITH AUTO DIFF 04/29/2024 CBC WITH AUTO DIFF 09/02/2024 Complete Blood Count Auto Diff Comprehensive Met. Panel 01/20/2025 Lipid Panel 04/29/2024 PSA Free and Total 08/04/2024 Prostate Specific Antigen 01/20/2025 Next Appt Details Provider Name:Ari Jaderne, 01/30/2025 02:00:00 PM, [address] [place] [address] , [facility] [place], [place], [address], Insurance Providers Payer Name Payer Address Payer Phone Subscriber Number Group Number Insured Name Patient Relationship to Insured Coverage Start Date Coverage End Date MEDICARE NGS [address] [place] [address] [id number] Todd Zavala Self - patient is the insured [facility] [address] [place], [place] [id number] Todd Zavala Self - patient is [...] harry No history Hospitalization History Reason Date(Month/Year) [facility] 03/2018 No history
--- OUTSIDE RECORDS SUMMARY | 2025-01-20 15:48 | XMS_ITS | Clinical Summary ---
Author Organization [facility] Address [address] [place] [address] Care Team Providers Care Insole And Outsole Preparer Name Role Phone Unavailable Primary Care Provider Unavailabl e Social History Tobacco Use Types Packs/Day Years Used Date Smoking Tobacco: Never Assessed Sex and Gender Information Value Date Recorded Sex Assigned at Not on file Legal Sex Male 10:28 PM EST Gender Identity Not on file Sexual Orientation Not on file Plan of Treatment Health Maintenance Due Date Last Done Comments DTaP,Tdap,and Td Vaccines (1 - Tdap) 1966 Pneumococcal Vaccine: 50+ Ye ars (1 of 1 - PCV) 1997 Zoster Vaccines (1 of 2) 1997 RSV Immunization Patients 60 + Years Old (1 - 1-dose 75+ series) 2022 COVID-19 Vaccine ( - 2023-2 5 season) 2024 Influenza Vaccine (#1) 2024 HIB Vaccines Aged Out No longer eligi ble based on patient's age to complete this topic HPV Vaccines Aged Out No longer eligi ble based on patient's age to complete this topic Hepatitis A Vaccines Aged Out No long er eligible based on patient's age to complete this topic Hepatitis B Vaccines Aged Out No long er eligible based on patient's age to complete this topic IPV Vaccines Aged Out No longer eligi ble based on patient's age to complete this topic MMR Vaccines Aged Out No longer eligi ble based on patient's age to complete this topic Meningococcal ACWY Vaccine Aged Out N o longer eligible based on patient's age to complete this topic Meningococcal B Vacine Aged Out No lo nger eligible based on patient's age to complete this topic RSV Immunization Patients Un leigh 20 months Aged Out No longer eligible b ased on patient's age to complete this topic Varicella Vaccines Aged Out No longer eligible based on patient's age to complete this topic
--- OUTSIDE RECORDS SUMMARY | 2025-01-20 15:48 | XMS_ITS ---
Author Organization Ari Hatch III, MD Address [address] [place] [address] [place] [address] Care Team Providers Care Glazier Artist Name Role Phone Ari Hatch Primary Care Provider REASON FOR VISIT Prostate F/U Info Social History Sex Assigned At : Social History Observation Description Sex Assigned At Male Encounters Encounter Location Date Provider Diagnosis Ari Hatch III, MD [address] [place] [address] [place] [address] 08/01/2024 Ari Hatch Plan Of Treatment Next Appt Details Provider Name:Ari Hatch, 01/30/2025 02:00:00 PM, [address] [place] [address] [address] [place] [facility], [address], Progress Notes * Todd ZAVALADOB: [birth year] (79 yo M)Acc No.[id number]:08/01/2024 Patient:?Todd Zavala :1945???Age:79 Y???Sex:Male Address:[place], [address] * true * Date:? Generated for Printi ng/Faesag/eTransmitting on:?01/20/2025 03:47 PM EST
== END 2025-01-20 12:46 | disposition home or self-care (01) ==
LOC: HO.10HDL 12:45
PROVIDERS: Referring Provider Urology; Visit Provider Internal Medicine Medical Oncology
DX: Z12.5 Encounter for screening for malignant neoplasm of prostate (principal); D63.1 Anemia in chronic kidney disease
CPT/HCPCS: 36415; 80053; 84153; 85025

== ENCOUNTER 2025-01-26 10:54 | Outpatient (AMB) | payer MEDICARE, SELFPAY ==
[2025-01-26 10:59] VITALS: BP 108/62; PULSE 79; O2SAT 98; BMI 22.8
--- NOTE | 2025-01-26 10:59 | HO.NEPHOV_ITS ---
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: No Accompanied by: Self / Same As Patient Allergies No Known Allergies Allergy (Verified 01/26/25 11:01) Medication List - Last Reconciled 01/26/25 by Sam Killian MD [Colace 100 mg] divalproex ER 1,000 mg PO BEDTIME lamotrigine 75 mg PO DAILY [multivitamin ] pramipexole 0.25 mg PO QPM tamsulosin 0.4 mg PO .nightly vortioxetine (Trintellix) 10 mg PO BEDTIME HPI Comments Details: 79 yr old man with a h/o [place] use in the past with CKD Here for semi annual follow up Baseline cr is 2.1 Bumped to 2.5 last month and returned to 2.15 No new issues Recent elevation in PSA Being followed by urology- Had MRI 01/26/25 No new issues PFSH Medical History Anemia BPH (benign prostatic hyperplasia) Depression CRI (chronic renal insufficiency) Surgical History H/O inguinal hernia repair H/O colonoscopy Family History Brother Chronic kidney disease Atrial fibrillation Obesity Osteoarthritis Mother Atrial fibrillation Stroke Social History Alcohol intake: current Patient Tobacco Use Status: Never used Tobacco Current occupational status: retired Current occupation: right hand dominant Physical Exam Vital Signs: BMI result Body Mass Index 22.8 Const General: comfortable; No acute distress Orientation/consciousness: patient oriented x3 Eyes General: appearance normal, both eyes and all related structures Visual [place]: normal visual [place] by confrontation Neck Neck: Yes supple and Yes no JVD Resp Effort & Inspection: normal respiratory effort and respiratory effort not decreased Auscultation: rhonchi Cardio Palpation: no palpable S3 and no palpable S4 Heart sounds: no rubs GI Inspection: Yes normal to inspection Palpation (GI): Soft to palpation Percussion: Yes normal to percussion Auscultation: normal bowel sounds General: Yes no CVA tenderness Back/Spine/Pelvis Back: no CVA tenderness Skin General skin exam: no petechiae and no purpura Neuro General: patient oriented x3 and no focal motor deficits Extrem General: No clubbing and No edema Results Reviewed Nephrology Results: Hgb 11.9 g/dl (14.0-18.0) L 01/20/25 WBC 5.7 X10*3/uL (4.8-10.8) 01/20/25 Plt Count 176 X10*3/uL (160-400) 01/20/25 Sodium 141 mmol/L (135-145) 01/20/25 Potassium 4.7 mmol/L (3.3-5.1) 01/20/25 Chloride 110 mmol/L (96-108) H 01/20/25 Carbon Dioxide 25 mmol/L (22-29) 01/20/25 BUN 48 mg/dL (9-16) H 01/20/25 Creatinine 2.16 mg/dL (0.5-1.4) H 01/20/25 Calcium 9.4 mg/dL (8.4-10.2) 01/20/25 Renal US 08/05/24 Assessment & Plan Assessment & Plan (1) CRI (chronic renal insufficiency): Code(s): N18.9 - Chronic kidney disease, unspecified Category: Medical (2) Renal cyst: Code(s): N28.1 - Cyst of kidney, acquired Category: Medical Plan 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 in the past Renal function is stable Continue to avoid nephrotoxins including NSAIDS s/p Mild hyperkalemia Stay on low K diet Recent K was normal Mild stable anemia No indication for OLIVIER BP is acceptable h/o Renal cyst follow renal ultrasound in jul 2024 shows benign cysts- No follow up recommended Orders: Orders Comprehensive Met. Panel 6 Months N18.9 - Chronic kidney disease, unspecified Creatinine Urine 6 Months N18.9 - Chronic kidney disease, unspecified Complete Blood Count no Diff 6 Months N18.9 - Chronic kidney disease, unspecified UA and rflx microscopic 6 Months N18.9 - Chronic kidney disease, unspecified Total Protein Urine Random 6 Months N18.9 - Chronic kidney disease, unspecified Parathyroid Hormone Intact 6 Months N18.9 - Chronic kidney disease, unspecified Coding Level of Care Code Est Pt Level 4 (04414) Diagnoses CRI (chronic renal insufficiency) N18.9 Renal cyst N28.1
--- OUTSIDE RECORDS SUMMARY | 2025-01-26 12:19 | XMS_ITS | Encounter Summary ---
Author Organization [facility] Address [address] [place] [address] Phone Care Team Providers Care Contact Centre Supervisor Name Role Phone Ari Hatch MD Primary Care Provider [phone] Encounter Details Date Type Department Care Team (Late st Contact Info) Description 02/11/2021 Orders Only [facility] [address] [place] [address] Provider, MD Zuri [address] [place] [address] Social History Tobacco Use Types Packs/Day [...] on filedocumented in this encounter Care Teams Contact Centre Supervisor Relationship Specialty Start Date End Date Ari Hatch MD [facility] [address] [place] PCP - General Medical Oncology 12/01/21 documented as of this encounter
--- OUTSIDE RECORDS SUMMARY | 2025-01-26 12:20 | XMS_ITS | Clinical Summary ---
Author Organization [facility] Address [address] [place] [address] Phone Care Team Providers Care Statistical Developer Name Role Phone Ari Hatch MD Primary Care Provider [phone] Allergies No known active allergies Medications divalproex [...] patient's age to complete this topic Insurance [facility] MEDICARE [facility] MEDICARE Care Teams Statistical Developer Relationship Specialty Start Date End Date Ari Hatch MD [address] [place] [address] [address] [place], [place] PCP - General Medical Oncology 12/01/21
--- OUTSIDE RECORDS SUMMARY | 2025-01-26 12:20 | XMS_ITS | Patient Health Record ---
Author Organization Ari Hatch III, MD Address [address] [place] [address] Care Team Providers Care Commercial Light Fixture Assembler Name Role Phone Ari Hatch Primary Care [...] Total Reviewed date:07/06/2024 06:43:25 AM Interpretation: Performing Lab:[facility], [address] [place] [address] Notes/Report: Prostate Specific Ag Total 9.1 < [...] 30 93 9 (3)Catalona et al.:SOFIE 277: 5264-2184 (1996) (4)Catalona et al.:SOFIE 279: 2782-1483 (1997) (x)These estimates vary with age, ethnicity, [...] mind. PSA was performed using the Leonard Ecorse Immunoassay method. Values obtained from different assay methods cannot be used interchangeably. PSA levels, regardless of value, should not be interpreted as absolute evidence of the presence or absence of disease. THIS TEST WAS PERFORMED AT: [facility] [address] [place] [phone] ADAM ORLANDO MD Free Prostate Spec Ag 3.2 Complete Blood Count Auto Di ff Reviewed date:04/29/2024 10:20:34 AM Interpretation: Performing Lab:[facility], [address] [place] [address] Notes/Report: White Blood Count 5.6 4.8-10.8 X10*3/uL [...] Panel Reviewed date:04/29/2024 10:20:34 AM Interpretation: Performing Lab:[facility], [address] [place] [address] Notes/Report: Sodium 141 135-145 mmol/L Potassium 4.9 3.3-5.1 mmol/L Chloride 111 96-108 mmol/L Carbon Dioxide 22 22-29 mmol/L Anion Gap 13 12-20 Blood Urea Nitrogen 47 9-16 mg/dL Creatinine 2.39 0.5-1.4 mg/dL Estimated Glomerular Filt Rate 27 NOTE: For -Mongolian individuals, multiply the result by 1.210. Chronic [...] Total Reviewed date:05/03/2024 05:16:40 AM Interpretation: Performing Lab:[facility], [address] [place] [address] Notes/Report: Prostate Specific Ag Total 8.0 < [...] 30 93 9 (3)Catalona et al.:SOFIE 277: 4520-8268 (1996) (4)Catalona et al.:SOFIE 279: 0231-0665 (1997) (x)These estimates vary with age, ethnicity, [...] of disease. THIS TEST WAS PERFORMED AT: [facility] [address] [address] ADAM ORLANDO MD Free Prostate Spec Ag 3.0 PSA Free and Total Reviewed date:07/06/2024 06:43:25 AM Interpretation: Performing Lab:[facility], [address] [facility], [place] [address] Notes/Report: Prostate Specific Ag Total 10.3 < [...] 30 93 9 (3)Catalona et al.:SOFIE 277: 6665-2051 (1996) (4)Catalona et al.:SOFIE 279: 0276-5143 (1997) (x)These estimates vary with age, ethnicity, [...] of disease. THIS TEST WAS PERFORMED AT: [facility] [address] [place] [phone] ADAM ORLANDO MD Free Prostate Spec Ag 3.5 US renal BI Reviewed date:09/01/2024 07:04:40 AM Interpretation: Performing Lab: Notes/Report: [address] [address] Ultrasound Report Signed Patient: Todd Zavala MR#: [id number] : 1945 Acct:[id number] Age/Sex: 79 / M ADM Date: 08/05/24 Loc: .US Attending Dr: Sam Killian MD Ordering Physician: Sam Killian MD Date of Service: 08/05/24 Procedure(s): US renal BI Accession Number(s): [id number] cc: Sam Killian MD; Ari Hatch MD [...] 08/19/24 1436 DD/ 1130 TD/TT: 08/05/24 1130 Manager Shell: [address] [place] [address] Ultrasound Report Signed Patient: Clint Zavala MR#: [id number] : 1945 Acct:[id number] Age/Sex: 79 / M ADM Date: 08/05/24 Loc: HO.US Attending Dr: Sam Killian MD Ordering Physician: Sam Killian MD Date of Service: 08/05/24 Procedure(s): US sharon al BI Accession Number(s): [id number] cc: Sam Killian MD; Ari Hatch MD [...] 08/19/24 1436 DD/ 1130 TD/TT: 08/05/24 1130 Manager Shell: Complete Blood Count Auto Di ff Reviewed date:09/01/2024 07:04:40 AM Interpretation: Performing Lab:[facility], [address] [place] [address] Notes/Report: COPY TO DR. KILLIAN ALSO COPY [...] NRBC Abs Auto 0.000 0.0-0.012 X10*3/uL Comprehensive [place]. Panel Fa st Reviewed date:09/01/2024 07:04:40 AM Interpretation: Performing Lab:[facility], [address] [place] [address] Notes/Report: COPY TO DR. KILLIAN ALSO COPY TO DR. ACKERMAN Sodium 141 135-145 mmol/L Potassium 4.3 3.3-5.1 mmol/L Chloride 110 96-108 mmol/L Carbon Dioxide 26 22-29 mmol/L Anion Gap 9 12-20 Blood Urea Nitrogen 56 9-16 mg/dL Creatinine 2.48 0.5-1.4 mg/dL Estimated Glomerular Filt Rate 25 NOTE: For -Mongolian individuals, multiply the result by 1.210. Chronic [...] Panel Reviewed date:09/01/2024 07:04:40 AM Interpretation: Performing Lab:[address] [address] Notes/Report: COPY TO DR. KILLIAN ALSO COPY [...] Total Reviewed date:09/02/2024 11:50:09 AM Interpretation: Performing Lab:[address] [address] Notes/Report: COPY TO DR. KILLIAN ALSO COPY [...] 30 93 9 (3)Catalona et al.:SOFIE 277: 8794-3859 (1996) (4)Catalona et al.:SOFIE 279: 8803-6540 (1997) (x)These estimates vary with age, ethnicity, [...] mind. PSA was performed using the Leonard Ecorse Immunoassay method. Values obtained from different assay methods cannot be used interchangeably. PSA levels, regardless of value, should not be interpreted as absolute evidence of the presence or absence of disease. THIS TEST WAS PERFORMED AT: [facility] [address] [address] ADAM ORLANDO MD Free Prostate Spec Ag 3.7 Complete Blood Count Auto Di ff (Not yet reviewed by provider) Interpretation: Performing Lab:[facility], [address] [place] [address] Notes/Report: White Blood Count 5.7 4.8-10.8 X10*3/uL [...] t yet reviewed by provider) Interpretation: Performing Lab:[facility], [address] [place] [address] Notes/Report: Sodium 141 135-145 mmol/L Potassium 4.7 [...] ot yet reviewed by provider) Interpretation: Performing Lab:[facility], [address] [place] [address] Notes/Report: Prostate Specific Antigen 8.70 <0.05-4.0 ng/mL PSA methodology: Foreman Alinity i Chemiluminescent Microparticle Immunoassay (CMIA) Reason For Referral Reason Consult and Treat He aring Aid Adjustment Diagnosis 1 Hearing loss (H91.90 ) Referral Organization Ari Hatch III, MD Referring Provider First Name Ari Referring Provider Last Name Holden Referring Provider Speciality Internal M edicine Referred Provider [facility] er, Speech & Hearing General Notes [...] Problem Status W/U Status Risk Notes Problem 952459573 Anemia in chronic kidney disease (D63.1) Active confirmed He has a mil d normochromic normocytic anemia of chronic renal disease. Treatment is not necessary at this time. Problem 444022442 Chronic kidney disease, unspecified (N18.9) Active confirmed The current BUN and creatinine have increased. The BUN earlier this year was 40 and 44, now 58.Your creatinine was 2.17, then 2.48 and now 2.54. He was referred back to nephrology. Problem Hearing loss (70741705) Hearing loss (H91.90) Active confirmed Problem 102721723 Benign prostatic hyperplasia with lower urinary tract symptoms (N40.1) Active confirmed Eron bandages nocturia once or night. We have discussed lifestyle modification as a way to reduce nocturia. Problem 990194756 Elevated PSA (R97.20) Active confirmed His PSA is 8.0. Free PSA has been requested. Problem 109096563 Chronic kidney disease, unspecified CKD stage (N18.9) Active confirmed His current BU N is 56 with a creatinine of 2.48. His GFR is slightly diminished. He remains under the care of nephrology. Problem Hearing loss (63631926) Decreased hearing, unspecified laterality (H91.90) Active confirmed His hearing los s is stable and no change in his regimen was needed today. Problem 13686739 Recurrent major depressive disorder, in partial remission (F33.41) Active confirmed He and his psychiatrist or trying to optimize his antidepressant regimen.His depression currently feels slightly worse. He has the capacity to guaranntee is anxious not to harm himself. Problem 596406571 History of anemia (Z86.2) Active confirmed He has a mild anemia of chronic renal failure which requires no treatment. Problem 616097324 History of herniated intervertebral disc (Z87.39) Active confirmed This is an old problem. He has occasional twinges of back pain and is avoiding heavy lifting. The problem is stable and does not require treatment this time. Problem 021906764 History of bilateral inguinal hernias (Z87.19) Active [...] Date Provider Diagnosis Ari Hatch III, MD [address] [place] [address] [place] [address] 01/29/2024 Ari Hatch Chronic kidney disea se, unspecified CKD stage N18.9 ; Benign prostatic hyperplasia with lower urinary tract symptoms N40.1 ; Anemia in chronic kidney disease D63.1 ; Recurrent major depressive disorder, in partial remission F33.41 ; History of herniated intervertebral disc Z87.39 and History of bilateral inguinal hernias Z87.19 Ari Hatch III, MD [address] [place] [address] [place] [address] 04/29/2024 Ari Hatch History of anemia Z8 [...] Elevated PSA R97.20 Ari Hatch III, MD [address] [place] [address] [place] [address] 09/02/2024 Ari Hatch Anemia in chronic ki [...] Elevated PSA R97.20 Ari Hatch III, MD [address] [place] [address] [place] [address] 05/06/2024 Ari Hatch III, MD [address] [place] [address] [place] [address] 06/23/2024 Ari Hatch Benign prostatic hyperplasia with lower urinary tract symptoms N40.1 and Elevated PSA R97.20 Ari Hatch III, MD [address] [place] [address] [place] [address] 06/30/2024 Ari Hatch Elevated PSA R97.20 Ari Hatch III, MD [address] [place] [address] [place] [address] 08/04/2024 Ari Hatch Chronic kidney disea se, unspecified CKD stage N18.9 ; History of anemia Z86.2 ; Benign prostatic hyperplasia with lower urinary tract symptoms N40.1 ; Hyperlipidemia, unspecified hyperlipidemia type E78.5 and Elevated PSA R97.20 Ari Hatch III, MD [address] [place] [address] [place] [address] 08/01/2024 Ari Hatch Assessments Encounter Date Diagnosis [...] DIFF 09/02/2024 CBC WITH AUTO DIFF 04/29/2024 Complete Blood Count Auto Diff Comprehensive Met. Panel 01/20/2025 Lipid Panel 04/29/2024 PSA Free and Total 08/04/2024 Prostate Specific Antigen 01/20/2025 Next Appt Details Provider Name:Ari Jaderne, 01/30/2025 02:00:00 PM, [address] [place] [address] , [place], [place], [address], Insurance Providers Payer Name Payer Address Payer Phone Subscriber Number Group Number Insured Name Patient Relationship to Insured Coverage Start Date Coverage End Date MEDICARE NGS [address] [place] [address] [id number] Todd Zavala Self - patient is the insured [facility] [address] [place], [place] [id number] Todd Zavala Self - patient is [...] harry No history Hospitalization History Reason Date(Month/Year) [facility] 03/2018 No history
--- OUTSIDE RECORDS SUMMARY | 2025-01-26 12:20 | XMS_ITS ---
Author Organization Ari Hatch III, MD Address [address] [place] [address] [place] [address] Care Team Providers Care Computer Repair Technician Name Role Phone Ari Hatch Primary Care Provider [phone] REASON FOR VISIT Prostate F/U Info Social History Sex Assigned At : Social History Observation Description Sex Assigned At Male Encounters Encounter Location Date Provider Diagnosis Ari Hatch III, MD [address] [place] [address] [place] [address] 08/01/2024 Ari Hatch Plan Of Treatment Next Appt Details Provider Name:Ari Hatch, 01/30/2025 02:00:00 PM, [address] [place] [address] [address] [facility] [place], [address], Progress Notes * Todd ZAVALADOB: [birth year] (79 yo M)Acc No.[id number]:08/01/2024 Patient:?Todd Zavala :1945???Age:79 Y???Sex:Male Address:[place], [address] * true * Date:? Generated for Printi ng/Faxing/eTransmitting on:?01/26/2025 12:19 PM EDT
--- OUTSIDE RECORDS SUMMARY | 2025-01-26 12:20 | XMS_ITS | Encounter Summary ---
Author Organization [facility] Address [address] [place] [address] Phone Care Team Providers Care Director Camp Name Role Phone Ari Hatch MD Primary Care Provider [phone] Encounter Details Date Type Department Care Team (Late st Contact Info) Description 01/15/2023 Telephone [facility] [address] [place] [address] Leigh Christopher [place] Social History Tobacco [...] any decisions. Please call him back at [phone] Thank you documented in this encounter Plan of Treatment Not on file documented as of this encounter Visit Diagnoses Not on filedocumented in this encounter Care Teams Director Camp Relationship Specialty Start Date End Date Ari Hatch MD [address] [place] [address] [address] [place] PCP - General Medical Oncology 12/01/21 documented as of this encounter
--- OUTSIDE RECORDS SUMMARY | 2025-01-26 12:20 | XMS_ITS | Clinical Summary ---
Author Organization [facility] ity Address [address] [place] [address] Care Team Providers Care Kitchen Designer Name Role Phone Unavailable Primary Care Provider [...]
--- OUTSIDE RECORDS SUMMARY | 2025-01-26 12:20 | XMS_ITS ---
Author Organization Ari Hatch III, MD Address [address] [place] [address] Care Team Providers Care Change Management Lead Name Role Phone Ari Hatch Primary Care [...] Date Provider Diagnosis Ari Hatch III, MD [address] [place] [address] [place] [address] 09/02/2024 Ari Hatch Anemia in chronic ki [...] check-up Provider Name:Ari Hatch, 01/30/2025 02:00:00 PM, [address] [place] [address] [address], [place], [address], Progress Notes * Todd ZAVALADOB: [birth year] (79 yo M)Acc No.[id number]:09/02/2024 Progress Notes Patient:?Todd ZAVALA Provider:?Ari Hatch MD :1945???Age:79 Y???Sex:Male Darvin e:09/02/2024 Address:[address] [place] [address], [place]FD-[id number] Subjective: * Chief Complaints: * ???CKDDepressionHearing loss [...] harry No history * Hospitalization/Major Diagno stic Procedure:?[facility] 03/2018No history * Family History:?Father: dece [...] well. His sister, Siobhan is a retired die engraver and dog show judge. She has hypertension and she is overweight, Thyroid nodule, Benign gland. Uncle passed of throat cancer, Bladder cancer. * Social History:?Tobacco Use:?Tobacco Use/Smoking?Patient is a?nonsmoker ?Additional Findings: Tobacco Non-User?Aggressive non-smoker ???He was born in [facility]. He has been to [place] for several [...] Hatch MD Date:?08/19 Generated for Printi ng/Faxing/eTransmitting on:?01/26/2025 12:20 PM EDT History and Physical Notes * HPI (History of Present Illness) Category Sub-Category Detail Notes COVID-19 Screening Questions Have you had any new onset fever, chills, cough, congestion, sore throat, shortness of breath, muscle aches?: No Have you been exposed to the virus withi n the last 10 days?: No Have you travelled internationally in [facility] last 10 days?: No Have you [...]
--- OUTSIDE RECORDS SUMMARY | 2025-01-26 12:20 | XMS_ITS ---
Author Organization Ari Hatch III, MD Address [address] [place] [address] [place] [address] Care Team Providers Care Host/Hostess Ground Name Role Phone Ari Hatch Primary Care Provider [phone] REASON FOR VISIT ? changes to be made to his order from Dr Hatch Social History Sex Assigned At : Social History Observation Description Sex Assigned At Male Encounters Encounter Location Date Provider Diagnosis Ari Hatch III, MD [address] [place] [address] [place] [address] 08/04/2024 Ari Hatch Chronic kidney disea se, [...] Details Provider Name:Ari Hatch, 01/30/2025 02:00:00 PM, [address] [place] [address] [place], [place], [address], Progress Notes * Todd ZAVALA JDOB: [birth year] (79 yo M)Acc No.[id number]:08/04/2024 Patient:?Todd Zavala :1945???Age:79 Y???Sex:Male Address:[address] [place] [address], [place], [phone] Subjective: * Chief Complaints: * ? changes [...] * Date:? Generated for Victor Manuel roth/Costa/Jose on:?01/26/2025 12:19 PM EDT
== END 2025-01-26 11:19 | disposition home or self-care (01) ==
PROVIDERS: PCP Internal Medicine Medical Oncology; Visit Provider Internal Medicine Hypertension Specialist
DX: N18.9 Chronic kidney disease, unspecified (principal); N28.1 Cyst of kidney, acquired
CPT/HCPCS: 99214

== ENCOUNTER → 2025-01-26 10:54 | Outpatient (BNVA) | payer MEDICARE, SELFPAY | PROVIDERS: PCP Internal Medicine Medical Oncology; Visit Provider Internal Medicine Hypertension Specialist | DX: N18.9 Chronic kidney disease, unspecified (principal); N28.1 Cyst of kidney, acquired | CPT/HCPCS: 99212 ==

== ENCOUNTER 2025-05-19 12:42 | Outpatient (REF) | payer MEDICARE, SELFPAY ==
--- OUTSIDE RECORDS SUMMARY | 2025-01-30 10:00 | XMS_ITS ---
Author Organization Ari Hatch III, MD Address [address] [place] [address] Care Team Providers Care Cytogenetics Technologist Name Role Phone Ari Hatch Primary Care Provider [phone] Allergies Allergen (clinical drug ingredient) Drug/Non Drug [...] Date Provider Diagnosis Ari Hatch III, MD [address] [place] [address] [place] [address] 01/30/2025 Ari Hatch Anemia in chronic ki [...] 4 Months, Reason: OV Provider Name:Ari Hatch, 06/02/2025 02:00:00 PM, [address] [place] [address] [place], [place], [address], Provider Name:Ari Hatch, 02/02/2026 02:00:00 PM, [address] [place] [address] [place], [address], Progress Notes * Todd ZAVALA: [birth year] (79 yo M)Acc No.[id number]:01/30/2025 Progress Notes Patient: Todd MILLER Provider: Vicenta Hatch MD :1945 A ge:79 Y S ex:Male Date:01/30/2025 Address:[address] [place] [address], [place], [id number] Subjective: * Chief Complaints: * A nnual [...] Dr. harry * Hospitalization/Major Diagno stic Procedure: [facility] 03/2018No history * Family History: F [...] well. His sister, Siobhan is a retired nuclear fuel enrichment technician and chemical sales representative. She has hypertension and she [...] P ositive H nelsy was born in [facility]. He has been to [place] for [...] - * Procedure Codes: 8 1002 URINE-NO [id number] TEST FOR BLOOD, FECES * Follow Up: 4 Months (Reason: OV) * Images: * Sign off status: Completed true * Provider: Vicenta Hatch MD Date: 01/30/2025 Generated for Victor Manuel roth/Costa/Emmettitting on: 0 05/19/2025 01:34 PM EDT History and Physical Notes * [...]
[2025-05-19 13:03] LABS: MANUAL DIFF FLAG NO
[2025-05-19 13:25] LABS: Hematocrit 30.4 % (42.0-52.0); Hemoglobin 10.0 g/dl (14.0-18.0); Imm Gran Abs Auto 0.01 X10*3/uL (0.00-0.03); Imm Gran Pct Auto 0.2 % (0.0-0.4); Lymphocytes Absolute Auto 1.4 X10*3/uL (1.2-4.9); Mean Corpuscular HGB Conc 32.9 g/dl (31.0-36.0); Mean Corpuscular Hemoglobin 31.1 pg (27.0-33.0); Mean Corpuscular Volume 94.4 fL (80.0-98.0); NRBC Abs Auto 0.000 X10*3/uL (0.0-0.012); NRBC Pct Auto 0.0 /100WBC (0.0-0.2); Platelet Count 145 X10*3/uL (160-400); Red Blood Count 3.22 X10*6/uL (4.60-5.80); White Blood Count 4.9 X10*3/uL (4.8-10.8)
--- OUTSIDE RECORDS SUMMARY | 2025-05-19 13:35 | XMS_ITS | Clinical Summary ---
[facility] Organization [facility] Address [address] [place] [address] Care Team Providers Care Candle Maker Name Role Phone Unavailable Primary Care Provider [...] Vaccines (1 of 2) 1997 RSV Immunization Adult Patie nts (1 - 1-dose 75+ series) 2022 COVID-19 Vaccine ( - 2023-2 5 season) 2024 Influenza Vaccine (Season Ended) 2025 HIB Vaccines Aged Out No longer eligi [...] age to complete this topic Meningococcal B Vaccine Aged Out No l onger eligible based on patient's age to complete this topic RSV Immunization Patients Un leigh 20 months Aged Out No longer eligible b ased on patient's age to complete this topic Varicella Vaccines Aged Out No longer eligible based on patient's age to complete this topic
--- OUTSIDE RECORDS SUMMARY | 2025-05-19 13:35 | XMS_ITS | Encounter Summary ---
Author Organization [facility] Address [address] [place] [address] Phone Care Team Providers Care Tow Feeder Name Role Phone Ari Hatch MD Primary Care Provider [phone] Encounter Details Date Type Department Care Team (Late st Contact Info) Description 02/11/2021 Orders Only [facility] [address] [place] [address] [place] [address] Provider, MD Zuri Social History Tobacco Use Types Packs/Day Years [...] on filedocumented in this encounter Care Teams Tow Feeder Relationship Specialty Start Date End Date Ari Hatch MD [address] [place] [address] [address] [place] PCP - General Medical Oncology 12/01/21 documented as of this encounter
[2025-05-19 13:41] LABS: Alanine Aminotransferase 21 U/L (0-40); Albumin Level 3.7 g/dL (3.5-5.0); Alkaline Phosphatase 61 U/L (39-117); Anion Gap 12 (12-20); Aspartate Amino Transferase 30 U/L (5-37); Blood Urea Nitrogen 47 mg/dL (9-16); Calcium 8.8 mg/dL (8.4-10.2); Carbon Dioxide 22 mmol/L (22-29); Chloride 111 mmol/L (96-108); Cholesterol 185 mg/dL (<200); Estimated Glomerular Filt Rate 25; HDL Cholesterol 72 mg/dL (>40); Potassium 4.8 mmol/L (3.3-5.1); Sodium 140 mmol/L (135-145); Total Protein 6.0 g/dL (6.5-8.0); Triglycerides 65 mg/dL (<150)
== END 2025-05-19 12:43 | disposition home or self-care (01) ==
LOC: HO.LAB 12:42
PROVIDERS: Absent Provider Urology; PCP Internal Medicine Medical Oncology; Referring Provider Internal Medicine Hypertension Specialist; Visit Provider Internal Medicine Medical Oncology
DX: Z00.00 Encounter for general adult medical examination without abnormal findings (principal); D63.1 Anemia in chronic kidney disease; F33.42 Major depressive disorder, recurrent, in full remission
CPT/HCPCS: 36415; 80053; 80061; 80164; 85025

== ENCOUNTER 2025-06-29 12:52 | Outpatient (REF) | payer SELFPAY ==
--- OUTSIDE RECORDS SUMMARY | 2025-01-30 10:00 | XMS_ITS ---
Author Organization Ari Hatch III, MD Address [address] [place] [address] Care Team Providers Care Wash Crew Person Name Role Phone Ari Hatch Primary Care [...] Date Provider Diagnosis Ari Hatch III, MD [address] [place] [address] [place] [address] 01/30/2025 Ari Hatch Anemia in chronic ki [...] OV Provider Name:Ari Hatch, 09/07/2025 11:00:00 AM, [address] [place] [address] [place], [place], [address], Provider Name:Ari Hatch, 02/02/2026 02:00:00 PM, [address] [place] [address] [place], [address], Progress Notes * Todd ZAVALA: [birth year] (79 yo M)Acc No.[id number]:01/30/2025 Progress Notes Patient: Todd MILLER Provider: Vicenta Hatch MD :1945 A ge:79 Y S ex:Male Date:01/30/2025 Address:[address] [place] [address], [place], [id number] Subjective: * Chief Complaints: * A nnual [...] Dr. harry * Hospitalization/Major Diagno stic Procedure: [facility] 03/2018No history * Family History: F ather: [...] well. His sister, Siobhan is a retired supervisor kennel and barge worker. She has hypertension and she is overweight, [...] P ositive H nelsy was born in [facility]. He has been to [place] for [...] - * Procedure Codes: 8 1002 URINE-NO [id number] TEST FOR BLOOD, FECES * Follow Up: 4 Months (Reason: OV) * Images: * Sign off status: Completed true * Provider: Vicenta Hatch MD Date: 0 01/30/2025 Generated for Victor Manuel roth/Costa/Emmettitting on: 0 06/29/2025 12:56 PM EDT History and Physical Notes * [...]
--- OUTSIDE RECORDS SUMMARY | 2025-06-29 12:56 | XMS_ITS | Clinical Summary ---
[facility] [address] [place] [address] Care Team Providers Care Central Supply Technician Name Role Phone Unavailable Primary Care Provider [...] - 1-dose 75+ series) 2022 COVID-19 Vaccine (1 - 2023-2 5 season) 2024 Depression Screening 11/19/2024 Influenza Vaccine (#1) 2025 HIB Vaccines Aged Out No longer [...]
--- OUTSIDE RECORDS SUMMARY | 2025-06-29 12:56 | XMS_ITS | Encounter Summary ---
Author Organization [facility] Address [address] [place] [phone] Phone Care Team Providers Care Viscosity Inspector Name Role Phone Ari Hatch MD Primary Care Provider [phone] Encounter Details Date Type Department Care Team (Late st Contact Info) Description 02/11/2021 Orders Only [facility] [address] [place] [id number] Provider, MD Zuri Social History Tobacco [...] on filedocumented in this encounter Care Teams Viscosity Inspector Relationship Specialty Start Date End Date Ari Hatch MD [address] [place] [address] [address] [place] PCP - General Medical Oncology 12/01/21 documented as of this encounter
--- OUTSIDE RECORDS SUMMARY | 2025-06-29 12:56 | XMS_ITS | Encounter Summary ---
Author Organization [facility] Address [address] [place] [address] Phone Care Team Providers Care Sales And Business Development Manager Name Role Phone Blanca Noble MD Primary Care Provider Encounter Details Date Type Department Care Team (Late st Contact Info) Description 08/30/2018 Procedure Pass [facility] PERIOPERATIVE DEPT [address] [place] [address] Social History Tobacco Use Types Packs/Day Years Used Date Smoking Tobacco: Never Smokeless Tobacco: Never Alcohol Use Standard Drinks/Week Comments Yes 0 (1 standard drink = 0.6 oz pur e alcohol) rare Sex and Gender Information Value Date Recorded Sex Assigned at Male 04/01/2018 2:35 AM EDT Legal Sex Male 2:14 AM EDT Gender Identity Male 04/01/2018 2:35 AM EDT Sexual Orientation Straight 04/01/2018 2: 35 AM EDT documented as of this encounter Plan of Treatment Not on file documented as of this encounter Visit Diagnoses Not on filedocumented in this encounter Care Teams Sales And Business Development Manager Relationship Specialty Start Date End Date Blanca Noble MD [address] [place] [address] PCP - General Pulmonary Disease 04/01/18 documented as of this encounter Additional Source Comments The information contained in this document represents components of the legal health record. It is not the complete legal health record.[facility]
== END 2025-06-29 12:53 | disposition home or self-care (01) ==
LOC: HO.HAP 12:52
PROVIDERS: Visit Provider Internal Medicine Medical Oncology
DX: Z13.89 Encounter for screening for other disorder (principal)

== ENCOUNTER 2025-07-01 12:30 | Outpatient (REF) | payer SELFPAY ==
--- OUTSIDE RECORDS SUMMARY | 2025-01-30 10:00 | XMS_ITS ---
Author Organization Ari Hatch III, MD Address [address] [place] [address] Care Team Providers Care Hall Porter Name Role Phone Ari Hatch Primary Care Provider Allergies Allergen (clinical drug ingredient) Drug/Non Drug Allergy documented on EMR Reaction Allergy Type Onset Date Status aripiprazole Abilify Unknown Drug Allergy Acti ve Results Component Value Reference Range Notes URINE DIP STICK Reviewed date:01/30/2025 02:35:51 PM Interpretation: Performing Lab: Notes/Report: SG 1.010 1.005 - 1.025 pH 5.0 5.0 - 9.0 DENY Negative Negative - NIT Negative Negative - PRO 15 Negative - Trace GLU Negative Negative - KET 5 Negative - UBG 0.2 0.1 - 1.8 VICK Negative 0.2 - 1.3 BLD Negative Negative - REASON FOR VISIT Annual Exam Medications Medication SIG (Take, Route, Frequency, Duration) Notes Start Date End Date Status Divalproex Sodium 250 MG 1 tablet Orally One in the morning, 3 at bed time Active Multivitamin - 1 tablet Orally Once a day Active lamoTRIgine 25 MG 1 tablet Orally 25 m g in the morning and 50mg in the evening Active Colace 100 MG 1 capsule as needed Orally Twice a day Active Trintellix 10 MG 1 tablet Orally at b ed time Active Pramipexole Dihydrochloride 0.125 MG 1 tablet in the morning and 2 tablets in the evening Orally Active Tamsulosin HCl 0.4 MG 1 capsule Orally T wice a day Active Social History Tobacco Use: Social History Observation Description Date Details (start date - stop date) Never Smoker NA - NA Sex Assigned At : Social History Observation Description Sex Assigned At Male Tobacco Control (Standard) Question Answer Notes Tobacco use: Nonsmoker Additional Findings: Tobacco non-user Aggressive nonsmoker AUDIT-C (Standard) Question Answer Notes Did you have a drink contain ing alcohol in the past year? Yes How often did you have six o r more drinks on one occasion in the past year? 4 or more times a week (4 points) How many drinks did you have on a typical day when you were drinking in the past year? 1 or 2 drinks (0 point) How often did you have a dri nk containing alcohol in the past year? Never (0 point) Points 4 Interpretation Positive Vital Signs Temperature 97.0 degrees Fahrenheit 01/31/20 25 Blood pressure systolic 114 mm Hg 01/31/20 25 Blood pressure diastolic 72 mm Hg 025 Heart Rate 62 /min 01/30/2025 Height 69 in 01/30/2025 Weight 160 lbs 01/30/2025 BMI 23.63 kg/m2 01/30/2025 Encounters Encounter Location Date Provider Diagnosis Ari Hatch III, MD [address] [place] [address] [place] [address] 01/30/2025 Ari Hatch Anemia in chronic ki dney disease D63.1 ; Recurrent major depressive disorder, in full remission F33.42 ; Chronic kidney disease, unspecified CKD stage N18.9 ; Benign prostatic hyperplasia with lower urinary tract symptoms N40.1 ; History of herniated intervertebral disc Z87.39 ; History of bilateral inguinal hernias Z87.19 and Decreased hearing, unspecified laterality H91.90 Assessments Encounter Date Diagnosis (ICD Code) Assessment Notes Treat ment Notes Treatment Clinical Notes 01/30/2025 Anemia in chronic kidney disease (ICD-10 - D63.1) He has a mild normochromic normocytic anemia of chronic renal disease. Treatment is not necessary at this time.The hematocrit is 35.7 with a mean cell volume of 94.9. 01/30/2025 Recurrent major depressive disorder, in full remission (ICD-10 - F33.42) He continues under the care of his mental health provider and no changes were necessary in his regimen. 01/30/2025 Chronic kidney disease, unspecified CKD stage (ICD-10 - N18.9) His current BUN is 56 with a creatinine of 2.48. His GFR is slightly diminished. He remains under the care of nephrology. 01/30/2025 Benign prostatic hyperplasia with lower urinary tract symptoms (ICD-10 - N40.1) Eron bandages nocturia once or night. We have discussed lifestyle modification as a way to reduce nocturia. 01/30/2025 History of herniated intervertebral disc (ICD-10 - Z87.39) This is an old problem. He has occasional twinges of back pain and is avoiding heavy lifting. The problem is stable and does not require treatment this time. 01/30/2025 History of bilateral inguinal hernias (ICD-10 - Z87.19) The incisions are stable and he is asymptomatic. He is voiding severe heavy lifting. 01/30/2025 Decreased hearing, unspecified laterality (ICD-10 - H91.90) His hearing loss is stable and no change in his regimen was needed today. Plan Of Treatment Medication Medication Name Sig Start Date Stop Date Notes Divalproex Sodium 250 MG 1 tablet Orally One in the morning, 3 at bed time Multivitamin - 1 tablet Orally Once a day lamoTRIgine 25 MG 1 tablet Orally 25 m g in the morning and 50mg in the evening Colace 100 MG 1 capsule as needed Orally Twice a day Trintellix 10 MG 1 tablet Orally at b ed time Pramipexole Dihydrochloride 0.125 MG 1 tablet in the morning and 2 tablets in the evening Orally Tamsulosin HCl 0.4 MG 1 capsule Orally T wice a day Pending Test Test Name Order Date PROFILE, FASTING (COMPREHENSIVE METABOLI C) 01/30/2025 VALPROIC ACID (VPA, DEPAKOTE) 01/30/2025 CBC w DIFF 01/30/2025 Lipid Panel 01/30/2025 Next Appt Details Follow Up: 4 Months, Reason: OV Provider Name:Ari Hatch, 09/07/2025 11:00:00 AM, [address] [place] [address] [place], [place], [address], Provider Name:Ari Hatch, 02/02/2026 02:00:00 PM, [address] [place] [address] [place], [address], Progress Notes * Todd ZAVALA: [birth year] (79 yo M)Acc No.[id number]:01/30/2025 Progress Notes Patient: Todd MILLER Provider: Vicenta Hatch MD :1945 A ge:79 Y S ex:Male Date:01/30/2025 Address:[address] [place] [address], [place], [id number] Subjective: * Chief Complaints: * A nnual Exam * HPI: D epression Screening: He returns to the office for his annual physical examination at the age of 89. He looks healthy and well. No depression is evident. Ms. examination showed no new findings. His blood work was reviewed with him. He denies any recent dyspnea or chest pain.His renal function is stable. He rises from sleep once or twice a night to urinate. We have discussed lifestyle modifications he can make to reduce nocturia. His back pain is minimal at this time. His hearing loss is unchanged. His PSA remains elevated at 8. Continues under the care of urology. PHQ-9 L ittle interest or pleasure in doing things?Several days F eeling down, depressed, or hopeless S everal days T rouble falling or staying asleep, or sleeping too much N ot at all F eeling tired or having little energy S everal days P oor appetite or overeating N ot at all F eeling bad about yourself or that you are a failure, or have let yourself or your family down N ot at all T rouble concentrating on things, such as reading the newspaper or watching television N ot at all M oving or speaking so slowly that other people could have noticed; or the opposite, being so fidgety or restless that you have been moving around a lot more than usual N ot at all T houghts that you would be better off or of hurting yourself in some way N ot at all T otal Score 3 I nterpretation M inimal Depression C OVID-19 Screening: Questions H ave you had any new onset fever, chills, cough, congestion, sore throat, shortness of breath, muscle aches? N o F all Risk Screening: Fall History H ave you had any falls with injury in the past year? N o H ave you had two or more falls in the past year? N o F all Risk Assessment: N o falls in the past year S JULIO Questions: SDOH Questions I n the past year have you been worried about losing your housing? N o I n the past year have you or any family members you live with been unable to get any of the following when it was really needed? Check all that apply: N one * ROS: G eneral/Constitutional: pain o nly [...] have been noted. G enitourinary: Frequent urination o nce a night. M usculoskeletal: Muscle aches d enies. P [...] repair right 1995dental surgery 2018colonoscopy Dr. harry * Hospitalization/Major Diagno stic Procedure: [facility] 03/2018No history * Family History: F ather: [...] well. His sister, Siobhan is a retired embossing toolsetter and anthropology department chair. She has hypertension and she is overweight, Thyroid nodule, Benign gland. Uncle passed of throat cancer, Bladder cancer. * Social History: T obacco Use: T obacco Control (Standard) T obacco use: N onsmoker A dditional Findings: Tobacco non-user A ggressive nonsmoker D rugs/Alcohol: D rugs H ave you used drugs other than those for medical reasons in the past 12 months? N o D rug/Alcohol: A LI-C (Standard) D id you have a drink containing alcohol in the past year? Y es H ow often did you have six or more drinks on one occasion in the past year? 4 or more times a week (4 points) H ow many drinks did you have on a typical day when you were drinking in the past year? 1 or 2 drinks (0 point) H ow often did you have a drink containing alcohol in the past year? N ever (0 point) P oints 4 I nterpretation P ositive H nelsy was born in [facility]. He has been to Magdalena for several years. It is his third marriage. He has 2 children, Alanna and Fabiola who are healthy and well. He has 2 grandchildren. * Medications: T akingTrintellix 10 MG Tablet 1 tablet Orally at bed time Pramipexole Dihydrochloride 0.125 MG Tablet 1 tablet in the morning and 2 tablets in the evening Orally Tamsulosin HCl 0.4 MG Capsule 1 capsule Orally Twice a day lamoTRIgine 25 MG Tablet 1 tablet Orally 25 mg in the morning and 50mg in the evening Colace 100 MG Capsule 1 capsule as needed Orally Twice a day Divalproex Sodium 500 MG Tablet Delayed Release 2 tablets Orally at bed time Multivitamin - Tablet 1 tablet Orally Once a day Medication List reviewed and reconciled with the patientTaking Trintellix 10 MG Tablet 1 tablet Orally at bed time Taking Pramipexole Dihydrochloride 0.125 MG Tablet 1 tablet in the morning and 2 tablets in the evening Orally Taking Tamsulosin HCl 0.4 MG Capsule 1 capsule Orally Twice a day Taking lamoTRIgine 25 MG Tablet 1 tablet Orally 25 mg in the morning and 50mg in the evening Taking Colace 100 MG Capsule 1 capsule as needed Orally Twice a day Taking Divalproex Sodium 500 MG Tablet Delayed Release 2 tablets Orally at bed time Taking Multivitamin - Tablet 1 tablet Orally Once a day Medication List reviewed and reconciled with the patient * Allergies: A bilify: Side Effectsno[Allergies Verified] Objective: * Vitals: H t: 69, Wt:160, BMI:23.63, BP:114/72, HR:62, Temp:97.0, Wt-k.57. * P ast Orders: Lab:Complete Blood Count Aut o Diff * Collection Date 01/20/2025 08/29/2024 04/28/2024 Collection Time 12:54 PM 12:40 PM 10:47 AM Order Date 01/20/2025 08/29/2024 04/28/2024 White Blood Count 5.7 (Ref Range: 4.8-10.8 X10*3/uL) 4.6 L (Ref Range: 4.8-10.8 X10*3/uL) 5.6 (Ref Range: 4.8-10.8 X10*3/uL) Red Blood Count 3.76 L (Ref Range: 4.60-5.80 X10*6/uL) 3.74 L (Ref Range: 4.60-5.80 X10*6/uL) 3.81 L (Ref Range: 4.60-5.80 X10*6/uL) Hemoglobin 11.9 L (Ref Range: 14.0-18.0 g/dl) 11.8 L (Ref Range: 14.0-18.0 g/dl) 12.0 L (Ref Range: 14.0-18.0 g/dl) Hematocrit 35.7 L (Ref Range: 42.0-52.0 %) 35.5 L (Ref Range: 42.0-52.0 %) 36.2 L (Ref Range: 42.0-52.0 %) Mean Corpuscular Volume 94.9 (Ref Range: 80.0-98.0 fL) 94.9 (Ref Range: 80.0-98.0 fL) 95.0 (Ref Range: 80.0-98.0 fL) Mean Corpuscular Hemoglobin 31.6 (Ref Range: 27.0-33.0 pg) 31.6 (Ref Range: 27.0-33.0 pg) 31.5 (Ref Range: 27.0-33.0 pg) Mean Corpuscular HGB Conc 33.3 (Ref Range: 31.0-36.0 g/dl) 33.2 (Ref Range: 31.0-36.0 g/dl) 33.1 (Ref Range: 31.0-36.0 g/dl) Red Cell Distribution Width 14.6 (Ref Range: 11.0-16.0 %) 14.6 (Ref Range: 11.0-16.0 %) 14.7 (Ref Range: 11.0-16.0 %) Platelet Count 176 (Ref Range: 160-400 X10*3/uL) 168 (Ref Range: 160-400 X10*3/uL) 180 (Ref Range: 160-400 X10*3/uL) Mean Platelet Volume 11.3 (Ref Range: 9.4-12.4 fL) 10.6 (Ref Range: 9.4-12.4 fL) 11.1 (Ref Range: 9.4-12.4 fL) Neutrophils Percent Auto 59.8 (Ref Range: 45-73 %) 50.7 (Ref Range: 45-73 %) 58.3 (Ref Range: 45-73 %) Imm Gran Pct Auto 0.4 (Ref Range: 0.0-0.4 %) 0.4 (Ref Range: 0.0-0.4 %) 0.4 (Ref Range: 0.0-0.4 %) Lymphocytes Percent Auto 26.6 (Ref Range: 20-40 %) 33.4 (Ref Range: 20-40 %) 26.2 (Ref Range: 20-40 %) Monocytes Percent Auto 10.2 (Ref Range: 2-11 %) 11.6 H (Ref Range: 2-11 %) 10.9 (Ref Range: 2-11 %) Eosinophils Percent Auto 2.3 (Ref Range: 0-4 %) 2.6 (Ref Range: 0-4 %) 3.0 (Ref Range: 0-4 %) Basophils Percent Auto 0.7 (Ref Range: 0-2 %) 1.3 (Ref Range: 0-2 %) 1.2 (Ref Range: 0-2 %) NRBC Pct Auto 0.0 (Ref Range: 0.0-0.2 /100WBC) 0.0 (Ref Range: 0.0-0.2 /100WBC) 0.0 (Ref Range: 0.0-0.2 /100WBC) Neutrophils Absolute Auto 3.4 (Ref Range: 2.0-8.3 x10*3/uL) 2.3 (Ref Range: 2.0-8.3 x10*3/uL) 3.3 (Ref Range: 2.0-8.3 x10*3/uL) Imm Gran Abs Auto 0.02 (Ref Range: 0.00-0.03 X10*3/uL) 0.02 (Ref Range: 0.00-0.03 X10*3/uL) 0.02 (Ref Range: 0.00-0.03 X10*3/uL) Lymphocytes Absolute Auto 1.5 (Ref Range: 1.2-4.9 X10*3/uL) 1.5 (Ref Range: 1.2-4.9 X10*3/uL) 1.5 (Ref Range: 1.2-4.9 X10*3/uL) Monocytes Absolute Auto 0.6 (Ref Range: 0.1-1.2 X10*3/uL) 0.5 (Ref Range: 0.1-1.2 X10*3/uL) 0.6 (Ref Range: 0.1-1.2 X10*3/uL) Eosinophils Absolute Auto 0.1 (Ref Range: 0.0-0.4 X10*3/uL) 0.1 (Ref Range: 0.0-0.4 X10*3/uL) 0.2 (Ref Range: 0.0-0.4 X10*3/uL) Basophils Absolute Auto 0.0 (Ref Range: 0.0-0.2 X10*3/uL) 0.1 (Ref Range: 0.0-0.2 X10*3/uL) 0.1 (Ref Range: 0.0-0.2 X10*3/uL) NRBC Abs Auto 0.000 (Ref Range: 0.0-0.012 X10*3/uL) 0.000 (Ref Range: 0.0-0.012 X10*3/uL) 0.000 (Ref Range: 0.0-0.012 X10*3/uL) * Lab:Comprehensive Met. Panel * Collection Date 01/20/2025 04/28/2024 01/18/2024 Collection Time 12:54 PM 10:47 AM 12:20 PM Order Date 01/20/2025 04/28/2024 01/18/2024 Sodium 141 (Ref Range: 135-145 mmol/L) 141 (Ref Range: 135-145 mmol/L) 142 (Ref Range: 135-145 mmol/L) Bilirubin Total 0.4 (Ref Range: 0.0-1.0 mg/dL) 0.4 (Ref Range: 0.0-1.0 mg/dL) 0.2 (Ref Range: 0.0-1.0 mg/dL) Aspartate Amino Transferase 26 (Ref Range: 5-37 U/L) 26 (Ref Range: 5-37 U/L) 21 (Ref Range: 5-37 U/L) Alanine Aminotransferase 20 (Ref Range: 0-40 U/L) 26 (Ref Range: 0-40 U/L) 20 (Ref Range: 0-40 U/L) Total Protein 7.5 (Ref Range: 6.5-8.0 g/dL) 6.9 (Ref Range: 6.5-8.0 g/dL) 6.9 (Ref Range: 6.5-8.0 g/dL) Albumin Level 4.1 (Ref Range: 3.5-5.0 g/dL) 3.9 (Ref Range: 3.5-5.0 g/dL) 4.0 (Ref Range: 3.5-5.0 g/dL) Alkaline Phosphatase 80 (Ref Range: 39-117 U/L) 74 (Ref Range: 39-117 U/L) 99 (Ref Range: 39-117 U/L) Potassium 4.7 (Ref Range: 3.3-5.1 mmol/L) 4.9 (Ref Range: 3.3-5.1 mmol/L) 5.4 H (Ref Range: 3.3-5.1 mmol/L) Chloride 110 H (Ref Range: 96-108 mmol/L) 111 H (Ref Range: 96-108 mmol/L) 109 H (Ref Range: 96-108 mmol/L) Carbon Dioxide 25 (Ref Range: 22-29 mmol/L) 22 (Ref Range: 22-29 mmol/L) 24 (Ref Range: 22-29 mmol/L) Anion Gap 11 L (Ref Range: 12-20) 13 (Ref Range: 12-20) 14 (Ref Range: 12-20) Blood Urea Nitrogen 48 H (Ref Range: 9-16 mg/dL) 47 H (Ref Range: 9-16 mg/dL) 58 H (Ref Range: 9-16 mg/dL) Creatinine 2.16 H (Ref Range: 0.5-1.4 mg/dL) 2.39 H (Ref Range: 0.5-1.4 mg/dL) 2.19 H (Ref Range: 0.5-1.4 mg/dL) Estimated Glomerular Filt Rate 30 27 29 Glucose Random 90 (Ref Range: 60-115 mg/dL) 88 (Ref Range: 60-115 mg/dL) 88 (Ref Range: 60-115 mg/dL) Calcium 9.4 (Ref Range: 8.4-10.2 mg/dL) 9.6 (Ref Range: 8.4-10.2 mg/dL) 9.6 (Ref Range: 8.4-10.2 mg/dL) * Lab:Prostate Specific Antige n * Collection Date 01/20/2025 01/18/2024 12/13/2023 Collection Time 12:54 PM 12:20 PM 11:20 AM Order Date 01/20/2025 01/18/2024 12/13/2023 Prostate Specific Antigen 8.70 H (Ref Range: <0.05-4.0 ng/mL) 4.01 H (Ref Range: <0.05-4.0 ng/mL) 4.02 H (Ref Range: <0.05-4.0 ng/mL) * Lab:URINE DIP STICK * Collection Date 01/30/2025 01/29/2024 01/23/2023 Order Date 01/30/2025 01/29/2024 01/23/2023 SG 1.010 (Ref Range: 1.005 - 1.025) 1.010 (Ref Range: 1.005 - 1.025) 1.015 pH 5.0 (Ref Range: 5.0 - 9.0) 7.0 (Ref Range: 5.0 - 9.0) 6.0 DENY Negative (Ref Range: Negative -) Negative (Ref Range: Negative -) Negative NIT Negative (Ref Range: Negative -) Negative (Ref Range: Negative -) Negative PRO 15 (Ref Range: Negative - Trace) 15 (Ref Range: Negative - Trace) Negative GLU Negative (Ref Range: Negative -) Negative (Ref Range: Negative -) Negative KET 5 (Ref Range: Negative -) Negative (Ref Range: Negative -) Negative UBG 0.2 (Ref Range: 0.1 - 1.8) 0.2 (Ref Range: 0.1 - 1.8) 0.2 VICK Negative (Ref Range: 0.2 - 1.3) Negative (Ref Range: 0.2 - 1.3) Negative BLD Negative (Ref Range: Negative -) Negative (Ref Range: Negative -) 6.0 Menstrating NR NR N/A * Examination: G eneral Examination: GENERAL APPEARANCE: p leasant, well nourished, well developed, in no acute distress, calm and relaxed, man. HEAD: a traumatic, normocephalic. EYES: e bobby, perrla, anicteric, conjugate. EARS: N ormal anatomy with bilateral hearing loss. NOSE: s eptum intact. ORAL CAVITY: n [...] sounds normal, no ascites, no organomegaly, no mass, Bilateral inguinal herniorrhaphy scars which are well-healed and old. RECTAL EXAM: , normal tone, no external hemorrhoids, no masses palpable, no melena, no red blood, prostate enlarged without nodules, stool guaiac negative.? MUSCULOSKELETAL: e xtremities unremarkable, no clubbing, cyanosis or edema. PERIPHERAL PULSES: n ormal. NEUROLOGIC: a lert and oriented, cranial nerves 2-12 grossly intact, deep tendon reflexes 2+ symmetrical, motor strength normal upper and lower extremities, sensory exam intact. PSYCH: a lert, oriented. Assessment: * Assessment: 1. R ecurrent major depressive disorder, in full remission - F33.42 (Primary) N otes :He continues under the care of his mental health provider and no changes were necessary in his regimen. 2 . A nemia in chronic kidney disease - D63.1 N otes :He has a mild normochromic normocytic anemia of chronic renal disease. Treatment is not necessary at this time.The hematocrit is 35.7 with a mean cell volume of 94.9. 3 . C hronic kidney disease, unspecified CKD stage - N18.9 N otes :His current BUN is 56 with a creatinine of 2.48. His GFR is slightly diminished. He remains under the care of nephrology. 4 . B enign prostatic hyperplasia with lower urinary tract symptoms - N40.1? Notes :Eron bandages nocturia once or night. We have discussed lifestyle modification as a way to reduce nocturia. 5 . H istory of herniated intervertebral disc - Z87.39 N otes :This is an old problem. He has occasional twinges of back pain and is avoiding heavy lifting. The problem is stable and does not require treatment this time. 6 . H istory of bilateral inguinal hernias - Z87.19 N otes :The incisions are stable and he is asymptomatic. He is voiding severe heavy lifting. 7 . D ecreased hearing, unspecified laterality - H91.90 N otes :His hearing loss is stable and no change in his regimen was needed today. Plan: * Treatment: 2. A nemia in chronic kidney disease Continue Multivitamin Tablet, -, 1 tablet, Orally, Once a day. L AB: PROFILE, FASTING (COMPREHENSIVE METABOLIC) L AB: VALPROIC ACID (VPA, DEPAKOTE) L AB: CBC w DIFF L AB: Lipid Panel 3. O thers Continue Trintellix Tablet, 10 MG, [...] the morning, 3 at bed time. * Labs: * L ab: URINE DIP STICK (Collection Date & Time - 01/30/2025) Value Reference Range S G 1.010 1.005 - 1.025 * p H 5.0 5.0 - 9.0 * L EU Negative Negative - * N IT Negative Negative - * P RO 15 Negative - Trace * G WINDY Negative Negative - * K ET 5 Negative - * U BG 0.2 0.1 - 1.8 * B IL Negative 0.2 - 1.3 * B LD Negative Negative - * Procedure Codes: 8 1002 URINE-NO [id number] TEST FOR BLOOD, FECES * Follow Up: 4 Months (Reason: OV) * Images: * Sign off status: Completed true * Provider: Vicenta Hatch MD Date: 0 01/30/2025 Generated for Victor Manuel roth/Costa/Emmettitting on: 0 07/01/2025 01:08 PM EDT History and Physical Notes * HPI (History of Present Illness) Category Sub-Category Detail Notes Depression Screening PHQ-9 Little inte rest or pleasure in doing things: Several days Feeling down, depressed, or hopeless: Se veral days Trouble falling or staying asleep, or sl eeping too much: Not at all Feeling tired or having little energy: S everal days Poor appetite or overeating: Not at all Feeling bad about yourself o r that you are a failure, or have let yourself or your family down: Not at all Trouble concentrating on thi ngs, such as reading the newspaper or watching television: Not at all Moving or speaking so slowly that other people could have noticed; or the opposite, being so fidgety or restless that you have been moving around a lot more than usual: Not at all Thoughts that you would be b libra off or of hurting yourself in some way: Not at all Total Score: 3 Interpretation: Minimal Depression Fall Risk Screening Fall History Have you had any falls with injury in the past year?: No Have you had two or more falls in the year?: No Fall Risk Assessment:: No falls in the year COVID-19 Screening Questions Have you had any new onset fever, chills, cough, congestion, sore throat, shortness of breath, muscle aches?: No SDOH Questions SDOH Questions In the past year have you been worried about losing your housing?: No In the past year have you or any family members you live with been unable to get any of the following when it was really needed? Check all that apply:: None Examination Category Sub-Category Detail Notes General Examination GENERAL APPEARANCE: pleasant , well nourished, well developed, in no acute distress, calm and relaxed, man HEAD: atraumatic, normocep halic EYES: eomi, perrla, anicte allie, conjugate EARS: Normal anatomy with bilateral hearing loss NOSE: septum intact NECK/THYROID: no jugular venous di stention, no carotid bruit, thyroid normal HEART: no clicks, gallops, murmurs, or rubs, regular rhythm, S1, S2 normal, no s3, or vascular bruits LUNGS: clear to auscultatio n ABDOMEN: bowel sounds normal, no ascites, no organomegaly, no mass, Bilateral inguinal herniorrhaphy scars which are well-healed and old NEUROLOGIC: alert and oriented, cranial nerves 2-12 grossly intact, deep tendon reflexes 2+ symmetrical, motor strength normal upper and lower extremities, sensory exam intact SKIN: no suspicious lesion s, anicteric PERIPHERAL PULSES: normal BREASTS: no masses palpable b ilaterally MUSCULOSKELETAL: extremities unremark able, no clubbing, cyanosis or edema LYMPH NODES: no enlarged lymph no clyde,spleen normal RECTAL EXAM: , normal tone, no ex ternal hemorrhoids, no masses palpable, no melena, no red blood, prostate enlarged without nodules, stool guaiac negative PSYCH: alert, oriented ORAL CAVITY: normal, unremarkable
--- OUTSIDE RECORDS SUMMARY | 2025-07-01 13:08 | XMS_ITS | Encounter Summary ---
Author Organization [facility] Address [address] [place] [address] Phone Care Team Providers Care Flight Test Mechanic Name Role Phone Ari Hatch MD Primary Care Provider [phone] Encounter Details Date Type Department Care Team (Late st Contact Info) Description 02/11/2021 Orders Only [facility] [address] [place] [address] Provider, MD Zuri Social History Tobacco [...] on filedocumented in this encounter Care Teams Flight Test Mechanic Relationship Specialty Start Date End Date Ari Hatch MD [address] [place] [address] [address] [place] PCP - General Medical Oncology 12/01/21 documented as of this encounter
--- OUTSIDE RECORDS SUMMARY | 2025-07-01 13:08 | XMS_ITS | Clinical Summary ---
[facility] [address] [place] [address] Care Team Providers Care Medical Liaison Name Role Phone Unavailable Primary Care Provider [...]
--- OUTSIDE RECORDS SUMMARY | 2025-07-01 13:08 | XMS_ITS | Encounter Summary ---
Author Organization [facility] Address [address] [place] [address] Phone Care Team Providers Care Work Adjustment Instructor Name Role Phone Blanca Noble MD Primary Care Provider Encounter Details Date Type Department Care Team (Late st Contact Info) Description 08/30/2018 Procedure Pass [facility] PERIOPERATIVE DEPT [address] [place] [address] Social History Tobacco Use Types Packs/Day Years [...] on filedocumented in this encounter Care Teams Work Adjustment Instructor Relationship Specialty Start Date End Date Blanca Noble MD [address] [place] [address] PCP - General Pulmonary Disease 04/01/18 documented as of this encounter Additional Source Comments The information contained in this document represents components of the legal health record. It is not the complete legal health record.[facility]
== END 2025-07-01 12:31 | disposition home or self-care (01) ==
LOC: HO.HAP 12:30
PROVIDERS: PCP Internal Medicine Medical Oncology; Visit Provider Internal Medicine Medical Oncology
DX: H90.3 Sensorineural hearing loss, bilateral (principal)
CPT/HCPCS: V5299

== ENCOUNTER 2025-07-27 11:40 | Outpatient (REF) | payer MEDICARE, SELFPAY ==
--- OUTSIDE RECORDS SUMMARY | 2024-08-01 14:13 | XMS_ITS ---
Author Organization Ari Hatch III, MD Address [address] [place] [address] [place] [address] Care Team Providers Care Automatic Mold Sander Name Role Phone Ari Hatch Primary Care Provider [phone] REASON FOR VISIT Prostate F/U Info Social History Sex Assigned At : Social History Observation Description Sex Assigned At Male Encounters Encounter Location Date Provider Diagnosis Ari Hatch III, MD [address] [place] [address] [place] [address] 08/01/2024 Ari Hatch Plan Of Treatment Next Appt Details Provider Name:Ari Hatch, 09/07/2025 11:00:00 AM, [address] [place] [address] [place], [address], Provider Name:Ari Hatch, 02/02/2026 02:00:00 PM, [address] [place] [address] [place], [address], Progress Notes * Todd ZAVALADOB: [birth year] (79 yo M)Acc No.[id number]:08/01/2024 Patient: Todd Hunt :1945 A ge:79 Y S ex:Male Address:[place], [address] * true * Date: Generated for Printi ng/Faxing/eTransmitting on: 0 07/27/2025 02:20 PM EDT
--- OUTSIDE RECORDS SUMMARY | 2024-08-04 05:51 | XMS_ITS ---
Author Organization Ari Hatch III, MD Address [address] [place] [address] [place] [address] Care Team Providers Care Plumber'S Helper Name Role Phone Ari Hatch Primary Care Provider [phone] REASON FOR VISIT ? changes to be made to his order from Dr Hatch Social History Sex Assigned At : Social History Observation Description Sex Assigned At Male Encounters Encounter Location Date Provider Diagnosis Ari Hatch III, MD [address] [place] [address] [place] [address] 08/04/2024 Ari Hatch Chronic kidney disea se, unspecified CKD stage N18.9 ; History of anemia Z86.2 ; Benign prostatic hyperplasia with lower urinary tract symptoms N40.1 ; Hyperlipidemia, unspecified hyperlipidemia type E78.5 and Elevated PSA R97.20 Assessments Encounter Date Diagnosis (ICD Code) Assessment Notes Treat ment Notes Treatment Clinical Notes 08/04/2024 Chronic kidney disease, unspecified CKD stage (ICD-10 - N18.9) 08/04/2024 History of anemia (ICD-10 - Z86.2) 08/04/2024 Benign prostatic hyperplasia with lower urinary tract symptoms (ICD-10 - N40.1) 08/04/2024 Hyperlipidemia, unspecified hyperlipidemia type (ICD-10 - E78.5) 08/04/2024 Elevated PSA (ICD-10 - R97.20) Plan Of Treatment Pending Test Test Name Order Date PROFILE, FASTING (COMPREHENSIVE METABOLI C) 08/04/2024 LIPID PANEL 08/04/2024 CBC w DIFF 08/04/2024 PSA Free and Total 08/04/2024 Next Appt Details Provider Name:Ari Hatch, 09/07/2025 11:00:00 AM, [address] [place] [address] [address], [place], [address], Provider Name:Ari Hatch, 02/02/2026 02:00:00 PM, [address] [place] [address] [address], [place], [address], Progress Notes * Todd ZAVALA SamiraDOB: [birth year] (79 yo M)Acc No.[id number]:08/04/2024 Patient: Todd Hunt :1945 A ge:79 Y S ex:Male Address:[address] [place] [address] [place], [address] Subjective: * Chief Complaints: * ? changes to be made to his order from Dr Hatch * Medical History: * Surgical History: * Hospitalization/Major Diagno stic Procedure: * Medications: Objective: Assessment: * Assessment: 1. C hronic kidney disease, unspecified CKD stage - N18.9 2 . H istory of anemia - Z86.2 3 . B enign prostatic hyperplasia with lower urinary tract symptoms - N40.1 4 . H yperlipidemia, unspecified hyperlipidemia type - E78.5 5 . E levated PSA - R97.20 Plan: * Treatment: 2. H istory of anemia L AB: PROFILE, FASTING (COMPREHENSIVE METABOLIC) L AB: LIPID PANEL L AB: CBC w DIFF L AB: PSA Free and Total 3. B enign prostatic hyperplasia with lower urinary tract symptoms L AB: PROFILE, FASTING (COMPREHENSIVE METABOLIC) L AB: LIPID PANEL L AB: CBC w DIFF L AB: PSA Free and Total 4. H yperlipidemia, unspecified hyperlipidemia type L AB: PROFILE, FASTING (COMPREHENSIVE METABOLIC) L AB: LIPID PANEL L AB: CBC w DIFF L AB: PSA Free and Total 5. E levated PSA L AB: PROFILE, FASTING (COMPREHENSIVE METABOLIC) L AB: LIPID PANEL L AB: CBC w DIFF L AB: PSA Free and Total * Procedure Codes: * true * Date: Generated for Printi ng/Faxing/eTransmitting on: 0 07/27/2025 02:20 PM EDT
--- OUTSIDE RECORDS SUMMARY | 2024-09-02 10:30 | XMS_ITS ---
Author Organization Ari Hatch III, MD Address [address] [place] [address] Care Team Providers Care Physician Internist Name Role Phone Ari Hatch Primary Care Provider Allergies Allergen (clinical drug ingredient) Drug/Non Drug [...] Date Provider Diagnosis Ari Hatch III, MD [address] [place] [address] [place] [address] 09/02/2024 Ari Hatch Anemia in chronic ki [...] check-up Provider Name:Ari Hatch, 09/07/2025 11:00:00 AM, [address] [place] [address] A[place], [place], [address], Provider Name:Ari Hatch, 02/02/2026 02:00:00 PM, [address] [place] [address] ANANYA NICHOLE, [place], [address], Progress Notes * Todd ZAVALADOB: [birth year] (79 yo M)Acc No.[id number]:09/02/2024 Progress Notes Patient: Todd MILLER Provider: Vicenta Hatch MD :1945 A ge:79 Y S ex:Male Date:09/02/2024 Address:[address] [place] [address] [id number] Subjective: * Chief Complaints: * C KDDepressionHearing [...] history * Hospitalization/Major Diagno stic Procedure: C [facility] 03/2018No history * Family History: F ather: [...] well. His sister, Siobhan is a retired professor of chemical engineering and studio operation engineer. She has hypertension and she is overweight, Thyroid nodule, Benign gland. Uncle passed of throat cancer, Bladder cancer. * Social History: T obacco Use: T obacco Use/Smoking P tatiana is a n onsmoker A dditional Findings: Tobacco Non-User A ggressive non-smoker Linnea whittington was born in [facility]. He has been to [place] for several [...] Generated for Victor Manuel roth/Costa/Jose on: 0 07/27/2025 02:21 PM EDT History and Physical Notes * [...]
--- OUTSIDE RECORDS SUMMARY | 2025-01-30 10:00 | XMS_ITS ---
Author Organization Ari Hatch III, MD Address [address] [place] [address] Care Team Providers Care Circulation Man Name Role Phone Ari Hatch Primary Care [...] Provider Diagnosis Ari Hatch III, MD [address] [place] [address] [place] [address] 01/30/2025 Ari Hatch Anemia in chronic ki [...] OV Provider Name:Ari Hatch, 09/07/2025 11:00:00 AM, [address] [place] [address] [place], [place], [address], Provider Name:Ari Hatch, 02/02/2026 02:00:00 PM, [address] [place] [address] [place], [address], Progress Notes * Todd ZAVALA: [birth year] (79 yo M)Acc No.[id number]:01/30/2025 Progress Notes Patient: Todd MILLER Provider: Vicenta Hatch MD :1945 A ge:79 Y S ex:Male Date:01/30/2025 Address:[address] [place] [address], [place], [id number] Subjective: * Chief Complaints: * A nnual [...] Dr. harry * Hospitalization/Major Diagno stic Procedure: [facility] 03/2018No history * Family History: F ather: [...] well. His sister, Siobhan is a retired shank sander and national sales representative. She has hypertension and she is overweight, [...] P ositive H nelsy was born in [facility]. He has been to [place] for several [...] - * Procedure Codes: 8 1002 URINE-NO [id number] TEST FOR BLOOD, FECES * Follow Up: 4 Months (Reason: OV) * Images: * Sign off status: Completed true * Provider: Vicenta Hatch MD Date: 0 01/30/2025 Generated for Victor Manuel roth/Costa/Emmettitting on: 0 07/27/2025 02:19 PM EDT History and Physical Notes * [...]
--- OUTSIDE RECORDS SUMMARY | 2025-06-02 10:00 | XMS_ITS ---
Author Organization Ari Hatch III, MD Address [address] [place] [address] [address] [place] [address] Care Team Providers Care Electrification Adviser Name Role Phone Ari Hatch Primary Care Provider [phone] Allergies Allergen (clinical drug ingredient) Drug/Non Drug [...] Encounters Encounter Location Date Provider Diagnosis Ari Hathc III, MD [address] [place] [address] DR [place], [place] [address] 06/02/2025 Ari Hatch Anemia in chronic ki [...] OV Provider Name:Ari Hatch, 09/07/2025 11:00:00 AM, [address] [place] [address] [address], [place], [address], Provider Name:Ari Hatch, 02/02/2026 02:00:00 PM, [address] [place] [address] [address], [place], [address], Progress Notes * Todd ZAVALADOB: [birth year] (80 yo M)Acc No.[id number]:06/02/2025 Progress Notes Patient: Terrie CARPENTER Todd Hogan Provider: Vicenta Hatch MD :1945 A ge:80 Y S ex:Male Date:06/02/2025 Address:[address] [place], [place] [id number] Subjective: * Chief Complaints: * C hronic [...] Dr. harry * Hospitalization/Major Diagno stic Procedure: [facility] 03/2018No history * Family [...] well. His sister, Siobhan is a retired logger all round and foiling machine adjuster. She has hypertension and she is overweight, Thyroid nodule, Benign gland. Uncle passed of throat cancer, Bladder cancer. * Social History: T obacco Use: T obacco Control (Standard) T obacco use: N onsmoker A dditional Findings: Tobacco non-user A ggressive nonsmoker Linnea whittington was born in [facility]. He has been to [place] for [...] 06/02/2025 Generated for Victor Manuel roth/Costa/Emmettitting on: 0 07/27/2025 02:20 PM EDT History and Physical Notes * [...]
[2025-07-27 12:59] LABS: Appearance Urine Clear; Glucose Urine UA Negative (Negative); PH 6.0 (5.0-9.0); Specific Gravity - Urine 1.010 (1.005-1.025)
[2025-07-27 13:09] LABS: Hematocrit 34.7 % (42.0-52.0); Hemoglobin 11.6 g/dl (14.0-18.0); Mean Corpuscular HGB Conc 33.4 g/dl (31.0-36.0); Mean Corpuscular Hemoglobin 32.0 pg (27.0-33.0); Mean Corpuscular Volume 95.9 fL (80.0-98.0); NRBC Abs Auto 0.000 X10*3/uL (0.0-0.012); NRBC Pct Auto 0.0 /100WBC (0.0-0.2); Platelet Count 178 X10*3/uL (160-400); Red Blood Count 3.62 X10*6/uL (4.60-5.80); White Blood Count 5.7 X10*3/uL (4.8-10.8)
[2025-07-27 13:38] LABS: Parathyroid Hormone Intact 110.2 pg/mL (8.7-77.1)
[2025-07-27 13:39] LABS: Alanine Aminotransferase 25 U/L (0-40); Albumin Level 4.4 g/dL (3.5-5.0); Alkaline Phosphatase 78 U/L (39-117); Anion Gap 13 (12-20); Aspartate Amino Transferase 33 U/L (5-37); Blood Urea Nitrogen 52 mg/dL (9-16); Calcium 9.4 mg/dL (8.4-10.2); Carbon Dioxide 24 mmol/L (22-29); Chloride 111 mmol/L (96-108); Estimated Glomerular Filt Rate 26; Potassium 5.1 mmol/L (3.3-5.1); Sodium 143 mmol/L (135-145); Total Protein 7.2 g/dL (6.5-8.0)
[2025-07-27 13:42] LABS: Total Protein Urine Random 10 mg/dL (<12)
[2025-07-27 13:52] LABS: Prostate Specific Antigen 9.48 ng/mL (<0.05-4.0)
--- OUTSIDE RECORDS SUMMARY | 2025-07-27 14:20 | XMS_ITS | Encounter Summary ---
Author Organization [facility] Address [address] [place] [address] Phone Care Team Providers Care Cashier Self Service Gasoline Name Role Phone Blanca Noble MD Primary Care Provider Encounter Details Date Type Department Care Team (Late st Contact Info) Description 08/30/2018 Procedure Pass [facility] PERIOPERATIVE DEPT [address] [place] [address] Social History Tobacco Use Types Packs/Day Years [...] on filedocumented in this encounter Care Teams Cashier Self Service Gasoline Relationship Specialty Start Date End Date Blanca Noble MD [address] [place] [address] PCP - General Pulmonary Disease 04/01/18 documented as of this encounter Additional Source Comments The information contained in this document represents components of the legal health record. It is not the complete legal health record.[facility]
--- OUTSIDE RECORDS SUMMARY | 2025-07-27 14:20 | XMS_ITS | Clinical Summary ---
Author Organization [facility] Address [address] [place] [address] Phone Care Team Providers Care Grain Operator Name Role Phone Blanca Noble MD Primary Care Provider Allergies Active Allergy Reactions Criticality Noted Date Comments Codeine 08/19/2018 Avoids as taking depakene Medications * This document contains information received from the source organization and may not represent a complete record from that organization. finasteride (PROSCAR) 5 mg tablet Take 5 mg by mouth daily. Active tamsulosin (FLOMAX) 0.4 mg Cp24 0.4 mg daily. Active valproic acid, as sodium salt, (DEPAKENE ORAL)Indications: and 625 mg every evening Take 500 mg by mouth every morning. Indications: and 625 mg every evening Active lamoTRIgine (LAMICTAL) 25 MG tablet Take 50 mg by mouth daily. Active therapeutic multivitamin tablet Take 1 tablet by mouth daily. Active docusate sodium (COLACE ORAL) Take 1 tablet by mouth daily as needed. Active cariprazine (VRAYLAR) 1.5 mg capsule Take 1.5 mg by mouth every other day. Active oxyCODONE 5 MG immediate release tablet Take 1 tablet (5 mg total) by mouth every 4 (four) hours as needed for moderate pain (from procedure). Partial fill ok at patient request. 6 tablet 8 Active Active Problems Problem Noted Date Diagnosed Date Left inguinal hernia 07/24/2018 Bipolar affective disorder, current episode manic with psychotic symptoms 04/01/2018 Social History Tobacco Use Types Packs/Day Years Used Date Smoking Tobacco: Never Smokeless Tobacco: Never Alcohol Use Standard Drinks/Week Comments Yes 0 (1 standard drink = 0.6 oz pur e alcohol) rare Education Answer Date Recorded Are you interested in more education? Not on kayy e 03/16/2023 Are you concerned about learning? Not on file 03/16/2023 No 03/16/2023 No 03/16/2023 Digital Access Answer Date Recorded No 04/17/2023 No 04/17/2023 No 04/17/2023 Reliable internet access at home? Not on file 04/17/2023 Device with a working camera? Not on file Sex and Gender Information Value Date Recorded Sex Assigned at Male 04/01/2018 2:35 AM EDT Legal Sex Male 2:14 AM EDT Gender Identity Male 04/01/2018 2:35 AM EDT Sexual Orientation Straight 04/01/2018 2: 35 AM EDT Last Filed Vital Signs Vital Sign Reading Time Taken Comments Blood Pressure 120/74 08/30/2018 2:30 PM EDT Pulse 64 08/30/2018 2:30 PM EDT Temperature 36.5 C (97.7 F) 08/30/2018 1:10 PM EDT Respiratory Rate 14 08/30/2018 2:30 PM EDT Oxygen Saturation 99% 08/30/2018 2:30 PM EDT Inhaled Oxygen Concentration - - Weight 70.3 kg (155 lb) 08/19/2018 10:51 AM EDT Height 180.3 cm (5' 11 ) 08/19/2018 10:51 AM EDT Body Mass Index 21.62 08/19/2018 10:51 AM EDT Plan of Treatment Health Maintenance Due Date Last Done Comments Adult Td,Tdap Booster 1945 DEPRESSION SCREENING 1959 HEPATITIS C SCREENING 1965 ZOSTER VACCINES (2 of 3) 11/24/2012 09/29/2012 VALPROIC ACID (DEPAKENE) LEVEL 04/22/2019 04/22/2018, 04/19/2018 PNEUMOCOCCAL VACCINES (50+ years) (2 of 2 - PPSV23) 08/02/2021 08/02/2020 RSV VACCINE (1 - 1-dose 75+ series) 2022 LIPID PANEL 04/04/2023 04/04/2018 INFLUENZA VACCINE (#1) 2025 0, 09/12/2019, 08/17/2018, Additional history exists COVID-19 VACCINE (2024- season) 2025 01/14/2021, 12/14/2020 SMOKING STATUS SCREENING (Once After 26 Yrs) Completed 08/19/2018 HEPATITIS A VACCINES Aged Out No long er eligible based on patient's age to complete this topic HIB VACCINES Aged Out No longer eligi ble based on patient's age to complete this topic MENINGOCOCCAL VACCINES (ACWY) Aged Out No longer eligible based on patient's age to complete this topic MENINGOCOCCAL VACCINES (B) Aged Out N o longer eligible based on patient's age to complete this topic Medical Devices Implanted Type Area Cma Or Lpn Device Identifier Shelf Expiration Date Model / Serial / Lot Patch Synthetic L14cm 11cmw Abdominal Absorbable Coated Oval Polypropylene Sepramesh Ventrio St Ca/1ea - [id number] Implanted:Qty: 1 on 08/30/2018 by Yovani Romero MD at [facility] Left: Groin DAVOL 06/15/2020 [id number] / / [id number] Procedures Procedure Name Priority Date/Time Associated Diagnosis Comments VALPROIC ACID Timed 04/22/2018 6:02 AM EDT LIPID PANEL Routine 04/04/2018 6:08 AM EDT from Last 3 Months or Most Recently Relevant to Health Maintenance Results * (ABNORMAL) Valproic acid (04/22/2018 6:02 AM EDT) VALPROIC ACID 36.6(L) 50.0 - 100.0 ug/mL [facility] Blood 04/22/2018 6:02 AM EDT 04/22/2018 6:22 AM EDT Nela Garcia MD LAB BLOOD ORDERABLES Fi nal Result [facility] [address] [place] [address] * (ABNORMAL) Lipid panel (04/04/2018 6:08 AM EDT) HDL 61 mg/dL [facility] Comment: Interpretation: Risk Level Males Decreased >45 mg/dL Average 40-45 mg/dL Increased <40 mg/dL CHOLESTEROL 141 0 - 240 mg/dL [facility] TRIGLYCERIDES 115 30 - 160 mg/dL [facility] LDL 57 50 - 129 mg/dL [facility] Comment: LDL levels in terms of risk for coronary heart disease: <100 mg/dL: Optimal 100-129 mg/dL: Near or above optimal 130-159 mg/dL: Borderline high 160-189 mg/dL: High >190 mg/dL: Very High CARDIAC RISK RATIO 2.3(L) 3.4 - 5.0 [facility] Blood 04/04/2018 6:08 AM EDT 04/04/2018 6:22 AM EDT Nela Garcia MD LAB BLOOD ORDERABLES Fi nal Result Performing Organization Address City/State/[facility] Co de Phone Number [address] [address] from Last 3 Months or Most Recently Relevant to Health Maintenance Insurance [employer] MEDEX SUPPLEMENT MEDICARE PART A & B Member Subscriber Plan / Payer (Ef fective 2012-Present) Name:Todd Zavala MD Member ID:[id number] Relation to Subscriber:Self Name:Todd Zavala MD Subscriber ID:[id number] Payer ID:[id number] Group ID:Not on file Type:Medicare Address: [facility] [employer] [address] [place] [address] [employer] MEDEX SUPPLEMENT MEDICARE PART A & B [employer] MEDEX SUPPLEMENT MEDICARE PART A & B [employer] MEDEX SUPPLEMENT MEDICARE PART A & B [employer] MEDEX SUPPLEMENT MEDICARE PART A & [place] [address] [address] [address] MEDEX SUPPLEMENT MEDICARE PART A & B [employer] MEDEX SUPPLEMENT MEDICARE PART A & B [employer] MEDEX SUPPLEMENT MEDICARE PART A & B Member Subscriber Plan / Payer ( fective 2012-) Name:Todd Zavala MD Member ID:[id number] Relation to Subscriber:Self Name:Todd Zavala MD Subscriber ID:[id number] Payer ID:[id number] Group ID:Not on file Type:Medicare Address: [email or web address] [address] [employer] MEDEX SUPPLEMENT MEDICARE PART A & B Member Subscriber Plan / Payer ( fective 2012-) Name:Todd Zavala MD Member ID:[id number] Relation to Subscriber:Self Name:Todd Zavala MD Subscriber ID:[id number] Payer ID:[id number] Group ID:Not on file Type:Medicare Address: [email or web address] [address] MEDICARE PART A & B BLUE CROSS MEDEX SUPPLEMENT Advance Directives For more information, please contact: [phone] (9AM - 5PM [facility], Sunday-Sunday) * Full Code (Presumed) (Latest Code Status on File) Date Activated Date Inactivated Comments 08/30/2018 10:47 AM 08/30/2018 4:56 PM * Full Code (Presumed) Date Activated Date Inactivated Comments 04/03/2018 10:11 AM 04/24/2018 6:37 PM * Full Code (Presumed) Date Activated Date Inactivated Comments 04/01/2018 2:10 PM 04/02/2018 8:46 PM Care Teams Grain Operator Relationship Specialty Start Date End Date Blanca Noble MD [address] [place] [address] PCP - General Pulmonary Disease 04/01/18 Additional Source Comments The information contained in this document represents components of the legal health record. It is not the complete legal health record.[facility]
--- OUTSIDE RECORDS SUMMARY | 2025-07-27 14:20 | XMS_ITS | Clinical Summary ---
Author Organization [facility] Address [address] [place] [address] Phone Care Team Providers Care Brick Baker Name Role Phone Ari Hatch MD Primary Care Provider [phone] Allergies No known active allergies Medications divalproex [...] Due Date Last Done Comments Pneumococcal Vaccine: 50+ Ye ars (1 of 2 - PCV) 1966 Influenza Vaccine (#1) 2025 Hepatitis B Vaccine Aged Out No longe r eligible based on patient's age to complete this topic Insurance [facility] Medicare [facility] Medicare Care Teams Brick Baker Relationship Specialty Start Date End Date Ari Hatch MD [address] [place] [address] [address] [place], [place] PCP - General Medical Oncology 12/01/21
--- OUTSIDE RECORDS SUMMARY | 2025-07-27 14:20 | XMS_ITS | Encounter Summary ---
Author Organization [facility] Address [address] [place] [address] Phone Care Team Providers Care Coil Winder Hand Name Role Phone Ari Hatch MD Primary Care Provider Encounter Details Date Type Department Care Team (Late st Contact Info) Description 02/11/2021 Orders Only [facility] [address] [place] [address] Provider, MD Zuri Social History Tobacco [...] on filedocumented in this encounter Care Teams Coil Winder Hand Relationship Specialty Start Date End Date Ari Hatch MD [address] [place] [address] [address] [place] PCP - General Medical Oncology 12/01/21 documented as of this encounter
--- OUTSIDE RECORDS SUMMARY | 2025-07-27 14:20 | XMS_ITS | Clinical Summary ---
Author Organization [facility] ity Address [address] [place] [address] Care Team Providers Care Restaurant Cashier Name Role Phone Unavailable Primary Care Provider [...] nts (1 - 1-dose 75+ series) 2022 Depression Screening 11/19/2024 COVID-19 Vaccine (1 - 2023-2 5 season) 2025 Influenza Vaccine (#1) 2025 HIB Vaccines Aged [...]
--- OUTSIDE RECORDS SUMMARY | 2025-07-27 14:20 | XMS_ITS | Patient Health Record ---
Author Organization Ari Hatch III, MD Address [address] [place] [address] Care Team Providers Care Pageant Director Name Role Phone Ari Hatch Primary Care [...] 0.2 - 1.3 BLD Negative Negative - US renal BI Reviewed date:09/01/2024 07:04:40 AM Interpretation: Performing Lab: Notes/Report: [address] [address] Ultrasound Report Signed Patient: Todd Zavala MR#: [id number] : 1945 Acct:[id number] Age/Sex: 79 / M ADM Date: 08/05/24 Loc: HO.US Attending Dr: Sam Killian MD Ordering Physician: Sam Killian MD Date of Service: 08/05/24 Procedure(s): US renal BI Accession Number(s): [id number] cc: Sam Killian MD; Ari Hatch MD [...] Magda Montiel MD 08/19/2024 02:36 PM EDT RP Dictated By: Magda Montiel MD Signed By: <Electronically signed by Magda Montiel MD in OV> 08/19/24 1436 DD/ 1130 TD/TT: 08/05/24 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 KILLIAN ALSO COPY [...] NRBC Abs Auto 0.000 0.0-0.012 X10*3/uL Comprehensive Porter. Panel Fa st Reviewed date:09/01/2024 07:04:40 AM Interpretation: Performing Lab:[facility], [address] [place] [phone] Notes/Report: COPY TO DR. KILLIAN ALSO COPY TO DR. ACKERMAN Sodium 141 135-145 mmol/L Potassium 4.3 3.3-5.1 mmol/L Chloride 110 96-108 mmol/L Carbon Dioxide 26 22-29 mmol/L Anion Gap 9 12-20 Blood Urea Nitrogen 56 9-16 mg/dL Creatinine 2.48 0.5-1.4 mg/dL Estimated Glomerular Filt Rate 25 NOTE: For -[place] Islander individuals, multiply the result by 1.210. Chronic [...] Panel Reviewed date:09/01/2024 07:04:40 AM Interpretation: Performing Lab:[facility], [address] [place] [phone] Notes/Report: COPY TO DR. KILLIAN ALSO COPY [...] Total Reviewed date:09/02/2024 11:50:09 AM Interpretation: Performing Lab:[facility], [address] [place] [phone] Notes/Report: COPY TO DR. KILLIAN ALSO COPY TO DR. ACKERMAN Prostate Specific Ag Total 10.9 < OR = 4.0 ng/mL Percent Free Prostate Spec Ag NOT CALCULATED >25 % (calc) PSA(ng/mL) Free PSA(%) Estimated(x) Probability of Cancer(as%) 0-2.5 (*) Approx. 1 2.6-4.0(1) 0-27(2) 24(3) 4.1-10(4) 0-10 56 11-15 28 16-20 20 21-25 16 >or =26 8 >10(+) N/A >50 References:(1)Chelo holcobm et al.:Urology 60: 469-474 (2002) (2)Lake et al.:J.Urol 168: 922-925 (2002) Free PSA(%) Sensitivity(%) Specificity(%) < or = 25 85 19 < or = 30 93 9 (3)Umaona et al.:SOFIE 277: 4226-3324 (1996) (4)Catalona et al.:SOFIE 279: 3264-8623 (1997) (x)These estimates vary with age, ethnicity, [...] mind. PSA was performed using the Leonard Somers Immunoassay method. Values obtained from different assay methods cannot be used interchangeably. PSA levels, regardless of value, should not be interpreted as absolute evidence of the presence or absence of disease. THIS TEST WAS PERFORMED AT: [employer] [address] [address] ADAM ORLANDO MD Free Prostate Spec Ag 3.7 Complete Blood Count Auto Di ff Reviewed date:01/30/2025 02:22:32 PM Interpretation: Performing Lab:[facility], [address] [place] [phone] Notes/Report: White Blood Count 5.7 4.8-10.8 X10*3/uL [...] 0.000 0.0-0.012 X10*3/uL Comprehensive Met. Panel Reviewed date:01/30/2025 02:22:32 PM Interpretation: Performing Lab:[facility], [address] [place] [phone] Notes/Report: Sodium 141 135-145 mmol/L Potassium 4.7 [...] Phosphatase 80 39-117 U/L Prostate Specific Antigen Reviewed date:01/30/2025 02:22:32 PM Interpretation: Performing Lab:[facility], [address] [place] [phone] Notes/Report: Prostate Specific Antigen 8.70 <0.05-4.0 ng/mL PSA methodology: Foreman Alinity i Chemiluminescent Microparticle Immunoassay (CMIA) Complete Blood Count Auto Di ff Reviewed date:05/20/2025 03:32:44 PM Interpretation: Performing Lab:[facility], [address] [place] [phone] Notes/Report: White Blood Count 4.9 4.8-10.8 X10*3/uL Red Blood Count 3.22 4.60-5.80 X10*6/uL Hemoglobin 10.0 14.0-18.0 g/dl Hematocrit 30.4 42.0-52.0 % Mean Corpuscular Volume 94.4 80.0-98.0 fL Mean Corpuscular Hemoglobin 31.1 27.0-33.0 pg Mean Corpuscular HGB Conc 32.9 31.0-36.0 g/dl Red Cell Distribution Width 14.8 11.0-16.0 % Platelet Count 145 160-400 X10*3/uL Mean Platelet Volume 11.4 9.4-12.4 fL Neutrophils Percent Auto 56.1 45-73 % Imm Gran Pct Auto 0.2 0.0-0.4 % Lymphocytes Percent Auto 29.0 20-40 % Monocytes Percent Auto 11.7 2-11 % Eosinophils Percent Auto 1.8 0-4 % Basophils Percent Auto 1.2 0-2 % NRBC Pct Auto 0.0 0.0-0.2 /100WBC Neutrophils Absolute Auto 2.7 2.0-8.3 x10*3/uL Imm Gran Abs Auto 0.01 0.00-0.03 X10*3/uL Lymphocytes Absolute Auto 1.4 1.2-4.9 X10*3/uL Monocytes Absolute Auto 0.6 0.1-1.2 X10*3/uL Eosinophils Absolute Auto 0.1 0.0-0.4 X10*3/uL Basophils Absolute Auto 0.1 0.0-0.2 X10*3/uL NRBC Abs Auto 0.000 0.0-0.012 X10*3/uL Comprehensive Met. Panel Reviewed date:05/20/2025 03:32:44 PM Interpretation: Performing Lab:[facility], [address] [place] [phone] Notes/Report: Sodium 140 135-145 mmol/L Potassium 4.8 3.3-5.1 mmol/L Chloride 111 96-108 mmol/L Carbon Dioxide 22 22-29 mmol/L Anion Gap 12 12-20 Blood Urea Nitrogen 47 9-16 mg/dL Creatinine 2.54 0.5-1.4 mg/dL Estimated Glomerular Filt Rate 25 Chronic Kidney Disease: Estimated GFR < 60 mL/min/1.73m2 Severe Kidney Disease: Estimated GFR < 15 mL/min/1.73m2 Glucose Random 89 60-115 mg/dL Calcium 8.8 8.4-10.2 mg/dL Bilirubin Total 0.3 0.0-1.0 mg/dL Aspartate Amino Transferase 30 5-37 U/L Alanine Aminotransferase 21 0-40 U/L Total Protein 6.0 6.5-8.0 g/dL Albumin Level 3.7 3.5-5.0 g/dL Alkaline Phosphatase 61 39-117 U/L Lipid Panel Reviewed date:05/20/2025 03:32:44 PM Interpretation: Performing Lab:[facility], [address] [place] [phone] Notes/Report: Triglycerides 65 <150 mg/dL Desirable Triglyceride: less than 150 mg/dL Borderline High Triglyceride 150-199 mg/dL High Triglyceride: 200-499 mg/dL Very High Triglyceride: greater than or equal to 5OO mg/dL Cholesterol 185 <200 mg/dL Desirable Cholesterol: less than 200 mg/dL Borderline High Cholesterol: 200-239 mg/dL High Cholesterol: greater than 239 mg/dL LDL Cholesterol Calculated 100 <100 mg/dL Desirable LDL: less than 100 mg/dL Near Optimal/Above Optimal LDL: 110-129 mg/dL Borderline High LDL: 130-159 mg/dL High LDL: 160-189 mg/dL Very High LDL: greater than or equal to 190 mg/dL HDL Cholesterol 72 >40 mg/dL Desirable HDL: greater than 40 mg/dL Note: This HDL assay may give artificially low results in patients with liver disease. Valproate Reviewed date:05/20/2025 03:32:44 PM Interpretation: Performing Lab:[facility], [address] [place] [phone] Notes/Report: Valproate 44.8 50.0-100.0 mcg/mL Reason For Referral No Information Medications Medication SIG (Take, Route, Frequency, Duration) Notes Start Date End Date Status Trintellix 10 MG 1 tablet Orally at b ed time Active Pramipexole Dihydrochloride 0.125 MG 1 tablet in the morning and 2 tablets in the evening Orally Active Tamsulosin HCl 0.4 MG 1 capsule Orally T wice a day Active lamoTRIgine 25 MG 1 tablet Orally 25 m g in the morning and 50mg in the evening Active Colace 100 MG 1 capsule as needed Orally Twice a day Active Divalproex Sodium 250 MG 1 tablet Orally One in the morning, 3 at bed time Active Multivitamin - 1 tablet Orally Once a day Active Immunizations Vaccine Route Administration Date Status [...] p-free high dose Unknown 08/28/2023 Administered COMIRNATY [facility] [employer] Unknown 08/28/2023 Administered Fluzone High-Dose (HD-IIV3) Unknown 08/14/2017 Administered COVID-19 Moderna [employer] Unknown 08/22/2024 Administered COVID Moderna Bivalent Unknown 09/29/2022 Administered [employer] COVID-19 12+ Unknown 08/28/2023 Administered Fluzone High-Dose (HD-IIV3) Unknown 08/22/2024 Administered Fluzone High-Dose (HD-IIV3) Unknown 08/17/2018 Administered Influenza no Preserv 3 and > Unknown 09/29/2014 Administered Influenza no Preserv 3 and > Unknown 09/29/2012 Administered Social History Tobacco Use: Social History [...] Never (0 point) Points 4 Interpretation Positive Problems Problem Type SNOMED Code ICD Code Onset Dates Problem Status W/U Status Risk Notes Problem 488500341 Anemia in chronic kidney disease (D63.1) Active confirmed He has a mil d normochromic normocytic anemia of chronic renal disease. Treatment is not necessary at this time.The hematocrit is 35.7 with a mean cell volume of 94.9. Problem 547721161 Chronic kidney disease, unspecified (N18.9) Active confirmed The current BUN and creatinine have increased. The BUN earlier this year was 40 and 44, now 58.Your creatinine was 2.17, then 2.48 and now 2.54. He was referred back to nephrology. Problem Hearing loss (71907873) Hearing loss (H91.90) Active confirmed Problem 321556706 Benign prostatic hyperplasia with lower urinary tract symptoms (N40.1) Active confirmed Eron bandages nocturia once or night. We have discussed lifestyle modification as a way to reduce nocturia. Problem 261589471 Elevated PSA (R97.20) Active confirmed His PSA is 8.0. Free PSA has been requested. Problem 916471622 Chronic kidney disease, unspecified CKD stage (N18.9) Active confirmed His current BU N is 56 with a creatinine of 2.48. His GFR is slightly diminished. He remains under the care of nephrology. Problem Hearing loss (83721354) Decreased hearing, unspecified laterality (H91.90) Active confirmed His hearing los s is stable and no change in his regimen was needed today. Problem 74139884 Recurrent major depressive disorder, in partial remission (F33.41) Active confirmed He and his psychiatrist or trying to optimize his antidepressant regimen.His depression currently feels slightly worse. He has the capacity to guaranntee is anxious not to harm himself. Problem 634790383 History of anemia (Z86.2) Active confirmed He has a mild anemia of chronic renal failure which requires no treatment. Problem 947573548 History of herniated intervertebral disc (Z87.39) Active confirmed This is an old problem. He has occasional twinges of back pain and is avoiding heavy lifting. The problem is stable and does not require treatment this time. Problem 856372048 History of bilateral inguinal hernias (Z87.19) Active confirmed The incisions are stable and he is asymptomatic. He is voiding severe heavy lifting. Problem 48427620 Recurrent major depressive disorder, in full remission (F33.42) Active confirmed He continues under the care of his mental health provider and no changes were necessary in his regimen. Vital Signs Heart Rate 72 /min 06/02/2025 152 Temperature 98.1 degrees Fahrenheit 06/02/2025 152 Blood pressure diastolic 66 mm Hg 06/02/2025 152 Height 69 in 06/02/2025 152 Blood pressure systolic 94 mm Hg 06/02/2025 152 Weight 152 lbs 06/02/2025 152 BMI 22.44 kg/m2 06/02/2025 152 Encounters Encounter Location Date Provider Diagnosis Ari Hatch III, MD [address] [place] [address] [place] [phone] 09/02/2024 Ari Hatch Anemia in chronic ki [...] Elevated PSA R97.20 Ari Hatch III, MD [address] [place] [address] [place] [phone] 01/30/2025 Ari Hatch Anemia in chronic ki dney disease D63.1 ; Recurrent major depressive disorder, in full remission F33.42 ; Chronic kidney disease, unspecified CKD stage N18.9 ; Benign prostatic hyperplasia with lower urinary tract symptoms N40.1 ; History of herniated intervertebral disc Z87.39 ; History of bilateral inguinal hernias Z87.19 and Decreased hearing, unspecified laterality H91.90 Ari Hatch III, MD [address] [place] [address] [place] [address] 06/02/2025 Ari Hatch Anemia in chronic ki dney disease D63.1 ; Chronic kidney disease, unspecified CKD stage N18.9 ; History of anemia Z86.2 ; Recurrent major depressive disorder, in partial remission F33.41 ; Benign prostatic hyperplasia with lower urinary tract symptoms N40.1 and History of herniated intervertebral disc Z87.39 Ari Hatch III, MD [address] [place] [address] [place] [phone] 08/04/2024 Ari Hatch Chronic kidney disea se, unspecified CKD stage N18.9 ; History of anemia Z86.2 ; Benign prostatic hyperplasia with lower urinary tract symptoms N40.1 ; Hyperlipidemia, unspecified hyperlipidemia type E78.5 and Elevated PSA R97.20 Ari Hatch III, MD [address] [place] [address] [place] [phone] 08/01/2024 Ari Hatch Assessments Encounter Date Diagnosis [...] remains under the care of nephrology. 01/30/2025 Anemia in chronic kidney disease (ICD-10 [...] no changes were necessary in his regimen. 06/02/2025 Anemia in chronic kidney disease (ICD-10 [...] tendon is mildly foreshortened. He is asymptomatic. 01/30/2025 Chronic kidney disease, unspecified CKD stage (ICD-10 - N18.9) His current BUN is 56 with a creatinine of 2.48. His GFR is slightly diminished. He remains under the care of nephrology. 06/02/2025 History of anemia (ICD-10 - Z86.2) He has a mild anemia of chronic renal failure which requires no treatment. 08/04/2024 Chronic kidney disease, unspecified CKD stage (ICD-10 - N18.9) 09/02/2024 History of anemia (ICD-10 - Z86.2) He has a mild anemia of chronic renal failure which requires no treatment. 01/30/2025 Benign prostatic hyperplasia with lower urinary tract symptoms (ICD-10 - N40.1) Eron bandages nocturia once or night. We have discussed lifestyle modification as a way to reduce nocturia. 06/02/2025 Recurrent major depressive disorder, in partial remission (ICD-10 - F33.41) He and his psychiatrist or trying to optimize his antidepressant regimen.His depression currently feels slightly worse. He has the capacity to guaranntee is anxious not to harm himself. 08/04/2024 History of anemia (ICD-10 - Z86.2) 09/02/2024 Recurrent major depressive disorder, in partial remission (ICD-10 - F33.41) He and his psychiatrist or trying to optimize his antidepressant regimen.His depression currently feels slightly worse. He has the capacity to guaranntee is anxious not to harm himself. 01/30/2025 History of herniated intervertebral disc (ICD-10 - Z87.39) This is an old problem. He has occasional twinges of back pain and is avoiding heavy lifting. The problem is stable and does not require treatment this time. 06/02/2025 Benign prostatic hyperplasia with lower urinary tract symptoms (ICD-10 - N40.1) Eron bandages nocturia once or night. We have discussed lifestyle modification as a way to reduce nocturia. 08/04/2024 Benign prostatic hyperplasia with lower urinary tract symptoms (ICD-10 - N40.1) 09/02/2024 Benign prostatic hyperplasia with lower urinary tract symptoms (ICD-10 - N40.1) Eron bandages nocturia once or night. We have discussed lifestyle modification as a way to reduce nocturia. 01/30/2025 History of bilateral inguinal hernias (ICD-10 - Z87.19) The incisions are stable and he is asymptomatic. He is voiding severe heavy lifting. 06/02/2025 History of herniated intervertebral disc (ICD-10 - Z87.39) This is an old problem. He has occasional twinges of back pain and is avoiding heavy lifting. The problem is stable and does not require treatment this time. 08/04/2024 Hyperlipidemia, unspecified hyperlipidemia type (ICD-10 - E78.5) 09/02/2024 History of herniated intervertebral disc (ICD-10 - Z87.39) This is an old problem. He has occasional twinges of back pain and is avoiding heavy lifting. The problem is stable and does not require treatment this time. 01/30/2025 Decreased hearing, unspecified laterality (ICD-10 - H91.90) His hearing loss is stable and no change in his regimen was needed today. 08/04/2024 Elevated PSA (ICD-10 - R97.20) 09/02/2024 Decreased hearing, unspecified laterality (ICD-10 - H91.90) His hearing loss is stable and no change in his regimen was needed today. 09/02/2024 Elevated PSA (ICD-10 - R97.20) His PSA is 8.0. Free PSA has been requested. Plan Of Treatment Pending Test Test Name Order Date PROFILE, FASTING (COMPREHENSIVE METABOLI C) 06/02/2025 PROFILE, FASTING (COMPREHENSIVE METABOLI C) 04/29/2024 PROFILE, FASTING (COMPREHENSIVE METABOLI C) 01/30/2025 PROFILE, FASTING (COMPREHENSIVE METABOLI C) 08/04/2024 PROFILE, RANDOM (COMPREHENSIVE METABOLIC ) 09/02/2024 LIPID PANEL 08/04/2024 VALPROIC ACID (VPA, DEPAKOTE) 01/30/2025 PSA, TOTAL 04/29/2024 CBC w DIFF 01/30/2025 CBC w DIFF 08/04/2024 CBC w DIFF 06/02/2025 BONE DENSITY DEXA 12/13/2023 CBC WITH AUTO DIFF 09/02/2024 CBC WITH AUTO DIFF 04/29/2024 Lipid Panel 04/29/2024 Lipid Panel 01/30/2025 Lipid Panel 06/02/2025 PSA Free and Total 08/04/2024 Next Appt Details Provider Name:Ari Hatch, 09/07/2025 11:00:00 AM, [address] [place] [address] [address], [place], [address], Provider Name:Ari Hatch, 02/02/2026 02:00:00 PM, [address] [place] [address] [address], [place], [address], Insurance Providers Payer Name Payer Address Payer Phone Subscriber Number Group Number Insured Name Patient Relationship to Insured Coverage Start Date Coverage End Date MEDICARE NGS [address] [place] [address] [id number] Todd Zavala Self - patient [facility] the insured [facility] [address] [place], [place] [id number] [phone] [id number] Todd Zavala Self - patient is the insured Medical (General) History Medical History History ICD Code Anemia D64.9 Depression F32.9 Nocturia R35.1 Renal cyst Q61.00 Vertigo R42 1996 L3-4 herniated disc right side benign prostatic hypertrophy CKD (chronic kidney disease) N18.9 Inflamation of the lower eye lid Hearing loss blepharitis Adenomatous polyp of colon 2022 Surgical History Surgery Date(Month/Year) colonoscopy Dr. harry dental surgery 2018 inguinal hernia repair right 1995 inguinal hernia repair left 2017 Hospitalization History Reason Date(Month/Year) No history [facility] 03/2018
--- OUTSIDE RECORDS SUMMARY | 2025-07-27 14:20 | XMS_ITS | Encounter Summary ---
Author Organization [facility] Address [address] [place] [address] Phone Care Team Providers Care Buff Wheel Fabricator Name Role Phone Ari Hatch MD Primary Care Provider [phone] Encounter Details Date Type Department Care Team (Late st Contact Info) Description 01/15/2023 Telephone [facility] [address] [place] [address] Leigh Christopher MA Social History Tobacco [...] any decisions. Please call him back at [phone] Thank you documented in this encounter Plan of Treatment Not on file documented as of this encounter Visit Diagnoses Not on filedocumented in this encounter Care Teams Buff Wheel Fabricator Relationship Specialty Start Date End Date Ari Hatch MD [address] [place] [address] [phone] [place] PCP - General Medical Oncology 12/01/21 documented as of this encounter
== END 2025-07-27 11:41 | disposition home or self-care (01) ==
LOC: HO.10HDL 11:40
PROVIDERS: Referring Provider Urology; Visit Provider Internal Medicine Hypertension Specialist
DX: N18.9 Chronic kidney disease, unspecified (principal); R97.20 Elevated prostate specific antigen [PSA]; Z12.5 Encounter for screening for malignant neoplasm of prostate
CPT/HCPCS: 36415; 80053; 81003; 82570; 83970; 84153; 84156; 85027

== ENCOUNTER 2025-07-30 16:28 | Outpatient (AMB) | payer MEDICARE, SELFPAY ==
--- OUTSIDE RECORDS SUMMARY | 2024-08-01 14:13 | XMS_ITS ---
Author Organization Ari Hatch III, MD Address [address] [place] [address] [place] [address] Care Team Providers Care Recruitment Manager Name Role Phone Ari Hatch Primary Care Provider [phone] REASON FOR VISIT Prostate F/U Info Social History Sex Assigned At : Social History Observation Description Sex Assigned At Male Encounters Encounter Location Date Provider Diagnosis Ari Hatch III, MD [address] [place] [address] [place] [address] 08/01/2024 Ari Hatch Plan Of Treatment Next Appt Details Provider Name:Ari Hatch, 09/07/2025 11:00:00 AM, [address] [place] [address] [place], [address], Provider Name:Ari Hatch, 02/02/2026 02:00:00 PM, [address] [place] [address] [place], [address], Progress Notes * Todd ZAVALADOB: [birth year] (79 yo M)Acc No.[id number]:08/01/2024 Patient: Todd Hunt :1945 A ge:79 Y S ex:Male Address:[place], [address] * true * Date: Generated for Printi ng/Faxing/eTransmitting on: 0 07/30/2025 06:56 PM EDT
--- OUTSIDE RECORDS SUMMARY | 2024-08-04 05:51 | XMS_ITS ---
Author Organization Ari Hatch III, MD Address [address] [place] [address] [place] [address] Care Team Providers Care Hadoop Java Developer Name Role Phone Ari Hatch Primary Care Provider REASON FOR VISIT ? changes to be made to his order from Dr Hatch Social History Sex Assigned At : Social History Observation Description Sex Assigned At Male Encounters Encounter Location Date Provider Diagnosis Ari Hatch III, MD [address] [place] [address] [place] [address] 08/04/2024 Ari Hatch Chronic kidney disea se, [...] Details Provider Name:Ari Hatch, 09/07/2025 11:00:00 AM, [address] [place] [address] [address], [place], [phone], Provider Name:Ari Hatch, 02/02/2026 02:00:00 PM, [address] [place] [address] [address], [place], [address], Progress Notes * Todd ZAVALA SamiraDOB: [birth year] (79 yo M)Acc No.[id number]:08/04/2024 Patient: Todd Hunt :1945 A ge:79 Y S ex:Male Address:[address] [place] [address] [place], [phone] Subjective: * Chief Complaints: * ? changes [...]
--- OUTSIDE RECORDS SUMMARY | 2024-09-02 10:30 | XMS_ITS ---
Author Organization Ari Hatch III, MD Address [address] [place] [address] Care Team Providers Care Director Of Real Estate Name Role Phone Ari Hatch Primary Care Provider [phone] Allergies Allergen (clinical drug ingredient) Drug/Non Drug Allergy documented on EMR Reaction Allergy Type Onset Date Status aripiprazole Abilify Unknown Drug Allergy Acti ve REASON FOR VISIT CKD, Depression, Hearing loss, Benign prostatic hypertrophy, Elevated PSA, Anemia Medications Medication SIG (Take, Route, Frequency, Duration) Notes Start Date End Date Status Divalproex Sodium 250 MG 1 tablet Orally One in the morning, 3 at bed time Active Colace 100 MG 1 capsule as needed Orally Twice a day Active lamoTRIgine 25 MG 1 tablet Orally 25 m g in the morning and 50mg in the evening Active Multivitamin - 1 tablet Orally Once a day Active Tamsulosin HCl 0.4 MG 1 capsule Orally T wice a day Active Pramipexole Dihydrochloride 0.125 MG 1 tablet in the morning and 2 tablets in the evening Orally Active Trintellix 10 MG 1 tablet Orally at b ed time Active Social History Tobacco Use: Social History Observation Description Date Details (start date - stop date) Never Smoker NA - NA Sex Assigned At : Social History Observation Description Sex Assigned At Male Tobacco Use/Smoking Question Answer Notes Patient is a nonsmoker Additional Findings: Tobacco Non-User Aggressive non-smoker Vital Signs Temperature 98.1 degrees Fahrenheit 09/02/20 24 Blood pressure systolic 95 mm Hg 09/02/20 24 Blood pressure diastolic 61 mm Hg 10/15/2 024 Heart Rate 72 /min 09/02/2024 Height 69 in 09/02/2024 Weight 159 lbs 09/02/2024 BMI 23.48 kg/m2 09/02/2024 Encounters Encounter Location Date Provider Diagnosis Ari Hatch III, MD [address] [place] [address] [place] [address] 09/02/2024 Ari Hatch Anemia in chronic ki dney disease D63.1 ; Chronic kidney disease, unspecified CKD stage N18.9 ; Dupuytren's contracture M72.0 ; History of anemia Z86.2 ; Recurrent major depressive disorder, in partial remission F33.41 ; Benign prostatic hyperplasia with lower urinary tract symptoms N40.1 ; History of herniated intervertebral disc Z87.39 ; Decreased hearing, unspecified laterality H91.90 and Elevated PSA R97.20 Assessments Encounter Date Diagnosis (ICD Code) Assessment Notes Treat ment Notes Treatment Clinical Notes 09/02/2024 Anemia in chronic kidney disease (ICD-10 - D63.1) He has a mild normochromic normocytic anemia of chronic renal disease. Treatment is not necessary at this time. 09/02/2024 Chronic kidney disease, unspecified CKD stage (ICD-10 - N18.9) His current BUN is 56 with a creatinine of 2.48. His GFR is slightly diminished. He remains under the care of nephrology. 09/02/2024 Dupuytren's contracture (ICD-10 - M72.0) 1 tendon is mildly foreshortened. He is asymptomatic. 09/02/2024 History of anemia (ICD-10 - Z86.2) He has a mild anemia of chronic renal failure which requires no treatment. 09/02/2024 Recurrent major depressive disorder, in partial remission (ICD-10 - F33.41) He and his psychiatrist or trying to optimize his antidepressant regimen.His depression currently feels slightly worse. He has the capacity to guaranntee is anxious not to harm himself. 09/02/2024 Benign prostatic hyperplasia with lower urinary tract symptoms (ICD-10 - N40.1) Eron bandages nocturia once or night. We have discussed lifestyle modification as a way to reduce nocturia. 09/02/2024 History of herniated intervertebral disc (ICD-10 - Z87.39) This is an old problem. He has occasional twinges of back pain and is avoiding heavy lifting. The problem is stable and does not require treatment this time. 09/02/2024 Decreased hearing, unspecified laterality (ICD-10 - H91.90) His hearing loss is stable and no change in his regimen was needed today. 09/02/2024 Elevated PSA (ICD-10 - R97.20) His PSA is 8.0. Free PSA has been requested. Plan Of Treatment Medication Medication Name Sig Start Date Stop Date Notes Divalproex Sodium 250 MG 1 tablet Orally One in the morning, 3 at bed time Colace 100 MG 1 capsule as needed Orally Twice a day lamoTRIgine 25 MG 1 tablet Orally 25 m g in the morning and 50mg in the evening Multivitamin - 1 tablet Orally Once a day Tamsulosin HCl 0.4 MG 1 capsule Orally T wice a day Pramipexole Dihydrochloride 0.125 MG 1 tablet in the morning and 2 tablets in the evening Orally Trintellix 10 MG 1 tablet Orally at b ed time Pending Test Test Name Order Date PROFILE, RANDOM (COMPREHENSIVE METABOLIC ) 09/02/2024 CBC WITH AUTO DIFF 09/02/2024 Next Appt Details Follow Up: January, Reason: Ro utine check-up Provider Name:Ari Hatch, 09/07/2025 11:00:00 AM, [address] [place] [address] [place], [place], [address], Provider Name:Ari Hatch, 02/02/2026 02:00:00 PM, [address] [place] [address] [place], [place], [address], Progress Notes * Todd ZAVALADOB: [birth year] (79 yo M)Acc No.[id number]:09/02/2024 Progress Notes Patient: Todd MILLER Provider: Vicenta Hatch MD :1945 A ge:79 Y S ex:Male Date:09/02/2024 Address:[address] [place] [address] [id number] Subjective: * Chief Complaints: * C KDDepressionHearing lossBenign prostatic hypertrophyElevated PSAAnemia * HPI: C OVID-19 Screening: Questions H ave you experienced fever, chills, cough, sore throat, shortness of breath, difficulty breathing, muscle aches, loss of taste or smell? N o H ave you been exposed to the virus within the last 10 days? N o H ave you travelled internationally in the last 10 days? N o H ave you been exposed to COVID-19 in the past? Y es * : The patient, a 79-year-old male, reported that his blood pressure has been fluctuating, with recent readings around 95, compared to 120 previously. He also mentioned that his PSA levels have been increasing, from 4 to 8, then to 9, and currently at 10.9. However, an MRI scan did not reveal any abnormalities. The patient also reported that he has been experiencing balance issues, but not as severe as before. He also mentioned that he has been feeling lightheaded, especially in the mornings. The patient also reported that he has been experiencing some contraction in his hands. * ROS: G eneral/Constitutional: pain o nly normal aches and pains. C hills d enies.?Fatigue a dmits. F ever d enies. E NT: Decreased hearing i n both ears. R espiratory: Cough d enies. C ardiovascular: Chest pain with exertion d enies. D yspnea on exertion?denies. S hortness of breath d enies. G astrointestinal: Constipation o ccasional. D ecreased appetite d enies. D iarrhea d enies. H eartburn d enies. N ausea d enies. R ectal bleeding d enies. V omiting d enies. H ematology: bruising d enies. p etechiae d enies. S wollen glands n one have been noted. G enitourinary: Frequent urination d enies. M usculoskeletal: Muscle aches d enies. P ainful joints d enies. S ciatica d enies. W eakness d enies. S kin: Itching d enies. R stephon d enies. S kin lesion(s)?denies. N eurologic: Difficulty speaking d enies. D izziness d enies.?Headache d enies. L ow back pain d enies. P sychiatric: Depressed mood w hich is mild. * Medical History: * Surgical History: i nguinal hernia repair left 2018inguinal hernia repair right 1995dental surgery 2018colonoscopy Dr. harry No history * Hospitalization/Major Diagno stic Procedure: C [facility] 03/2018No history * Family History: F ather: 38 yrs, Congestive heart failure, Polio, diagnosed with CVD. M other: 93 yrs, Stroke, atrial fibrillation, Dementia, diagnosed with CVD. S iblings: , Brother have A-fib. Osteoarthritis. Hx of substance abuse, COPD, Lung nodule.. M aternal uncle: artial fibrillation, stroke. M aternal aunt: artial fibrillation, stroke. 1 brother(s) , 1 sister(s) . 2 daughter(s) - healthy. . His sister have Hypertension. His brother , suffers from obesity and diabetes mellitus, a fibrillation, COPD, Alcoholism. He recently had a total knee replacement. His brother has a history of mental illness as well. His sister, Siobhan is a retired ice crusher and reinforcing iron worker helper. She has hypertension and she is overweight, Thyroid nodule, Benign gland. Uncle passed of throat cancer, Bladder cancer. * Social History: T obacco Use: T obacco Use/Smoking P tatiana is a n onsmoker A dditional Findings: Tobacco Non-User A ggressive non-smoker Linnea whittington was born in [facility]. He has been to [place] for several years. It is his third marriage. He has 2 children, Alanna and Fabiola who are healthy and well. He has 2 grandchildren. * Medications: T akingMultivitamin - Tablet 1 tablet Orally Once a day Trintellix 10 MG Tablet 1 tablet Orally at bed time Tamsulosin HCl 0.4 MG Capsule 1 capsule Orally Once in the evening lamoTRIgine 25 MG Tablet 1 tablet Orally 25 mg in the morning and 50mg in the evening Colace 100 MG Capsule 1 capsule as needed Orally Twice a day Divalproex Sodium 500 MG Tablet Delayed Release 1 tablet Orally Twice in the evening Taking Multivitamin - Tablet 1 tablet Orally Once a day Taking Trintellix 10 MG Tablet 1 tablet Orally at bed time Taking Tamsulosin HCl 0.4 MG Capsule 1 capsule Orally Once in the evening Taking lamoTRIgine 25 MG Tablet 1 tablet Orally 25 mg in the morning and 50mg in the evening Taking Colace 100 MG Capsule 1 capsule as needed Orally Twice a day Taking Divalproex Sodium 500 MG Tablet Delayed Release 1 tablet Orally Twice in the evening DiscontinuedPramipexole Dihydrochloride 0.125 MG Tablet 2 tablets in the evening Orally Medication List reviewed and reconciled with the patientDiscontinued Pramipexole Dihydrochloride 0.125 MG Tablet 2 tablets in the evening Orally Medication List reviewed and reconciled with the patient * Allergies: A bilify: Side Effectsno[Allergies Verified] Objective: * Vitals: H t: 69, Wt:159, BMI:23.48, BP:95/61, HR:72, Temp:98.1, Wt-k.12. * P ast Orders: Lab:Complete Blood Count Aut o Diff * Collection Date 08/29/2024 04/28/2024 01/18/2024 Collection Time 12:40 PM 10:47 AM 12:20 PM Order Date 08/29/2024 04/28/2024 01/18/2024 White Blood Count 4.6 L (Ref Range: 4.8-10.8 X10*3/uL) 5.6 (Ref Range: 4.8-10.8 X10*3/uL) 6.1 (Ref Range: 4.8-10.8 X10*3/uL) Red Blood Count 3.74 L (Ref Range: 4.60-5.80 X10*6/uL) 3.81 L (Ref Range: 4.60-5.80 X10*6/uL) 3.77 L (Ref Range: 4.60-5.80 X10*6/uL) Hemoglobin 11.8 L (Ref Range: 14.0-18.0 g/dl) 12.0 L (Ref Range: 14.0-18.0 g/dl) 11.8 L (Ref Range: 14.0-18.0 g/dl) Hematocrit 35.5 L (Ref Range: 42.0-52.0 %) 36.2 L (Ref Range: 42.0-52.0 %) 35.2 L (Ref Range: 42.0-52.0 %) Mean Corpuscular Volume 94.9 (Ref Range: 80.0-98.0 fL) 95.0 (Ref Range: 80.0-98.0 fL) 93.4 (Ref Range: 80.0-98.0 fL) Mean Corpuscular Hemoglobin 31.6 (Ref Range: 27.0-33.0 pg) 31.5 (Ref Range: 27.0-33.0 pg) 31.3 (Ref Range: 27.0-33.0 pg) Mean Corpuscular HGB Conc 33.2 (Ref Range: 31.0-36.0 g/dl) 33.1 (Ref Range: 31.0-36.0 g/dl) 33.5 (Ref Range: 31.0-36.0 g/dl) Red Cell Distribution Width 14.6 (Ref Range: 11.0-16.0 %) 14.7 (Ref Range: 11.0-16.0 %) 14.6 (Ref Range: 11.0-16.0 %) Platelet Count 168 (Ref Range: 160-400 X10*3/uL) 180 (Ref Range: 160-400 X10*3/uL) 159 L (Ref Range: 160-400 X10*3/uL) Mean Platelet Volume 10.6 (Ref Range: 9.4-12.4 fL) 11.1 (Ref Range: 9.4-12.4 fL) 11.0 (Ref Range: 9.4-12.4 fL) Neutrophils Percent Auto 50.7 (Ref Range: 45-73 %) 58.3 (Ref Range: 45-73 %) 52.5 (Ref Range: 45-73 %) Imm Gran Pct Auto 0.4 (Ref Range: 0.0-0.4 %) 0.4 (Ref Range: 0.0-0.4 %) 0.3 (Ref Range: 0.0-0.4 %) Lymphocytes Percent Auto 33.4 (Ref Range: 20-40 %) 26.2 (Ref Range: 20-40 %) 32.6 (Ref Range: 20-40 %) Monocytes Percent Auto 11.6 H (Ref Range: 2-11 %) 10.9 (Ref Range: 2-11 %) 11.9 H (Ref Range: 2-11 %) Eosinophils Percent Auto 2.6 (Ref Range: 0-4 %) 3.0 (Ref Range: 0-4 %) 1.7 (Ref Range: 0-4 %) Basophils Percent Auto 1.3 (Ref Range: 0-2 %) 1.2 (Ref Range: 0-2 %) 1.0 (Ref Range: 0-2 %) NRBC Pct Auto 0.0 (Ref Range: 0.0-0.2 /100WBC) 0.0 (Ref Range: 0.0-0.2 /100WBC) 0.0 (Ref Range: 0.0-0.2 /100WBC) Neutrophils Absolute Auto 2.3 (Ref Range: 2.0-8.3 x10*3/uL) 3.3 (Ref Range: 2.0-8.3 x10*3/uL) 3.2 (Ref Range: 2.0-8.3 x10*3/uL) Imm Gran Abs Auto 0.02 (Ref Range: 0.00-0.03 X10*3/uL) 0.02 (Ref Range: 0.00-0.03 X10*3/uL) 0.02 (Ref Range: 0.00-0.03 X10*3/uL) Lymphocytes Absolute Auto 1.5 (Ref Range: 1.2-4.9 X10*3/uL) 1.5 (Ref Range: 1.2-4.9 X10*3/uL) 2.0 (Ref Range: 1.2-4.9 X10*3/uL) Monocytes Absolute Auto 0.5 (Ref Range: 0.1-1.2 X10*3/uL) 0.6 (Ref Range: 0.1-1.2 X10*3/uL) 0.7 (Ref Range: 0.1-1.2 X10*3/uL) Eosinophils Absolute Auto 0.1 (Ref Range: 0.0-0.4 X10*3/uL) 0.2 (Ref Range: 0.0-0.4 X10*3/uL) 0.1 (Ref Range: 0.0-0.4 X10*3/uL) Basophils Absolute Auto 0.1 (Ref Range: 0.0-0.2 X10*3/uL) 0.1 (Ref Range: 0.0-0.2 X10*3/uL) 0.1 (Ref Range: 0.0-0.2 X10*3/uL) NRBC Abs Auto 0.000 (Ref Range: 0.0-0.012 X10*3/uL) 0.000 (Ref Range: 0.0-0.012 X10*3/uL) 0.000 (Ref Range: 0.0-0.012 X10*3/uL) * Lab:[facility] * Collection Date 08/29/2024 05/09/2023 01/10/2023 Collection Time 12:40 PM 12:48 PM 01:20 PM Order Date 08/29/2024 05/09/2023 01/10/2023 Sodium 141 (Ref Range: 135-145 mmol/L) 142 (Ref Range: 135-145 mmol/L) 143 (Ref Range: 135-145 mmol/L) Bilirubin Total 0.4 (Ref Range: 0.0-1.0 mg/dL) 0.4 (Ref Range: 0.0-1.0 mg/dL) 0.6 (Ref Range: 0.0-1.0 mg/dL) Aspartate Amino Transferase 24 (Ref Range: 5-37 U/L) 21 (Ref Range: 5-37 U/L) 23 (Ref Range: 5-37 U/L) Alanine Aminotransferase 27 (Ref Range: 0-40 U/L) 24 (Ref Range: 0-40 U/L) 31 (Ref Range: 0-40 U/L) Total Protein 6.6 (Ref Range: 6.5-8.0 g/dL) 6.2 L (Ref Range: 6.5-8.0 g/dL) 6.3 L (Ref Range: 6.5-8.0 g/dL) Albumin Level 3.9 (Ref Range: 3.5-5.0 g/dL) 3.7 (Ref Range: 3.5-5.0 g/dL) 3.9 (Ref Range: 3.5-5.0 g/dL) Alkaline Phosphatase 64 (Ref Range: 39-117 U/L) 63 (Ref Range: 39-117 U/L) 53 (Ref Range: 39-117 U/L) Potassium 4.3 (Ref Range: 3.3-5.1 mmol/L) 4.9 (Ref Range: 3.3-5.1 mmol/L) 5.7 H (Ref Range: 3.3-5.1 mmol/L) Chloride 110 H (Ref Range: 96-108 mmol/L) 111 H (Ref Range: 96-108 mmol/L) 108 (Ref Range: 96-108 mmol/L) Carbon Dioxide 26 (Ref Range: 22-29 mmol/L) 23 (Ref Range: 22-29 mmol/L) 28 (Ref Range: 22-29 mmol/L) Anion Gap 9 L (Ref Range: 12-20) 13 (Ref Range: 12-20) 13 (Ref Range: 12-20) Blood Urea Nitrogen 56 H (Ref Range: 9-16 mg/dL) 39 H (Ref Range: 9-16 mg/dL) 36 H (Ref Range: 9-16 mg/dL) Creatinine 2.48 H (Ref Range: 0.5-1.4 mg/dL) 2.25 H (Ref Range: 0.5-1.4 mg/dL) 2.24 H (Ref Range: 0.5-1.4 mg/dL) Estimated Glomerular Filt Rate 25 28 29 Glucose Fasting 93 (Ref Range: 60-99 mg/dL) 93 (Ref Range: 60-99 mg/dL) 82 (Ref Range: 60-99 mg/dL) Calcium 9.6 (Ref Range: 8.4-10.2 mg/dL) 9.5 (Ref Range: 8.4-10.2 mg/dL) 9.6 (Ref Range: 8.4-10.2 mg/dL) * Lab:Lipid Panel * Collection Date 08/29/2024 05/09/2023 01/10/2023 Collection Time 12:40 PM 12:48 PM 01:20 PM Order Date 08/29/2024 05/09/2023 01/10/2023 Triglycerides 79 (Ref Range: <150 mg/dL) 83 (Ref Range: mg/dL) 73 (Ref Range: mg/dL) Cholesterol 206 H (Ref Range: <200 mg/dL) 199 (Ref Range: mg/dL) 215 (Ref Range: mg/dL) LDL Cholesterol Calculated 115 H (Ref Range: <100 mg/dL) 117 (Ref Range: mg/dl) 133 (Ref Range: mg/dl) HDL Cholesterol 76 (Ref Range: >40 mg/dL) 66 (Ref Range: mg/dL) 68 (Ref Range: mg/dL) * Lab:PSA Free and Total * Collection Date 08/29/2024 06/30/2024 06/25/2024 Collection Time 12:40 PM 12:59 PM 12:52 PM Order Date 08/29/2024 06/30/2024 06/25/2024 Prostate Specific Ag Total 10.9 A (Ref Range: < OR = 4.0 ng/mL) 9.1 A (Ref Range: < OR = 4.0 ng/mL) 10.3 A (Ref Range: < OR = 4.0 ng/mL) Percent Free Prostate Spec Ag NOT CALCULATED (Ref Range: >25 % (calc)) 35 (Ref Range: >25 % (calc)) NOT CALCULATED (Ref Range: >25 % (calc)) Free Prostate Spec Ag 3.7 (Ref Range: ng/mL) 3.2 (Ref Range: ng/mL) 3.5 (Ref Range: ng/mL) ???Imaging:US renal BI (Order Date - 08/05/2024) (Performed Date - 08/05/2024) * Examination: G eneral Examination: GENERAL APPEARANCE: p leasant, well nourished, well developed, in no acute distress, calm and relaxed, overweight, man. HEAD: a traumatic, normocephalic. EYES: e bobby, perrla, anicteric, conjugate. EARS: n ormal, Wearing hearing aids. NOSE: s eptum intact. ORAL CAVITY: n ormal, unremarkable. NECK/THYROID: n o jugular venous distention, no carotid bruit, thyroid normal. LYMPH NODES: n o enlarged lymph nodes,spleen normal. SKIN: n o suspicious lesions, anicteric. HEART: n o clicks, gallops, murmurs, or rubs, regular rhythm, S1, S2 normal, no s3, or vascular bruits. LUNGS: c lear to auscultation . BREASTS: no masses palpable bilaterally. ABDOMEN: b owel sounds normal, no ascites, no organomegaly, no mass. RECTAL EXAM: n ot examined. MUSCULOSKELETAL: e xtremities unremarkable, no clubbing, cyanosis or edema, Mild Dupuytren's contracture left palm. PERIPHERAL PULSES: n ormal. NEUROLOGIC: a lert and oriented, cranial nerves 2-12 grossly intact, deep tendon reflexes 2+ symmetrical, motor strength normal upper and lower extremities, sensory exam intact. PSYCH: a lert, oriented. Assessment: * Assessment: 1. C hronic kidney disease, unspecified CKD stage - N18.9 (Primary) N otes :His current BUN is 56 with a creatinine of 2.48. His GFR is slightly diminished. He remains under the care of nephrology. 2 . A nemia in chronic kidney disease - D63.1 N otes :He has a mild normochromic normocytic anemia of chronic renal disease. Treatment is not necessary at this time. 3 . D upuytren's contracture - M72.0 N otes :1 tendon is mildly foreshortened. He is asymptomatic. 4 . H istory of anemia - Z86.2 N otes :He has a mild anemia of chronic renal failure which requires no treatment. 5 . R ecurrent major depressive disorder, in partial remission - F33.41 ? N otes :He and his psychiatrist or trying to optimize his antidepressant regimen.His depression currently feels slightly worse. He has the capacity to guaranntee is anxious not to harm himself. 6 . B enign prostatic hyperplasia with lower urinary tract symptoms - N40.1? Notes :Eron bandages nocturia once or night. We have discussed lifestyle modification as a way to reduce nocturia. 7 . H istory of herniated intervertebral disc - Z87.39 N otes :This is an old problem. He has occasional twinges of back pain and is avoiding heavy lifting. The problem is stable and does not require treatment this time. 8 . D ecreased hearing, unspecified laterality - H91.90 N otes :His hearing loss is stable and no change in his regimen was needed today. 9 . E levated PSA - R97.20 N otes :His PSA is 8.0. Free PSA has been requested. Plan: * Treatment: 2. O thers Continue Trintellix Tablet, 10 MG, 1 tablet, Orally, at bed time; C ontinue Pramipexole Dihydrochloride Tablet, 0.125 MG, 1 tablet in the morning and 2 tablets in the evening, Orally; C ontinue Tamsulosin HCl Capsule, 0.4 MG, 1 capsule, Orally, Twice a day; C ontinue lamoTRIgine Tablet, 25 MG, 1 tablet, Orally, 25 mg in the morning and 50mg in the evening; C ontinue Colace Capsule, 100 MG, 1 capsule as needed, Orally, Twice a day; C ontinue Divalproex Sodium Tablet Delayed Release, 250 MG, 1 tablet, Orally, One in the morning, 3 at bed time. * Procedure Codes: * Follow Up: M kristine (Reason: Routine check-up) * Images: * Sign off status: Completed true * Provider: Vicenta Hatch MD Date: Generated for Victor Manuel roth/Costa/Jose on: 0 07/30/2025 06:57 PM EDT History and Physical Notes * HPI (History of Present Illness) Category Sub-Category Detail Notes COVID-19 Screening Questions Have you had any new onset fever, chills, cough, congestion, sore throat, shortness of breath, muscle aches?: No Have you been exposed to the virus withi n the last 10 days?: No Have you travelled internationally in last 10 days?: No Have you been exposed to COVID-19 in the past?: Yes Examination Category Sub-Category Detail Notes General Examination GENERAL APPEARANCE: pleasant , well nourished, well developed, in no acute distress, calm and relaxed, overweight, man HEAD: atraumatic, normocep halic EYES: eomi, perrla, anicte allie, conjugate EARS: normal, Wearing hear ing aids NOSE: septum intact NECK/THYROID: no jugular venous di stention, no carotid bruit, thyroid normal HEART: no clicks, gallops, murmurs, or rubs, regular rhythm, S1, S2 normal, no s3, or vascular bruits LUNGS: clear to auscultatio n ABDOMEN: bowel sounds normal, no ascites, no organomegaly, no mass NEUROLOGIC: alert and oriented, cranial nerves 2-12 grossly intact, deep tendon reflexes 2+ symmetrical, motor strength normal upper and lower extremities, sensory exam intact SKIN: no suspicious lesion s, anicteric PERIPHERAL PULSES: normal BREASTS: no masses palpable b ilaterally MUSCULOSKELETAL: extremities unremark able, no clubbing, cyanosis or edema, Mild Dupuytren's contracture left palm LYMPH NODES: no enlarged lymph no clyde,spleen normal RECTAL EXAM: not examined PSYCH: alert, oriented ORAL CAVITY: normal, unremarkable
--- OUTSIDE RECORDS SUMMARY | 2025-01-30 10:00 | XMS_ITS ---
Author Organization Ari Hatch III, MD Address [address] [place] [address] Care Team Providers Care Groundskeeper Name Role Phone Ari Hatch Primary Care Provider [phone] Allergies Allergen (clinical drug ingredient) Drug/Non Drug [...] Date Provider Diagnosis Ari Hatch III, MD [address] [place] [address] [place] [address] 01/30/2025 Ari Hatch Anemia in chronic ki [...] OV Provider Name:Ari Hatch, 09/07/2025 11:00:00 AM, [address] [place] [address] [place], [place], [address], Provider Name:Ari Hatch, 02/02/2026 02:00:00 PM, [address] [place] [address] [place], [address], Progress Notes * Todd ZAVALA: [birth year] (79 yo M)Acc No.[id number]:01/30/2025 Progress Notes Patient: Todd MILLER Provider: Vicenta Hatch MD :1945 A ge:79 Y S ex:Male Date:01/30/2025 Address:[address] [place] [address], [place], [id number] Subjective: * Chief Complaints: * A nnual [...] Dr. harry * Hospitalization/Major Diagno stic Procedure: [facility] 03/2018No history * Family History: F ather: [...] well. His sister, Siobhan is a retired freelance operator and hopper attendant. She has hypertension and she is overweight, [...] P ositive H nelsy was born in [facility]. He [...] - * Procedure Codes: 8 1002 URINE-NO [id number] TEST FOR BLOOD, FECES * Follow Up: 4 Months (Reason: OV) * Images: * Sign off status: Completed true * Provider: Vicenta Hatch MD Date: 0 01/30/2025 Generated for Victor Manuel roth/Costa/Emmettitting on: 0 07/30/2025 06:56 PM EDT History and Physical Notes * [...]
--- OUTSIDE RECORDS SUMMARY | 2025-06-02 10:00 | XMS_ITS ---
Author Organization Ari Hatch III, MD Address [address] [place] [address] [address] [place] [address] Care Team Providers Care Unisaw Operator Name Role Phone Ari Hatch Primary Care Provider [phone] Allergies Allergen (clinical drug ingredient) Drug/Non Drug Allergy documented on EMR Reaction Allergy Type Onset Date Status aripiprazole Abilify Unknown Drug Allergy Acti ve REASON FOR VISIT Chronic kidney disease, Chronic depression, Anemia, Benign prostatic hypertrophy, Hearing loss Medications Medication SIG (Take, Route, Frequency, Duration) Notes Start Date End Date Status Trintellix 10 MG 1 tablet Orally at b ed time Active lamoTRIgine 25 MG 1 tablet Orally 25 m g in the morning and 50mg in the evening Active Colace 100 MG 1 capsule as needed Orally Twice a day Active Divalproex Sodium 250 MG 1 tablet Orally [...] Nonsmoker Additional Findings: Tobacco non-user Aggressive nonsmoker Vital Signs Temperature 98.1 degrees Fahrenheit 06/02/20 25 Blood pressure systolic 94 mm Hg 06/02/20 25 Blood pressure diastolic 66 mm Hg 07/15/2 025 Heart Rate 72 /min 06/02/2025 Height 69 in 06/02/2025 Weight 152 lbs 06/02/2025 BMI 22.44 kg/m2 06/02/2025 152 Encounters Encounter Location Date Provider Diagnosis Ari Hatch III, MD [address] [place] [address] [address] [place], [place] [address] 06/02/2025 Ari Hatch Anemia in chronic ki dney disease D63.1 ; Chronic kidney disease, unspecified CKD stage N18.9 ; History of anemia Z86.2 ; Recurrent major depressive disorder, in partial remission F33.41 ; Benign prostatic hyperplasia with lower urinary tract symptoms N40.1 and History of herniated intervertebral disc Z87.39 Assessments Encounter Date Diagnosis (ICD Code) Assessment Notes Treat ment Notes Treatment Clinical Notes 06/02/2025 Anemia in chronic kidney disease (ICD-10 - D63.1) He has a mild normochromic normocytic anemia of chronic renal disease. Treatment is not necessary at this time.The hematocrit is 35.7 with a mean cell volume of 94.9. 06/02/2025 Chronic kidney disease, unspecified CKD stage (ICD-10 - N18.9) His current BUN is 56 with a creatinine of 2.48. His GFR is slightly diminished. He remains under the care of nephrology. 06/02/2025 History of anemia (ICD-10 - Z86.2) He has a mild anemia of chronic renal failure which requires no treatment. 06/02/2025 Recurrent major depressive disorder, in partial remission (ICD-10 - F33.41) He and his psychiatrist or trying to optimize his antidepressant regimen.His depression currently feels slightly worse. He has the capacity to guaranntee is anxious not to harm himself. 06/02/2025 Benign prostatic hyperplasia with lower urinary tract symptoms (ICD-10 - N40.1) Eron bandages nocturia once or night. We have discussed lifestyle modification as a way to reduce nocturia. 06/02/2025 History of herniated intervertebral disc (ICD-10 - Z87.39) This is an old problem. He has occasional twinges of back pain and is avoiding heavy lifting. The problem is stable and does not require treatment this time. Plan Of Treatment Medication Medication Name Sig Start Date Stop Date Notes Trintellix 10 MG 1 tablet Orally at b ed time lamoTRIgine 25 MG 1 tablet Orally 25 m g in the morning and 50mg in the evening Colace 100 MG 1 capsule as needed Orally Twice a day Divalproex Sodium 250 MG 1 tablet Orally One in the morning, 3 at bed time Multivitamin - 1 tablet Orally Once a day Pramipexole Dihydrochloride 0.125 MG 1 tablet in the morning and 2 tablets in the evening Orally Tamsulosin HCl 0.4 MG 1 capsule Orally T wice a day Pending Test Test Name Order Date PROFILE, FASTING (COMPREHENSIVE METABOLI C) 06/02/2025 CBC w DIFF 06/02/2025 Lipid Panel 06/02/2025 Next Appt Details Follow Up: 3 Months, Reason: OV Provider Name:Ari Hatch, 09/07/2025 11:00:00 AM, [address] [place] [address] [address], [place], [address], Provider Name:Ari Hatch, 02/02/2026 02:00:00 PM, [address] [place] [address] [place], [place], [address], Progress Notes * Todd ZAVALADOB: [birth year] (80 yo M)Acc No.[id number]:06/02/2025 Progress Notes Patient: Terrie CARPENTER Todd Hogan Provider: Vicenta Hatch MD :1945 A ge:80 Y S ex:Male Date:06/02/2025 Address:[address] [place], [place] [id number] Subjective: * Chief Complaints: * C hronic kidney diseaseChronic depressionAnemiaBenign prostatic hypertrophyHearing loss * HPI: C OVID-19 Screening: He has been compliant with all of his medications.. He returns for medical management. Recent blood work was reviewed with him. His chronic renal disease is stable. He sees nephrology and psychiatry regularly. His depression is unchanged. He is functioning in daily life well. He admits to nocturia once a night.His hearing loss is well compensated. Questions H ave you had any new onset fever, chills, cough, congestion, sore throat, shortness of breath, muscle aches? N o * ROS: G eneral/Constitutional: pain o nly [...] enies. D iarrhea d enies. H eartburn o ccasional. N ausea d enies. R ectal bleeding [...] P sychiatric: Depressed mood w hich is moderate. * Medical History: * Surgical History: i nguinal hernia repair left 2018inguinal hernia repair right 1995dental surgery 2018colonoscopy Dr. harry * Hospitalization/Major Diagno stic Procedure: [facility] 03/2018No history * Family History: F [...] well. His sister, Siobhan is a retired ignition mechanic and shuttle car operator. She has hypertension and she is overweight, Thyroid nodule, Benign gland. Uncle passed of throat cancer, Bladder cancer. * Social History: T obacco Use: T obacco Control (Standard) T obacco use: N onsmoker A dditional Findings: Tobacco non-user A ggressive nonsmoker Linnea whittington was born in [facility]. He has been to [place] for [...] needed Orally Twice a day Divalproex Sodium 250 MG Tablet Delayed Release 1 tablet Orally One in the morning, 3 at bed time Multivitamin - Tablet 1 [...] Orally Twice a day Taking Divalproex Sodium 250 MG Tablet Delayed Release 1 tablet Orally One in the morning, 3 at bed time Taking Multivitamin - Tablet 1 tablet Orally Once a day Medication List reviewed and reconciled with the patient * Allergies: A bilify: Side Effectsno[Allergies Verified] Objective: * Vitals: H t: 69, Wt:152, BMI:22.44, BP:94/66, HR:72, Temp:98.1, Wt-k.95. 152. * P ast Orders: L ab:Valproate (Order Date - 05/19/2025) (Collection Date & Time - 05/19/2025 01:01 PM) Value Reference Range Valproate 44.8 L 50.0-100.0 - mcg/mL Lab:Lipid Panel * Collection Date 05/19/2025 08/29/2024 05/09/2023 Collection Time 01:01 PM 12:40 PM 12:48 PM Order Date 05/19/2025 08/29/2024 05/09/2023 Triglycerides 65 (Ref Range: <150 mg/dL) 79 (Ref Range: <150 mg/dL) 83 (Ref Range: mg/dL) Cholesterol 185 (Ref Range: <200 mg/dL) 206 H (Ref Range: <200 mg/dL) 199 (Ref Range: mg/dL) LDL Cholesterol Calculated 100 H (Ref Range: <100 mg/dL) 115 H (Ref Range: <100 mg/dL) 117 (Ref Range: mg/dl) HDL Cholesterol 72 (Ref Range: >40 mg/dL) 76 (Ref Range: >40 mg/dL) 66 (Ref Range: mg/dL) * Lab:Comprehensive Met. Panel * Collection Date 05/19/2025 01/20/2025 04/28/2024 Collection Time 01:01 PM 12:54 PM 10:47 AM Order Date 05/19/2025 01/20/2025 04/28/2024 Sodium 140 (Ref Range: 135-145 mmol/L) 141 (Ref Range: 135-145 mmol/L) 141 (Ref Range: 135-145 mmol/L) Bilirubin Total 0.3 (Ref Range: 0.0-1.0 mg/dL) 0.4 (Ref Range: 0.0-1.0 mg/dL) 0.4 (Ref Range: 0.0-1.0 mg/dL) Aspartate Amino Transferase 30 (Ref Range: 5-37 U/L) 26 (Ref Range: 5-37 U/L) 26 (Ref Range: 5-37 U/L) Alanine Aminotransferase 21 (Ref Range: 0-40 U/L) 20 (Ref Range: 0-40 U/L) 26 (Ref Range: 0-40 U/L) Total Protein 6.0 L (Ref Range: 6.5-8.0 g/dL) 7.5 (Ref Range: 6.5-8.0 g/dL) 6.9 (Ref Range: 6.5-8.0 g/dL) Albumin Level 3.7 (Ref Range: 3.5-5.0 g/dL) 4.1 (Ref Range: 3.5-5.0 g/dL) 3.9 (Ref Range: 3.5-5.0 g/dL) Alkaline Phosphatase 61 (Ref Range: 39-117 U/L) 80 (Ref Range: 39-117 U/L) 74 (Ref Range: 39-117 U/L) Potassium 4.8 (Ref Range: 3.3-5.1 mmol/L) 4.7 (Ref Range: 3.3-5.1 mmol/L) 4.9 (Ref Range: 3.3-5.1 mmol/L) Chloride 111 H (Ref Range: 96-108 mmol/L) 110 H (Ref Range: 96-108 mmol/L) 111 H (Ref Range: 96-108 mmol/L) Carbon Dioxide 22 (Ref Range: 22-29 mmol/L) 25 (Ref Range: 22-29 mmol/L) 22 (Ref Range: 22-29 mmol/L) Anion Gap 12 (Ref Range: 12-20) 11 L (Ref Range: 12-20) 13 (Ref Range: 12-20) Blood Urea Nitrogen 47 H (Ref Range: 9-16 mg/dL) 48 H (Ref Range: 9-16 mg/dL) 47 H (Ref Range: 9-16 mg/dL) Creatinine 2.54 H (Ref Range: 0.5-1.4 mg/dL) 2.16 H (Ref Range: 0.5-1.4 mg/dL) 2.39 H (Ref Range: 0.5-1.4 mg/dL) Estimated Glomerular Filt Rate 25 30 27 Glucose Random 89 (Ref Range: 60-115 mg/dL) 90 (Ref Range: 60-115 mg/dL) 88 (Ref Range: 60-115 mg/dL) Calcium 8.8 (Ref Range: 8.4-10.2 mg/dL) 9.4 (Ref Range: 8.4-10.2 mg/dL) 9.6 (Ref Range: 8.4-10.2 mg/dL) * Lab:Complete Blood Count Aut o Diff * Collection Date 05/19/2025 01/20/2025 08/29/2024 Collection Time 01:01 PM 12:54 PM 12:40 PM Order Date 05/19/2025 01/20/2025 08/29/2024 White Blood Count 4.9 (Ref Range: 4.8-10.8 X10*3/uL) 5.7 (Ref Range: 4.8-10.8 X10*3/uL) 4.6 L (Ref Range: 4.8-10.8 X10*3/uL) Red Blood Count 3.22 L (Ref Range: 4.60-5.80 X10*6/uL) 3.76 L (Ref Range: 4.60-5.80 X10*6/uL) 3.74 L (Ref Range: 4.60-5.80 X10*6/uL) Hemoglobin 10.0 L (Ref Range: 14.0-18.0 g/dl) 11.9 L (Ref Range: 14.0-18.0 g/dl) 11.8 L (Ref Range: 14.0-18.0 g/dl) Hematocrit 30.4 L (Ref Range: 42.0-52.0 %) 35.7 L (Ref Range: 42.0-52.0 %) 35.5 L (Ref Range: 42.0-52.0 %) Mean Corpuscular Volume 94.4 (Ref Range: 80.0-98.0 fL) 94.9 (Ref Range: 80.0-98.0 fL) 94.9 (Ref Range: 80.0-98.0 fL) Mean Corpuscular Hemoglobin 31.1 (Ref Range: 27.0-33.0 pg) 31.6 (Ref Range: 27.0-33.0 pg) 31.6 (Ref Range: 27.0-33.0 pg) Mean Corpuscular HGB Conc 32.9 (Ref Range: 31.0-36.0 g/dl) 33.3 (Ref Range: 31.0-36.0 g/dl) 33.2 (Ref Range: 31.0-36.0 g/dl) Red Cell Distribution Width 14.8 (Ref Range: 11.0-16.0 %) 14.6 (Ref Range: 11.0-16.0 %) 14.6 (Ref Range: 11.0-16.0 %) Platelet Count 145 L (Ref Range: 160-400 X10*3/uL) 176 (Ref Range: 160-400 X10*3/uL) 168 (Ref Range: 160-400 X10*3/uL) Mean Platelet Volume 11.4 (Ref Range: 9.4-12.4 fL) 11.3 (Ref Range: 9.4-12.4 fL) 10.6 (Ref Range: 9.4-12.4 fL) Neutrophils Percent Auto 56.1 (Ref Range: 45-73 %) 59.8 (Ref Range: 45-73 %) 50.7 (Ref Range: 45-73 %) Imm Gran Pct Auto 0.2 (Ref Range: 0.0-0.4 %) 0.4 (Ref Range: 0.0-0.4 %) 0.4 (Ref Range: 0.0-0.4 %) Lymphocytes Percent Auto 29.0 (Ref Range: 20-40 %) 26.6 (Ref Range: 20-40 %) 33.4 (Ref Range: 20-40 %) Monocytes Percent Auto 11.7 H (Ref Range: 2-11 %) 10.2 (Ref Range: 2-11 %) 11.6 H (Ref Range: 2-11 %) Eosinophils Percent Auto 1.8 (Ref Range: 0-4 %) 2.3 (Ref Range: 0-4 %) 2.6 (Ref Range: 0-4 %) Basophils Percent Auto 1.2 (Ref Range: 0-2 %) 0.7 (Ref Range: 0-2 %) 1.3 (Ref Range: 0-2 %) NRBC Pct Auto 0.0 (Ref Range: 0.0-0.2 /100WBC) 0.0 (Ref Range: 0.0-0.2 /100WBC) 0.0 (Ref Range: 0.0-0.2 /100WBC) Neutrophils Absolute Auto 2.7 (Ref Range: 2.0-8.3 x10*3/uL) 3.4 (Ref Range: 2.0-8.3 x10*3/uL) 2.3 (Ref Range: 2.0-8.3 x10*3/uL) Imm Gran Abs Auto 0.01 (Ref Range: 0.00-0.03 X10*3/uL) 0.02 (Ref Range: 0.00-0.03 X10*3/uL) 0.02 (Ref Range: 0.00-0.03 X10*3/uL) Lymphocytes Absolute Auto 1.4 (Ref Range: 1.2-4.9 X10*3/uL) 1.5 (Ref Range: 1.2-4.9 X10*3/uL) 1.5 (Ref Range: 1.2-4.9 X10*3/uL) Monocytes Absolute Auto 0.6 (Ref Range: 0.1-1.2 X10*3/uL) 0.6 (Ref Range: 0.1-1.2 X10*3/uL) 0.5 (Ref Range: 0.1-1.2 X10*3/uL) Eosinophils Absolute Auto 0.1 (Ref Range: 0.0-0.4 X10*3/uL) 0.1 (Ref Range: 0.0-0.4 X10*3/uL) 0.1 (Ref Range: 0.0-0.4 X10*3/uL) Basophils Absolute Auto 0.1 (Ref Range: 0.0-0.2 X10*3/uL) 0.0 (Ref Range: 0.0-0.2 X10*3/uL) 0.1 (Ref Range: 0.0-0.2 X10*3/uL) NRBC Abs Auto 0.000 (Ref Range: 0.0-0.012 X10*3/uL) 0.000 (Ref Range: 0.0-0.012 X10*3/uL) 0.000 (Ref Range: 0.0-0.012 X10*3/uL) * Examination: G eneral Examination: GENERAL APPEARANCE: p leasant, well nourished, well developed, in no acute distress, calm and relaxed, man. HEAD: a traumatic, normocephalic. EYES: e bobby, perrla, anicteric, conjugate. EARS: n ormal. NOSE: s eptum intact. ORAL CAVITY: n [...] extremities, sensory exam intact. PSYCH: a lert, oriented, mood depressed. ? Assessment: * Assessment: 1. C hronic kidney [...] mean cell volume of 94.9. 3 . H istory of anemia - Z86.2 N otes :He has a mild anemia of chronic renal failure which requires no treatment. 4 . R ecurrent major depressive disorder, in partial remission - F33.41 ? N otes :He and his psychiatrist or trying to optimize his antidepressant regimen.His depression currently feels slightly worse. He has the capacity to guaranntee is anxious not to harm himself. 5 . B enign prostatic hyperplasia with lower urinary tract symptoms - N40.1? Notes :Eron bandages nocturia once or night. We have discussed lifestyle modification as a way to reduce nocturia. 6 . H istory of herniated intervertebral disc - Z87.39 N otes :This is an old problem. He has occasional twinges of back pain and is avoiding heavy lifting. The problem is stable and does not require treatment this time. Plan: * Treatment: 2. O thers Continue [...] time. * Procedure Codes: * Follow Up: 3 Months (Reason: OV) * Images: * Sign off status: Completed true * Provider: Vicenta Hatch MD Date: 0 06/02/2025 Generated for Victor Manuel roth/Costa/Emmettitting on: 07/30/2025 06:56 PM EDT History and Physical Notes * HPI (History of Present Illness) Category Sub-Category Detail Notes COVID-19 Screening Questions Have you had any new onset fever, chills, cough, congestion, sore throat, shortness of breath, muscle aches?: No Examination Category Sub-Category Detail Notes General Examination GENERAL APPEARANCE: pleasant , well nourished, well developed, in no acute distress, calm and relaxed, man HEAD: atraumatic, normocep halic EYES: eomi, perrla, anicte allie, conjugate EARS: normal NOSE: septum intact NECK/THYROID: no jugular venous [...] normal RECTAL EXAM: not examined PSYCH: alert, oriented, moo d depressed ORAL CAVITY: normal, unremarkable
--- NOTE | 2025-07-30 16:28 | HO.NEPHOV ---
Vital Signs 07/30/25 16:29 Height 5 ft 10 in Weight 155 lb BMI 22.2 BP 98/62 Blood Pressure Location Lt brachial Position Sitting Pulse 89 Pulse Source Pulse Oximeter Pulse Oximetry (%) 97 Oxygen Delivery Method Room Air Intake Visit Reasons: 6 MO FU-Conf Programmer Operator Numerical Control Required: No Accompanied by: Self / Same As Patient Allergies No Known Allergies Allergy (Verified 07/30/25 16:30) Medication List - Last Reconciled 07/30/25 by Sam Killian MD [Colace 100 mg] divalproex ER 1,000 mg PO BEDTIME lamotrigine 75 mg PO DAILY [multivitamin ] pramipexole 0.25 mg PO QPM tamsulosin 0.4 mg PO .nightly vortioxetine (Trintellix) 10 mg PO BEDTIME HPI Comments Details: 79 yr old man with a h/o [place] use in the past with CKD Here for semi annual follow up Baseline cr is 2.1 Bumped to 2.5 last month and returned to 2.15 No new issues Recent elevation in PSA Being followed by urology- Had MRI 01/26/25 No new issues 07/31/25 The patient is a 80-year-old male presenting with a follow-up for chronic disease management. Chronic Kidney Disease is stable with creatinine at 2.39 mg/dL and eGFR at 26 mL/min/1.73m?. No urination issues or leg swelling reported. Hypertension with recent blood pressure readings of 98/60 mmHg, 108 mmHg, and 102 mmHg. No dizziness reported with low blood pressure. Parathyroid hormone elevated at 110 pg/mL due to Chronic Kidney Disease. Advised to take 1000 units of vitamin D daily. Elevated PSA decreased to 9.8 ng/mL after stopping finasteride. Urologist monitoring with potential MRI follow-up. Medical History: - Chronic Kidney Disease - Hypertension - Elevated Parathyroid Hormone - Elevated Prostate-Specific Antigen (PSA) Medications: - Vitamin D: 1000 units daily for elevated parathyroid hormone Social History: - Adequate fluid intake reported - Consumes orange juice regularly Diagnostic Results: - Labs: Creatinine 2.39 mg/dL, eGFR 26 mL/min/1.73m?, BUN 52 mg/dL, Potassium 5.1 mmol/L, Hemoglobin 11.6 g/dL - Labs: Parathyroid hormone 110 pg/mL, PSA 9.8 ng/mL [facility] Medical History Anemia BPH (benign prostatic hyperplasia) Depression CRI (chronic renal insufficiency) Surgical History H/O inguinal hernia repair H/O colonoscopy Family History Brother Chronic kidney disease Atrial fibrillation Obesity Osteoarthritis Mother Atrial fibrillation Stroke Social History Alcohol intake: current Patient Tobacco Use Status: Never used Tobacco Current occupational status: retired Current occupation: right hand dominant Physical Exam Vital Signs: Last Vital Signs Pulse 89 07/30/25 16:29 BP 98/62 07/30/25 16:29 Pulse Ox 97 07/30/25 16:29 Oxygen Delivery Method Room Air 07/30/25 16:29 BMI result Body Mass Index 22.2 Const General: comfortable; No acute distress Orientation/consciousness: patient oriented x3 Eyes General: appearance normal, both eyes and all related structures Visual [place]: normal visual [place] by confrontation Neck Neck: Yes supple and Yes no JVD Resp Effort & Inspection: normal respiratory effort and respiratory effort not decreased Auscultation: rhonchi Cardio Palpation: no palpable S3 and no palpable S4 Heart sounds: no rubs GI Inspection: Yes normal to inspection Palpation (GI): Soft to palpation Percussion: Yes normal to percussion Auscultation: normal bowel sounds General: Yes no CVA tenderness Back/Spine/Pelvis Back: no CVA tenderness Skin General skin exam: no petechiae and no purpura Neuro General: patient oriented x3 and no focal motor deficits Extrem General: No clubbing and No edema Results Reviewed Nephrology Results: Hgb, (14.0-18.0) 11.6 g/dl L 07/27/25 WBC, (4.8-10.8) 5.7 X10*3/uL 07/27/25 Plt Count, (160-400) 178 X10*3/uL 07/27/25 Sodium, (135-145) 143 mmol/L 07/27/25 Potassium, (3.3-5.1) 5.1 mmol/L 07/27/25 Chloride, (96-108) 111 mmol/L H 07/27/25 Carbon Dioxide, (22-29) 24 mmol/L 07/27/25 BUN, (9-16) 52 mg/dL H 07/27/25 Creatinine, (0.5-1.4) 2.39 mg/dL H 07/27/25 Calcium, (8.4-10.2) 9.4 mg/dL Δ 07/27/25 PTH Intact, (8.7-77.1) 110.2 pg/mL H 07/27/25 Urine Protein, (Neg-Trace) Negative mg/dL 07/27/25 Urine Creatinine 45.75 mg/dL 07/27/25 Renal US 08/05/24 Assessment & Plan Assessment & Plan (1) CRI (chronic renal insufficiency): Code(s): N18.9 - Chronic kidney disease, unspecified Category: Medical (2) Renal cyst: Code(s): N28.1 - Cyst of kidney, acquired Category: Medical Plan 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 in the past Renal function is stable Continue to avoid nephrotoxins including NSAIDS s/p Mild hyperkalemia Stay on low K diet Recent K was normal Mild stable anemia No indication for OLIVIER BP is acceptable h/o Renal cyst follow renal ultrasound in jul 2024 shows benign cysts- No follow up recommended 07/31/25 Renal function is stable BP acceptable Elevated PTH due to SHPT - Take 1000 units of vitamin D daily. - Drink plenty of fluids daily. - Monitor blood pressure regularly. - Follow up with urologist as advised. Orders: Orders Parathyroid Hormone Intact 6 Months N18.9 - Chronic kidney disease, unspecified Complete Blood Count no Diff 6 Months N18.9 - Chronic kidney disease, unspecified Basic Metabolic Panel 6 Months N18.9 - Chronic kidney disease, unspecified Coding Level of Care Code Est Pt Level 4 (87287) Diagnoses CRI (chronic renal insufficiency) N18.9 Renal cyst N28.1
[2025-07-30 16:29] VITALS: BP 98/62; PULSE 89; O2SAT 97; BMI 22.2
--- OUTSIDE RECORDS SUMMARY | 2025-07-30 18:56 | XMS_ITS | Encounter Summary ---
Author Organization [facility] Address [address] [place] [address] Phone Care Team Providers Care Life Specialist Name Role Phone Ari Hatch MD Primary Care Provider [phone] Encounter Details Date Type Department Care Team (Late st Contact Info) Description 01/15/2023 Telephone [facility] [address] [place] [address] Leigh Christopher MA Social History Tobacco [...] any decisions. Please call him back at [phone] Thank you documented in this encounter Plan of Treatment Not on file documented as of this encounter Visit Diagnoses Not on filedocumented in this encounter Care Teams Life Specialist Relationship Specialty Start Date End Date Ari Hatch MD [address] [place] [address] [address] [place] PCP - General Medical Oncology 12/01/21 documented as of this encounter
--- OUTSIDE RECORDS SUMMARY | 2025-07-30 18:56 | XMS_ITS | Encounter Summary ---
Author Organization [facility] Address [address] [place] [address] Phone Care Team Providers Care Rn Imcu Name Role Phone Ari Hatch MD Primary Care Provider [phone] Encounter Details Date Type Department Care Team (Late st Contact Info) Description 02/11/2021 Orders Only [facility] [address] [place] [address] Provider, MD Zuri Social History Tobacco [...] on filedocumented in this encounter Care Teams Rn Imcu Relationship Specialty Start Date End Date Ari Hatch MD [address] [place] [address] [address] [place] PCP - General Medical Oncology 12/01/21 documented as of this encounter
--- OUTSIDE RECORDS SUMMARY | 2025-07-30 18:56 | XMS_ITS | Clinical Summary ---
Author Organization [facility] Address [address] [place] [address] Phone Care Team Providers Care Print Buyer Name Role Phone Ari Hatch MD Primary Care Provider [phone] Allergies No known active allergies Medications divalproex [...] patient's age to complete this topic Insurance [facility] Medicare [facility] Medicare Care Teams Print Buyer Relationship Specialty Start Date End Date Ari Hatch MD [address] [place] [address] [address] [place] PCP - General Medical Oncology 12/01/21
--- OUTSIDE RECORDS SUMMARY | 2025-07-30 18:57 | XMS_ITS | Encounter Summary ---
Author Organization [facility] Address [address] [place] [address] Phone Care Team Providers Care Echocardiologist Name Role Phone Blanca Noble MD Primary Care Provider Encounter Details Date Type Department Care Team (Late st Contact Info) Description 08/30/2018 Procedure Pass [facility] PERIOPERATIVE DEPT [address] [place] [address] Social History Tobacco Use Types Packs/Day Years [...] on filedocumented in this encounter Care Teams Echocardiologist Relationship Specialty Start Date End Date Blanca Noble MD [address] [place] [address] PCP - General Pulmonary Disease 04/01/18 documented as of this encounter Additional Source Comments The information contained in this document represents components of the legal health record. It is not the complete legal health record.[facility]
--- OUTSIDE RECORDS SUMMARY | 2025-07-30 18:57 | XMS_ITS | Patient Health Record ---
Author Organization Ari Hatch III, MD Address [address] [place] [address] Care Team Providers Care Health And Safety Consultant Name Role Phone Ari Hatch Primary Care [...] date:09/01/2024 07:04:40 AM Interpretation: Performing Lab: Notes/Report: [address] [address] Ultrasound Report Signed Patient: Todd Zavala MR#: [id number] : 1945 Acct:[id number] Age/Sex: 79 / M ADM Date: 08/05/24 Loc: HO.US Attending Dr: Sam Killian MD Ordering Physician: Sam Killian MD Date of Service: 08/05/24 Procedure(s): US renal BI Accession Number(s): [id number] cc: Sam Killian MD; Ari Hatch MD [...] 08/19/24 1436 DD/ 1130 TD/TT: 08/05/24 1130 Radiation Officer: [place] [address] Ultrasound Report Signed Patient: Clint Zavala MR#: [id number] : 1945 Acct:[id number] Age/Sex: 79 / M ADM Date: 08/05/24 Loc: . Attending Dr: Sam Killian MD Ordering Physician: Sam Killian MD Date of Service: 08/05/24 Procedure(s): US sharon [place] Accession Number(s): [id number] cc: Sam Killian MD; Ari Hatch MD [...] 08/19/24 1436 DD/ 1130 TD/TT: 08/05/24 1130 Radiation Officer: Complete Blood Count Auto Di ff Reviewed date:09/01/2024 07:04:40 AM Interpretation: Performing Lab:[facility], [address] [place] [phone] Notes/Report: COPY TO DR. KILLIAN ALSO COPY [...] NRBC Abs Auto 0.000 0.0-0.012 X10*3/uL Comprehensive [place]. Panel Fa st Reviewed date:09/01/2024 07:04:40 AM Interpretation: Performing Lab:[facility], [address] [place] [phone] Notes/Report: COPY TO DR. KILLIAN ALSO COPY TO DR. ACKERMAN Sodium 141 135-145 mmol/L Potassium 4.3 3.3-5.1 mmol/L Chloride 110 96-108 mmol/L Carbon Dioxide 26 22-29 mmol/L Anion Gap 9 12-20 Blood Urea Nitrogen 56 9-16 mg/dL Creatinine 2.48 0.5-1.4 mg/dL Estimated Glomerular Filt Rate 25 NOTE: For -[place] Citizen individuals, multiply the result by 1.210. Chronic [...] Panel Reviewed date:09/01/2024 07:04:40 AM Interpretation: Performing Lab:[facility], [address] [place] [address] Notes/Report: COPY TO DR. KILLIAN ALSO COPY [...] Total Reviewed date:09/02/2024 11:50:09 AM Interpretation: Performing Lab:[facility], [address] [place] [phone] Notes/Report: COPY TO DR. KILLIAN ALSO COPY [...] 30 93 9 (3)Umaona et al.:SOFIE 277: 6265-4394 (1996) (4)Catalona et al.:SOFIE 279: 5066-9116 (1997) (x)These estimates vary with age, ethnicity, [...] of disease. THIS TEST WAS PERFORMED AT: [facility] [address] [address] ADAM ORLANDO MD Free Prostate Spec Ag 3.7 Complete Blood Count Auto Di ff Reviewed date:01/30/2025 02:22:32 PM Interpretation: Performing Lab:[facility], [address] [place] [phone] Notes/Report: White Blood Count 5.7 4.8-10.8 X10*3/uL [...] Panel Reviewed date:01/30/2025 02:22:32 PM Interpretation: Performing Lab:[facility], [address] [place] [phone] Notes/Report: Sodium 141 135-145 mmol/L Potassium 4.7 [...] Antigen Reviewed date:01/30/2025 02:22:32 PM Interpretation: Performing Lab:[facility], [address] [place] [phone] Notes/Report: Prostate Specific Antigen 8.70 <0.05-4.0 ng/mL PSA methodology: Foreman Alinity i Chemiluminescent Microparticle Immunoassay (CMIA) Complete Blood Count Auto Di ff Reviewed date:05/20/2025 03:32:44 PM Interpretation: Performing Lab:[facility], [address] [place] [phone] Notes/Report: White Blood Count 4.9 4.8-10.8 X10*3/uL [...] Panel Reviewed date:05/20/2025 03:32:44 PM Interpretation: Performing Lab:[facility], [address] [place] [phone] Notes/Report: Sodium 140 135-145 mmol/L Potassium 4.8 [...] Panel Reviewed date:05/20/2025 03:32:44 PM Interpretation: Performing Lab:[facility], [address] [place] [phone] Notes/Report: Triglycerides 65 <150 mg/dL Desirable Triglyceride: [...] Valproate Reviewed date:05/20/2025 03:32:44 PM Interpretation: Performing Lab:[facility], [address] [place] [phone] Notes/Report: Valproate 44.8 50.0-100.0 mcg/mL Reason For [...] p-free high dose Unknown 08/28/2023 Administered [employer] Unknown 08/28/2023 Administered Fluzone High-Dose (HD-IIV3) Unknown 08/14/2017 Administered COVID-19 Moderna SPIKE[employer]AX Unknown 08/22/2024 Administered COVID Moderna Bivalent Unknown 09/29/2022 Administered [employer] COVID-19 12+ Unknown 08/28/2023 Administered Fluzone High-Dose [...] Problem Status W/U Status Risk Notes Problem 929338078 Anemia in chronic kidney disease (D63.1) Active confirmed He has a mil d normochromic normocytic anemia of chronic renal disease. Treatment is not necessary at this time.The hematocrit is 35.7 with a mean cell volume of 94.9. Problem 007584975 Chronic kidney disease, unspecified (N18.9) Active confirmed The current BUN and creatinine have increased. The BUN earlier this year was 40 and 44, now 58.Your creatinine was 2.17, then 2.48 and now 2.54. He was referred back to nephrology. Problem Hearing loss (09103929) Hearing loss (H91.90) Active confirmed Problem 710481661 Benign prostatic hyperplasia with lower urinary tract symptoms (N40.1) Active confirmed Eron bandages nocturia once or night. We have discussed lifestyle modification as a way to reduce nocturia. Problem 064244341 Elevated PSA (R97.20) Active confirmed His PSA is 8.0. Free PSA has been requested. Problem 129642922 Chronic kidney disease, unspecified CKD stage (N18.9) Active confirmed His current BU N is 56 with a creatinine of 2.48. His GFR is slightly diminished. He remains under the care of nephrology. Problem Hearing loss (90378797) Decreased hearing, unspecified laterality (H91.90) Active confirmed His hearing los s is stable and no change in his regimen was needed today. Problem 07681913 Recurrent major depressive disorder, in partial remission (F33.41) Active confirmed He and his psychiatrist or trying to optimize his antidepressant regimen.His depression currently feels slightly worse. He has the capacity to guaranntee is anxious not to harm himself. Problem 671019455 History of anemia (Z86.2) Active confirmed He has a mild anemia of chronic renal failure which requires no treatment. Problem 510588692 History of herniated intervertebral disc (Z87.39) Active confirmed This is an old problem. He has occasional twinges of back pain and is avoiding heavy lifting. The problem is stable and does not require treatment this time. Problem 623238446 History of bilateral inguinal hernias (Z87.19) Active confirmed The incisions are stable and he is asymptomatic. He is voiding severe heavy lifting. Problem 26437450 Recurrent major depressive disorder, in full remission [...] Date Provider Diagnosis Ari Hatch III, MD [address] [place] [address] [place] [address] 09/02/2024 Ari Hatch Anemia in chronic ki [...] Elevated PSA R97.20 Ari Hatch III, MD [address] [place] [address] [place] [phone] 01/30/2025 Ari Hatch Anemia in chronic ki dney disease D63.1 ; Recurrent major depressive disorder, in full remission F33.42 ; Chronic kidney disease, unspecified CKD stage N18.9 ; Benign prostatic hyperplasia with lower urinary tract symptoms N40.1 ; History of herniated intervertebral disc Z87.39 ; History of bilateral inguinal hernias Z87.19 and Decreased hearing, unspecified laterality H91.90 Ari Hatch III, MD [address] [place] [address] [place] [address] 06/02/2025 Ari Hatch Anemia in chronic ki dney disease D63.1 ; Chronic kidney disease, unspecified CKD stage N18.9 ; History of anemia Z86.2 ; Recurrent major depressive disorder, in partial remission F33.41 ; Benign prostatic hyperplasia with lower urinary tract symptoms N40.1 and History of herniated intervertebral disc Z87.39 Ari Hatch III, MD [address] [place] [address] [place] [address] 08/04/2024 Ari Hatch Chronic kidney disea se, unspecified CKD stage N18.9 ; History of anemia Z86.2 ; Benign prostatic hyperplasia with lower urinary tract symptoms N40.1 ; Hyperlipidemia, unspecified hyperlipidemia type E78.5 and Elevated PSA R97.20 Ari Hatch III, MD [address] [place] [address] [place] [address] 08/01/2024 Ari Hatch Assessments Encounter Date Diagnosis [...] Details Provider Name:Ari Hatch, 09/07/2025 11:00:00 AM, [address] [place] [address] [address], [place], [address], Provider Name:Ari Hatch, 02/02/2026 02:00:00 PM, [address] [place] [address] [address], [place], [address], Insurance Providers Payer Name Payer Address Payer Phone Subscriber Number Group Number Insured Name Patient Relationship to Insured Coverage Start Date Coverage End Date MEDICARE NGS [address] [facility] [place] [address] [id number] Todd Zavala Self - patient is the insured [facility] [address] [place], [place] [id number] Todd Zavala Self - patient is [...] 2017 Hospitalization History Reason Date(Month/Year) No history [facility] 03/2018
--- OUTSIDE RECORDS SUMMARY | 2025-07-30 18:57 | XMS_ITS | Clinical Summary ---
Author Organization [facility] Address [address] [place] [address] Phone Care Team Providers Care Oil Processing Technician Name Role Phone Blanca Noble MD Primary [...] this topic Medical Devices Implanted Type Area Crib Attendant Device Identifier Shelf Expiration Date Model / Serial / Lot Patch Synthetic L14cm 11cmw Abdominal Absorbable Coated Oval Polypropylene [address]h [address] Ca/1ea - [id number] Implanted:Qty: 1 on 08/30/2018 by Yovani Romero MD at [facility] Left: Groin DAVOL 06/15/2020 [id number] / / [id number] Procedures Procedure Name Priority Date/Time Associated Diagnosis Comments VALPROIC ACID Timed 04/22/2018 6:02 AM EDT LIPID PANEL Routine 04/04/2018 6:08 AM EDT from Last 3 Months or Most Recently Relevant to Health Maintenance Results * (ABNORMAL) Valproic acid (04/22/2018 6:02 AM EDT) VALPROIC ACID 36.6(L) 50.0 - 100.0 ug/mL [facility] Blood 04/22/2018 6:02 AM EDT 04/22/2018 6:22 AM EDT Nela Garcia MD LAB BLOOD ORDERABLES Fi nal Result [facility] [address] [place] [address] * (ABNORMAL) Lipid panel (04/04/2018 6:08 AM EDT) HDL 61 mg/dL [facility] Comment: Interpretation: Risk Level Males Decreased >45 mg/dL Average 40-45 mg/dL Increased <40 mg/dL CHOLESTEROL 141 0 - 240 mg/dL [facility] TRIGLYCERIDES 115 30 - 160 mg/dL [facility] LDL 57 50 - 129 mg/dL [facility] Comment: LDL levels in terms of risk for coronary heart disease: <100 mg/dL: Optimal 100-129 mg/dL: Near or above optimal 130-159 mg/dL: Borderline high 160-189 mg/dL: High >190 mg/dL: Very High CARDIAC RISK RATIO 2.3(L) 3.4 - 5.0 C [facility] Blood 04/04/2018 6:08 AM EDT 04/04/2018 6:22 AM EDT Nela Garcia MD LAB BLOOD ORDERABLES Fi nal Result Performing Organization Address City/State/[facility] Co de Phone Number [address] [address] from Last 3 Months or Most Recently Relevant to Health Maintenance Insurance [employer] MEDICARE PART A & B [employer] MEDICARE PART A & B [employer] MEDICARE PART A & B [employer] SU[employer] MEDICARE PART A & B [employer] SUPPLEMENT MEDICARE PART A & [place] [address] [place] [address] MEDEX SUPPLEMENT MEDICARE PART A & B [employer] SU[employer] MEDICARE PART A & B [employer] MEDICARE PART A & B Member Subscriber Plan / Payer ( fective 2012-) Name:Todd Zavala MD Member ID:[id number] Relation to Subscriber:Self Name:Todd Zavala MD Subscriber ID:[id number] Payer ID:[id number] Group ID:Not on file Type:Medicare Address: [place] [address] [employer] MEDEX SUPPLEMENT MEDICARE PART A & B Member Subscriber Plan / Payer ( fective 2012-) Name:Todd Zavala MD Member ID:[id number] Relation to Subscriber:Self Name:Todd Zavala MD Subscriber ID:[id number] Payer ID:[id number] Group ID:Not on file Type:Medicare Address: [place] [address] MEDICARE PART A & B BLUE CROSS MEDEX SUPPLEMENT Advance Directives For more information, please contact: [phone] (9AM - 5PM [facility], Sunday-Sunday) * Full Code (Presumed) (Latest Code Status on File) Date Activated Date Inactivated Comments 08/30/2018 10:47 AM 08/30/2018 4:56 PM * Full Code (Presumed) Date Activated Date Inactivated Comments 04/03/2018 10:11 AM 04/24/2018 6:37 PM * Full Code (Presumed) Date Activated Date Inactivated Comments 04/01/2018 2:10 PM 04/02/2018 8:46 PM Care Teams Oil Processing Technician Relationship Specialty Start Date End Date Blanca Noble MD [address] [place] [address] PCP - General Pulmonary Disease 04/01/18 Additional Source Comments The information contained in this document represents components of the legal health record. It is not the complete legal health record.[facility]
== END 2025-07-30 16:41 | disposition home or self-care (01) ==
LOC: HO.HKA 16:29
PROVIDERS: PCP Internal Medicine Medical Oncology; Visit Provider Internal Medicine Hypertension Specialist
DX: N18.9 Chronic kidney disease, unspecified (principal); N28.1 Cyst of kidney, acquired
CPT/HCPCS: 99214

== ENCOUNTER → 2025-07-30 16:28 | Outpatient (BNVA) | payer MEDICARE, SELFPAY | PROVIDERS: PCP Internal Medicine Medical Oncology; Visit Provider Internal Medicine Hypertension Specialist | DX: E87.6 Hypokalemia (principal); N28.1 Cyst of kidney, acquired; E55.9 Vitamin D deficiency, unspecified; N18.9 Chronic kidney disease, unspecified; I10 Essential (primary) hypertension; R97.20 Elevated prostate specific antigen [PSA] | CPT/HCPCS: 99212 ==